=== PATIENT | male | born 2000 | race Caucasian/White ===

== ENCOUNTER 2020-05-28 09:22 | Outpatient (REF) | payer MEDICAID, SELFPAY | END 2020-05-28 09:23 | disposition home or self-care (01) | LOC: HO.LAB 09:22 | PROVIDERS: Visit Provider Internal Medicine | DX: Z20.822 Contact with and (suspected) exposure to COVID-19 (principal) | CPT/HCPCS: 36415; C9803; U0003; U0005 ==

== ENCOUNTER 2020-07-10 15:00 | Outpatient (REF) | payer MEDICAID, SELFPAY | END 2020-07-10 15:01 | disposition home or self-care (01) | LOC: HO.LAB 15:00 | PROVIDERS: Visit Provider Internal Medicine | DX: Z20.822 Contact with and (suspected) exposure to COVID-19 (principal) | CPT/HCPCS: 36415; C9803; U0003; U0005 ==

== ENCOUNTER 2021-04-17 10:30 | Emergency (ER) | payer OTHER, SELFPAY ==
[2021-04-17 13:55] VITALS: BP 159/81; PULSE 84; RESP 18; TEMP 37; O2SAT 98; BMI 36.5
--- NOTE | 2021-04-17 14:30 | ED_ITS ---
HPI - Back Pain/Injury General Chief Complaint: Back Pain/Injury Stated Complaint: lower back spasms Time Seen by Provider: 04/17/21 14:29 History of Present Illness HPI Narrative: Patient complains of back pain and spasm which started at work when he went to lunch break, not aware of an injury at work No radiation of pain no numbness weakness or tingling no changes to bowel or bladder Related Data Previous Rx's Medication Instructions Recorded acetaminophen 500 mg tablet 1,000 mg PO QID PRN #30 tab 04/17/21 cyclobenzaprine 5 mg tablet 5 mg PO TID PRN #10 tab 04/17/21 ibuprofen 600 mg tablet 600 mg PO Q6H PRN #20 tab 04/17/21 Allergies Allergy/AdvReac Type Severity Reaction Status Date / Time No Known Allergies Allergy Unverified 01/05/20 16:46 Review of Systems Review of Systems: Positive for back pain and spasm Negatives are no fevers no chills no dizziness no weakness no headache no neck pain no chest pain no dysuria no incontinence no changes to bowel or bladder no loss of strength or sensation no numbness weakness or tingling no radiation of pain Yes all other systems are reviewed and are negative [facility] Past Medical History Source: nursing notes reviewed Medical History (Updated 04/18/21 @ 00:00 by Background Daemon) No known health problems Social History Social History Advance Directives: No Advance Directives Information Provided: No Physical Exam Vital Signs: Vital Signs: Last Vital Signs Temp 98.6 F 04/17/21 13:55 Pulse 84 04/17/21 13:55 Resp 18 04/17/21 13:55 BP 159/81 H 04/17/21 13:55 Pulse Ox 98 04/17/21 13:55 BMI result Body Mass Index 36.5 General appearance is no acute distress The head is normocephalic atraumatic Neck is supple nontender Chest is clear to auscultation bilateral Respiratory no distress The abdomen soft nontender The back had lower lumbar paraspinal soft tissue tenderness no focal bony tenderness, pain is easily reproduced with movement, skin was normal, no CVA tenderness Extremities full range of motion x4 Neuro no focal motor sensory deficits Course Course Course Narrative: Patient with musculoskeletal back pain, no neurologic deficit no changes to bowel or bladder is discharged Discharge Plan Discharge Clinical Impression: Strain of lumbar region Patient Disposition: Home, Self-Care Additional Instructions: You can use Tylenol Motrin for pain Flexeril as a muscle relaxer that may cause drowsiness and may be helpful Massage and chiropractor often helpful Follow with your doctor if needed Return any time if worse Prescriptions: New cyclobenzaprine 5 mg tablet 5 mg PO TID PRN (Reason: muscle spasm) Qty: 10 RF: 0 ibuprofen 600 mg tablet 600 mg PO Q6H PRN (Reason: pain) Qty: 20 RF: 0 acetaminophen 500 mg tablet 1,000 mg PO QID PRN (Reason: pain) Qty: 30 RF: 0 Stand Alone Forms: Work/School Release Interventions: ED Discharge Assessment Last Done: 04/17/21 14:50 Discharge Date/Time: 04/17/21 14:51
[2021-04-17] MEDS: Ibuprofen 600 MG TABLET PO (14:49)
== END 2021-04-17 14:51 | disposition home or self-care (01) ==
PROVIDERS: Emergency Provider Emergency Medicine
DX: S39.012A Strain of muscle, fascia and tendon of lower back, initial encounter (principal); X58.XXXA Exposure to other specified factors, initial encounter; Y93.9 Activity, unspecified; Y92.9 Unspecified place or not applicable; Y99.9 Unspecified external cause status
CPT/HCPCS: 99283; 99284

== ENCOUNTER 2021-05-01 12:46 | Outpatient (REF) | payer OTHER, SELFPAY ==
[2021-05-01 13:50] LABS: Binax Internal Control QC Valid; Binax Now Covid-19 Ag Negative (Negative)
== END 2021-05-01 12:47 | disposition home or self-care (01) ==
LOC: HO.LAB 12:46
PROVIDERS: Visit Provider Internal Medicine
DX: Z20.822 Contact with and (suspected) exposure to COVID-19 (principal)
CPT/HCPCS: C9803

== ENCOUNTER 2021-05-08 12:09 | Outpatient (REF) | payer OTHER, SELFPAY ==
[2021-05-08 13:06] LABS: COVID-19 Test Negative (Negative); IDNOW Serial# 16C4AD1C
== END 2021-05-08 12:10 | disposition home or self-care (01) ==
LOC: HO.LAB 12:09
PROVIDERS: Visit Provider Internal Medicine
DX: Z20.822 Contact with and (suspected) exposure to COVID-19 (principal)
CPT/HCPCS: 87635; C9803

== ENCOUNTER 2021-05-28 13:21 | Outpatient (REF) | payer OTHER, SELFPAY ==
[2021-05-28 14:03] LABS: COVID-19 Test Negative (Negative)
== END 2021-05-28 13:22 | disposition home or self-care (01) ==
LOC: HO.LAB 13:21
PROVIDERS: Visit Provider Internal Medicine
DX: Z20.822 Contact with and (suspected) exposure to COVID-19 (principal)
CPT/HCPCS: 87635; C9803

== ENCOUNTER 2021-06-05 13:09 | Outpatient (REF) | payer MEDICAID, SELFPAY ==
[2021-06-05 13:32] LABS: COVID-19 Test Negative (Negative)
== END 2021-06-05 13:10 | disposition home or self-care (01) ==
LOC: HO.LAB 13:09
PROVIDERS: Visit Provider Internal Medicine
DX: Z20.822 Contact with and (suspected) exposure to COVID-19 (principal)
CPT/HCPCS: 87635; C9803

== ENCOUNTER 2022-01-29 11:31 | Emergency (ER) | payer OTHER, SELFPAY ==
--- NOTE | ~2022-01-29 | CT_ITS ---
EXAMINATION: CT ABDOMEN AND PELVIS WITHOUT CONTRAST CLINICAL INFORMATION: Right upper quadrant and right lower quadrant pain COMPARISON: None TECHNIQUE: Multidetector volumetric imaging was performed from the superior aspect of the liver through the pubic symphysis. Sagittal and coronal reformatted images were obtained on the technologist's workstation. This CT examination was performed using dose optimization techniques as appropriate, variously including the following: *Automated exposure control *Adjustment of mA and/or kV according to patient size (this includes techniques or standardized protocols for targeted exams where dose is matched to indication/reason for exam; i.e. extremities or head) *Use of iterative reconstruction technique DLP: 1011 mGy-cm FINDINGS: LUNG BASES: The visualized lung bases are unremarkable. No pleural or pericardial effusion. LIVER, GALLBLADDER, AND BILIARY TREE: The liver is normal in size, shape, and attenuation. No focal hepatic lesion or biliary ductal dilatation is present. The gallbladder is unremarkable with no evidence of radiopaque gallstones, gallbladder wall thickening, or obvious pericholecystic inflammatory changes. PANCREAS: Unremarkable. SPLEEN: Unremarkable. ADRENAL GLANDS: Unremarkable. KIDNEYS AND URETERS: The kidneys are normal in size, shape, and attenuation. No hydronephrosis, hydroureter, or calculi seen. No perinephric stranding. BLADDER: Unremarkable. GASTROINTESTINAL TRACT: No dilated loops of large or small bowel are evident. No free air or free fluid is seen. No pericolonic inflammatory changes seen. The appendix is visualized and appears unremarkable. ABDOMINAL WALL: No significant hernia is appreciated. LYMPH NODES: No lymphadenopathy appreciated. VASCULAR: Unremarkable. PELVIC VISCERA: Unremarkable. OSSEOUS STRUCTURES: Unremarkable. CT/CT abdomen pelvis wo IV con IMPRESSION: No evidence of ileus or obstruction. No evidence of acute appendicitis. No evidence of obstructive uropathy. No evidence of acute cholecystitis. Fleischner guidelines were followed.
--- NOTE | ~2022-01-29 | XR_ITS ---
EXAMINATION: XR CHEST CLINICAL INFORMATION: Pain with inspiration COMPARISON: May 22, 2009 TECHNIQUE: 2 views of the chest were obtained. FINDINGS: No significant abnormality is noted involving the heart, lungs, mediastinum, bony thorax or soft tissues. XR/XR chest 2V IMPRESSION: No acute disease.
[2022-01-29 11:40] VITALS: BP 135/62; PULSE 74; RESP 16; TEMP 36; O2SAT 97; BMI 38.0
[2022-01-29 11:51] LABS: MANUAL DIFF FLAG NO
[2022-01-29 11:53] LABS: Basophils Absolute Auto 0.1 X10*3/uL (0.0-0.2); Basophils Percent Auto 0.6 % (0-2); Eosinophils Absolute Auto 0.2 X10*3/uL (0.0-0.4); Eosinophils Percent Auto 1.6 % (0-4); Hematocrit 44.5 % (42.0-52.0); Hemoglobin 15.5 g/dl (14.0-18.0); Imm Gran Abs Auto 0.04 X10*3/uL (0.00-0.03); Imm Gran Pct Auto 0.4 % (0.0-0.4); Lymphocytes Absolute Auto 2.4 X10*3/uL (1.2-4.9); Lymphocytes Percent Auto 23.9 % (20-40); Mean Corpuscular HGB Conc 34.8 g/dl (31.0-36.0); Mean Corpuscular Hemoglobin 30.9 pg (27.0-33.0); Mean Corpuscular Volume 88.8 fL (80.0-98.0); Mean Platelet Volume 10.5 fL (9.4-12.4); Monocytes Absolute Auto 0.6 X10*3/uL (0.1-1.2); Monocytes Percent Auto 5.5 % (2-11); Neutrophils Absolute Auto 6.8 x10*3/uL (2.0-8.3); Platelet Count 274 X10*3/uL (160-400); Red Blood Count 5.01 X10*6/uL (4.60-5.80); Red Cell Distribution Width 12.3 % (11.0-16.0); White Blood Count 10.1 X10*3/uL (4.8-10.8)
[2022-01-29 12:08] LABS: Anion Gap 14 (12-20); Blood Urea Nitrogen 17 mg/dL (9-16); Calcium 9.8 mg/dL (8.4-10.2); Carbon Dioxide 25 mmol/L (22-29); Chloride 107 mmol/L (96-108); Creatinine Clr Calc Pharmacy 179.2; Estimated Glomerular Filt Rate > 60; Glucose Random 96 mg/dL (60-115); Potassium 4.6 mmol/L (3.3-5.1); Sodium 141 mmol/L (135-145)
--- NOTE | 2022-01-29 15:27 | ED_ITS ---
HPI - Abdominal Pain General Chief Complaint: Abdominal Pain Stated Complaint: pain in lower stomach and back when breathing Time Seen by Provider: 01/29/22 15:11 Source: patient Mode of arrival: ambulatory Limitations: no limitations History of Present Illness HPI narrative: 21-year-old male who presents emergency department for evaluation of lower abdominal pain radiating to his back. The patient states the pain started yesterday mid afternoon while he was resting. He states that the pain came on suddenly and got gradually worse. He states the pain is been constant since onset. He describes the pain is a sharp pain which is 8/10 at its worst. He points to his lower abdomen when asked to localize the pain. Pain is worse with movement and with breathing. This is 1st episode of this type of pain. He did not take any pain medications at home. He denied fever, chills, rhinorrhea, sore throat, cough, chest pain. States he does feel slightly short of breath but denied dyspnea on exertion. Denied nausea or vomiting. He states that over the past 3-4 days he has had diarrhea he describes the diarrhea as watery stool up to 10 episodes per day. MD elicited complaint: abdominal pain Pertinent past history: none Onset (ago): day(s) (1) Pain Consistency: constant Location: RUQ, RLQ and LLQ Severity: severe Pain scale (0-10): 8 Quality: sharp Radiation: none Migration to: no migration Exacerbating factors: movement and other (Breathing) Relieving factors: nothing Associated symptoms: diarrhea Related Data Previous Rx's Medication Instructions Recorded acetaminophen 500 mg tablet 1,000 mg PO QID PRN pain #30 tabs 04/17/21 cyclobenzaprine 5 mg tablet 5 mg PO TID PRN muscle spasm #10 04/17/21 tabs ibuprofen 600 mg tablet 600 mg PO Q6H PRN pain #20 tabs 04/17/21 Allergies Allergy/AdvReac Type Severity Reaction Status Date / Time No Known Allergies Allergy Verified 01/29/22 12:01 Review of Systems Review of Systems Yes all other systems are reviewed and are negative [facility] Past Medical History [facility] Narrative: Past medical history: None. Past surgical history: None. Social history: Patient works for [employer]. He denies tobacco and alcohol use. He smokes marijuana daily, 4 times a day. Medical History No known health problems Social History Social History Advance Directives: No Advance Directives Information Provided: Yes Physical Exam ED Vital Signs: Vital Signs - 24 hr 01/29/22 11:40 Temperature 96.8 F Pulse Rate 74 Respiratory Rate 16 Blood Pressure 135/62 Pulse Oximetry 97 Oxygen Delivery Method Room Air BMI result Body Mass Index 38.0 Const General: cooperative and no acute distress Orientation/consciousness: oriented to person and oriented to place Limitations: no limitations HENMT Head: Yes normal to inspection, Yes normocephalic and Yes atraumatic Ears: external ears normal General nose exam: Normal external nose present Face and sinus: Yes normal facial exam Mouth: Normal oral and palatal mucosa present Throat: Yes posterior oropharynx normal Eyes General: appearance normal, both eyes and all related structures Pupils: Equal, round and reactive pupils present Neck Neck: Yes normal visual inspection, Yes no lymphadenopathy, Yes trachea midline and Yes supple Chest Chest palpation & inspection: normal inspection of the chest and normal palpation of entire chest wall Resp Effort & Inspection: normal respiratory effort and able to speak in complete sentences Auscultation: clear to auscultation bilaterally Cardio Rate: regular rate Rhythm: regular rhythm Heart sounds: S1 normal heart sound present, S2 normal heart sound present and no murmurs GI Inspection: Yes normal to inspection Palpation (GI): Soft to palpation, Tenderness to palpation present (GI) in the LLQ (Mild), in the RLQ (Moderate) and in the RUQ ([id number]) and no guarding Auscultation: normal bowel sounds General: Yes no CVA tenderness Back/Spine/Pelvis Back: no CVA tenderness Skin General skin exam: no rashes or lesions noted Neuro General: oriented to person and oriented to place Cranial nerves: Yes CN's II-XII intact bilaterally and Yes Equal, round and reactive pupils present Cognition (Neuro): normal cognition Motor exam (neuro): 5/5 motor strength present throughout Extrem General: Yes normal to inspection Psych Appearance: grossly normal Speech and movement: Normal speech and movement present Affect: normal affect Attitude: cooperative Thought process: Normal thought process present Thought content: Normal thought content present Course Course Course Narrative: 21-year-old male who presents emergency department for evaluation of lower abdominal pain which came on at rest yesterday mid afternoon, the pain is sharp, constant and 8/10. Patient has also had diarrhea for 3-4 days, up to 10 stools per day. Vital signs were normal. Physical examination did reveal mild left lower quadrant tenderness, moderate to severe right lower quadrant tenderness and mild to moderate right upper quadrant tenderness. Laboratory evaluation was ordered at triage glued CBC, CMP and chest x-ray. These tests were unremarkable. I did add liver panel and lipase. I also ordered a urinalysis, COVID-19/influenza and CT scan of the abdomen pelvis without IV contrast. Patient was ordered to get normal saline IV x1 L, Toradol 30 mg IV and Zofran 4 mg IV. 1536: Liver panel and lipase were normal. Patient got very minimal improvement of his pain with the above treatment. Re-examination of the patient's abdomen revealed no RUQ tenderness, moderate RLQ tenderness. Patient was ordered to get Zofran 4 mg IV. I did discuss the patient's presentation with our covering surgeon, Dr. Rico. Given his diarrhea it is possible the patient may have some type of viral infection causing his pain however appendicitis stones to be considered. The plan will be to treat his pain in the emergency department and sent him home with surgical follow-up within the next 1-2 days . Patient was advised to return to the emergency department however his pain was not completely resolve in 24 hours or if it was worse in any way. 1916: Patient's pain is 3/10. He does not want any further pain medications. The patient was discharged home. MDM - Abdominal Pain Lab Data Result diagrams: 01/29/22 11:46 01/29/22 11:46 Labs: Lab Results 01/29/22 01/29/22 01/29/22 Range/Units 11:46 11:46 16:15 WBC 10.1 (4.8-10.8) X10*3/uL RBC 5.01 (4.60-5.80) X10*6/uL Hgb 15.5 (14.0-18.0) g/dl Hct 44.5 (42.0-52.0) % MCV 88.8 (80.0-98.0) fL MCH 30.9 (27.0-33.0) pg MCHC 34.8 (31.0-36.0) g/dl RDW 12.3 (11.0-16.0) % Plt Count 274 (160-400) X10*3/uL MPV 10.5 (9.4-12.4) fL Immature Gran % (Auto) 0.4 (0.0-0.4) % Neut % (Auto) 68.0 (45-73) % Lymph % (Auto) 23.9 (20-40) % [place] % (Auto) 5.5 (2-11) % Eos % (Auto) 1.6 (0-4) % Baso % (Auto) 0.6 (0-2) % Lymph # (Auto) 2.4 (1.2-4.9) X10*3/uL [place] # (Auto) 0.6 (0.1-1.2) X10*3/uL Eos # (Auto) 0.2 (0.0-0.4) X10*3/uL Baso # (Auto) 0.1 (0.0-0.2) X10*3/uL Abs Immat Gran (auto) 0.04 H (0.00-0.03) X10*3/uL Absolute Neuts (auto) 6.8 (2.0-8.3) x10*3/uL Absolute Nucleated RBC 0.000 (0.0-0.012) X10*3/uL Nucleated RBC % (auto) 0.0 (0.0-0.2) /100WBC Sodium 141 (135-145) mmol/L Potassium 4.6 (3.3-5.1) mmol/L Chloride 107 (96-108) mmol/L Carbon Dioxide 25 (22-29) mmol/L Anion Gap 14 (12-20) BUN 17 H (9-16) mg/dL Creatinine 0.79 (0.5-1.4) mg/dL Estim Creat Clear Calc 179.2 Estimated GFR > 60 Random Glucose 96 (60-115) mg/dL Calcium 9.8 (8.4-10.2) mg/dL Total Bilirubin 0.3 (0.0-1.0) mg/dL Direct Bilirubin < 0.2 (0.0-0.5) mg/dL AST 47 H (5-37) U/L ALT 88 H (0-40) U/L Alkaline Phosphatase 78 (39-117) U/L Total Protein 7.4 (6.5-8.0) g/dL Albumin 4.5 (3.5-5.0) g/dL Lipase 16 (8-78) U/L COVID-19 (CHANDRA) (Negative) COVID-19 Clin Com Influenza Type A (BERNICE) Negative (Negative) Influenza Type B (BERNICE) Negative (Negative) Influenza A & B Note See Note 01/29/22 Range/Units 16:15 WBC (4.8-10.8) X10*3/uL RBC (4.60-5.80) X10*6/uL Hgb (14.0-18.0) g/dl Hct (42.0-52.0) % MCV (80.0-98.0) fL MCH (27.0-33.0) pg MCHC (31.0-36.0) g/dl RDW (11.0-16.0) % Plt Count (160-400) X10*3/uL MPV (9.4-12.4) fL Immature Gran % (Auto) (0.0-0.4) % Neut % (Auto) (45-73) % Lymph % (Auto) (20-40) % [place] % (Auto) (2-11) % Eos % (Auto) (0-4) % Baso % (Auto) (0-2) % Lymph # (Auto) (1.2-4.9) X10*3/uL [place] # (Auto) (0.1-1.2) X10*3/uL Eos # (Auto) (0.0-0.4) X10*3/uL Baso # (Auto) (0.0-0.2) X10*3/uL Abs Immat Gran (auto) (0.00-0.03) X10*3/uL Absolute Neuts (auto) (2.0-8.3) x10*3/uL Absolute Nucleated RBC (0.0-0.012) X10*3/uL Nucleated RBC % (auto) (0.0-0.2) /100WBC Sodium (135-145) mmol/L Potassium (3.3-5.1) mmol/L Chloride (96-108) mmol/L Carbon Dioxide (22-29) mmol/L Anion Gap (12-20) BUN (9-16) mg/dL Creatinine (0.5-1.4) mg/dL Estim Creat Clear Calc Estimated GFR Random Glucose (60-115) mg/dL Calcium (8.4-10.2) mg/dL Total Bilirubin (0.0-1.0) mg/dL Direct Bilirubin (0.0-0.5) mg/dL AST (5-37) U/L ALT (0-40) U/L Alkaline Phosphatase (39-117) U/L Total Protein (6.5-8.0) g/dL Albumin (3.5-5.0) g/dL Lipase (8-78) U/L COVID-19 (CHANDRA) Negative (Negative) COVID-19 Clin Com See Note Influenza Type A (BERNICE) (Negative) Influenza Type B (BERNICE) (Negative) Influenza A & B Note Discharge Plan Discharge Clinical Impression: Abdominal pain Qualifiers: Abdominal location: right lower quadrant Qualified Code(s): R10.31 - Right lower quadrant pain Diarrhea Qualifiers: Diarrhea type: unspecified type Qualified Code(s): R19.7 - Diarrhea, unspecified Patient Disposition: Home, Self-Care Instructions: Abdominal Pain (ED) Additional Instructions: Your laboratory evaluation was normal. Your chest x-ray was unremarkable. Your CT scan of the abdomen pelvis was unremarkable. At this time, your appendix appears normal however you can still have appendicitis with a normal appearing appendix on a CT scan I did talk to our surgeon on-call, Dr. Rico. She wants you to call the surgical office tomorrow morning and make a follow-up within 1-2 days with a provider in the office. Take ibuprofen 200 mg pills, 3 pills every 6 hours as needed for pain. Take Tylenol (acetaminophen) 500 mg pills, 2 pills every 4 to 6 hours as needed for pain. If your pain gets worse over the next 24 hours or does not resolve completely and the surgeon cannot see you , you should return to the emergency department so that we can re-evaluate you for possible appendicitis. Please return to the emergency department if your symptoms get worse or if you develop any symptoms that are concerning to you. Prescriptions: No Action cyclobenzaprine 5 mg tablet 5 mg PO TID PRN (Reason: muscle spasm) Qty: 10 0RF ibuprofen 600 mg tablet 600 mg PO Q6H PRN (Reason: pain) Qty: 20 0RF acetaminophen 500 mg tablet 1,000 mg PO QID PRN (Reason: pain) Qty: 30 0RF
[2022-01-29 15:29] LABS: Alanine Aminotransferase 88 U/L (0-40); Albumin Level 4.5 g/dL (3.5-5.0); Alkaline Phosphatase 78 U/L (39-117); Aspartate Amino Transferase 47 U/L (5-37); Bilirubin Direct < 0.2 mg/dL (0.0-0.5); Bilirubin Total 0.3 mg/dL (0.0-1.0); Lipase 16 U/L (8-78); Total Protein 7.4 g/dL (6.5-8.0)
[2022-01-29] MEDS: ondansetron HCL 4 MG/2 ML VIAL IVPUSH (15:49)
[2022-01-29] MEDS: Ketorolac Tromethamine 15 MG/ML VIAL 30 MG IVPUSH (15:49)
[2022-01-29] MEDS: 0.9 % Sodium Chloride 1,000 ML 999 ML IV (15:58)
[2022-01-29 16:41] LABS: COVID-19 Test Negative (Negative); IDNOW Serial# 16C4AD1C; Influenza A Negative (Negative); Influenza B2 Negative (Negative)
[2022-01-29] MEDS: Morphine Sulfate 4 MG/ML CARTRIDGE IVPUSH (17:33)
== END 2022-01-29 19:33 | disposition home or self-care (01) ==
PROVIDERS: Emergency Provider Emergency Medicine Emergency Medical Services
DX: R07.89 Other chest pain (principal); R06.02 Shortness of breath; R10.9 Unspecified abdominal pain; R10.32 Left lower quadrant pain; Z20.822 Contact with and (suspected) exposure to COVID-19; Z79.899 Other long term (current) drug therapy
CPT/HCPCS: 36415; 71046; 74176; 80048; 80076; 83690; 85025; 87502; 87635; 96361; 96374; 96375; 99283; 99284; J1885; J2270; J2405

== ENCOUNTER 2022-01-30 11:09 | Emergency (ER) | payer OTHER, SELFPAY ==
--- NOTE | ~2022-01-30 | US_ITS ---
EXAMINATION: US ABDOMEN LIMITED CLINICAL INFORMATION: Upper abdominal pain. COMPARISON: None TECHNIQUE: Real-time imaging of the right upper quadrant abdominal viscera. The control clerk repairs reports that the study is quite limited due to patient body cyst. FINDINGS: PANCREAS: Obscured by bowel gas and patient body habitus. LIVER: Portions of the liver are not seen. The portions of the liver that are identified by the control clerk repairs near the gallbladder fossa do appear grossly normal. There is no evidence of intrahepatic biliary dilatation. GALLBLADDER: Normal. The gallbladder is physiologically distended without evidence of stones, sludge, polyps, wall thickening or pericholecystic fluid. COMMON BILE DUCT: Normal in caliber measuring 0.5 cm in diameter. RIGHT KIDNEY: Right kidney is not evaluated by the control clerk repairs due to patient body habitus. US/US abdomen limited IMPRESSION: Very limited study. No gallstones. CT would be advised for more complete evaluation of this particular case.
--- NOTE | ~2022-01-30 | CT_ITS ---
EXAMINATION: CT ABDOMEN AND PELVIS WITH CONTRAST CLINICAL INFORMATION: Right lower quadrant tenderness, worsening pain. COMPARISON: Ultrasound abdomen 01/30/2022 TECHNIQUE: Multidetector volumetric images were obtained from the superior aspect of the liver through the pubic symphysis following administration 85 mL of Omnipaque 350 intravenous contrast. Sagittal and coronal reformatted images were obtained on the technologist's workstation. Oral contrast: No This CT examination was performed using dose optimization techniques as appropriate, variously including the following: *Automated exposure control *Adjustment of mA and/or kV according to patient size (this includes techniques or standardized protocols for targeted exams where dose is matched to indication/reason for exam; i.e. extremities or head) *Use of iterative reconstruction technique DLP: 1060 mGy-cm FINDINGS: LUNG BASES: The visualized lung bases are unremarkable. LIVER, GALLBLADDER, AND BILIARY TREE: The liver is normal in size, shape, and attenuation. No focal hepatic lesion or biliary ductal dilatation is present. The gallbladder is unremarkable with no evidence of radiopaque gallstones, gallbladder wall thickening, or obvious pericholecystic inflammatory changes. PANCREAS: Unremarkable. SPLEEN: Unremarkable. ADRENAL GLANDS: Unremarkable. KIDNEYS AND URETERS: The kidneys are normal in size, shape, and attenuation. No hydronephrosis, hydroureter, or calculi seen. No perinephric stranding. BLADDER: Unremarkable. GASTROINTESTINAL TRACT: There is scattered stool seen throughout the colon without distention. The small bowel loops are normal caliber. The appendix is normal caliber. No inflammatory process seen in the abdomen. ABDOMINAL WALL: No significant hernia is appreciated. LYMPH NODES: Normal. VASCULAR: Unremarkable. PELVIC VISCERA: The prostate gland is normal size. Periprosthetic fat planes are preserved. OSSEOUS STRUCTURES: No aggressive lytic or sclerotic process seen. CT/CT abdomen pelvis w IV con IMPRESSION: No acute intra-abdominal process seen. Normal appendix. Fleischner guidelines were followed.
[2022-01-30 11:15] VITALS: BP 116/95; PULSE 67; RESP 18; TEMP 37.2; O2SAT 98; BMI 38.0
--- NOTE | 2022-01-30 12:27 | ED.ABDPAIN ---
HPI - Abdominal Pain General Chief Complaint: Abdominal Pain Stated Complaint: abd pain Time Seen by Provider: 01/30/22 12:25 Source: patient Mode of arrival: ambulatory Limitations: no limitations History of Present Illness HPI narrative: 21-year-old male presents to the ER for re-evaluation of lower abdominal pain. He was seen here in the emergency department yesterday, had unremarkable lab workup and a CT scan of his abdomen and pelvis that was normal. He had right lower quadrant tenderness on examination with concern for possible appendicitis. This surgeon was contacted by the ER provider and outpatient follow up was recommended. He called the Surgeon Office this morning and made an appointment for tomorrow at 3pm. Patient states this morning of his right lower quadrant pain. He states the pain is worse in his right lower quadrant when he stands up, walks or takes deep breaths. He had 1 episode of diarrhea today, this is overall improved from the last 1 week where he was having up to 10 episodes of nonbloody diarrhea per day. He denies any nausea, vomiting, fever, chills. He states he is back for re-evaluation because he was told to come back if his abdominal pain worsened at all. MD elicited complaint: abdominal pain Pertinent past history: none Onset (ago): day(s) Pain Consistency: constant Location: RLQ and LLQ Severity: moderate Pain scale (0-10): 7 Quality: aching and fullness Radiation: LLQ Exacerbating factors: other (Deep breaths, walking, standing) Relieving factors: other (Lying supine) Context: history of similar episodes Associated symptoms: diarrhea Related Data Previous Rx's Medication Instructions Recorded acetaminophen 500 mg tablet 1,000 mg PO QID PRN pain #30 tabs 04/17/21 cyclobenzaprine 5 mg tablet 5 mg PO TID PRN muscle spasm #10 04/17/21 tabs ibuprofen 600 mg tablet 600 mg PO Q6H PRN pain #20 tabs 04/17/21 amoxicillin 875 mg-potassium 1 tab PO BID #20 tabs 01/30/22 clavulanate 125 mg tablet oxycodone 5 mg tablet 5 mg PO Q8H PRN severe pain (scale 01/30/22 score 7-10) #5 tabs Allergies Allergy/AdvReac Type Severity Reaction Status Date / Time No Known Allergies Allergy Verified 01/29/22 12:01 Review of Systems Review of Systems Constitutional: No Fever, No Chills ENT/Mouth: No sore throat, No Rhinorrhea, No Swallowing Difficulty Cardiovascular: No Chest Pain, No SOB, No Orthopnea, No Edema Respiratory: No Cough, No Sputum, No Wheezing, No dyspnea Gastrointestinal: No Nausea, No Vomiting, + Diarrhea, + abdominal Pain, No Hematochezia, No Melena Genitourinary: No Dysuria, No Urinary Frequency, No Hematuria Musculoskeletal: No joint pain, No Myalgias Skin: No Skin Lesions, No rash Neuro: No Weakness, No Numbness, No Dizziness, No Headache Psych: No Anxiety/Panic, No Depression Heme/Lymph: No Bruising, No Lymphadenopathy Endocrine: No Polyuria, No Polydipsia PMFSH Past Medical History Medical History No known health problems Social History Social History Advance Directives: No Advance Directives Information Provided: Yes Physical Exam ED Vital Signs: Vital Signs - 24 hr 01/30/22 11:15 Temperature 98.9 F Pulse Rate 67 Respiratory Rate 18 Blood Pressure 116/95 H Pulse Oximetry 98 Oxygen Delivery Method Room Air BMI result Body Mass Index 38.0 Appearance: Alert. Oriented X3. No acute distress. Eyes: Pupils equal, round and reactive to light. ENT: Pharynx normal. Neck: Normal inspection. Neck supple. CVS: Normal heart rate and rhythm. Pulses normal. Respiratory: No respiratory distress. Breath sounds normal. Abdomen: Soft with RLQ tenderness to deep palpation, no guarding or rebound +BS x4 Skin: Skin warm and dry. Normal skin color. Normal skin turgor. No rashes. Extremities: No lower extremity edema. Neuro: Oriented X 3. No motor deficit. No sensory deficit. Course Course Course Narrative: 21-year-old male presenting to the ER for worsening right lower quadrant pain. He was seen here in the emergency department last night, no evidence of appendicitis on his CT scan. He is here with worsening pain. He does have pain to deep palpation of the right lower quadrant. Case was discussed with Dr. Osei. He is recommending repeat CT scan will, use of IV contrast this time. Patient agreeable with plan. Will also get ultrasound of his gallbladder, given increase in pain with inspiration and this could be referred pain from the gallbladder. Reevaluation(s) Reevaluation #1: Labs are unremarkable. No leukocytosis. Ultrasound is not showing any evidence of gallstones or cholecystitis. His abdominal CT scan was reviewed by Dr. Osei. At this time we are recommending patient go home with empiric oral antibiotics, pain control and plan to follow-up with surgery office tomorrow. 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 Return precautions were discussed and he agrees to follow-up with the surgeon tomorrow 15:00 as previously scheduled. Stable for DC. MDM - Abdominal Pain Lab Data Result diagrams: 01/30/22 12:50 01/30/22 12:50 Labs: Lab Results 01/30/22 01/30/22 01/30/22 Range/Units 12:50 12:50 13:31 WBC 8.2 (4.8-10.8) X10*3/uL RBC 4.96 (4.60-5.80) X10*6/uL Hgb 15.3 (14.0-18.0) g/dl Hct 43.9 (42.0-52.0) % MCV 88.5 (80.0-98.0) fL MCH 30.8 (27.0-33.0) pg MCHC 34.9 (31.0-36.0) g/dl RDW 12.4 (11.0-16.0) % Plt Count 251 (160-400) X10*3/uL MPV 10.8 (9.4-12.4) fL Immature Gran % (Auto) 0.5 H (0.0-0.4) % Neut % (Auto) 65.9 (45-73) % Lymph % (Auto) 25.5 (20-40) % Holmes % (Auto) 5.9 (2-11) % Eos % (Auto) 1.6 (0-4) % Baso % (Auto) 0.6 (0-2) % Lymph # (Auto) 2.1 (1.2-4.9) X10*3/uL [place] # (Auto) 0.5 (0.1-1.2) X10*3/uL Eos # (Auto) 0.1 (0.0-0.4) X10*3/uL Baso # (Auto) 0.1 (0.0-0.2) X10*3/uL Abs Immat Gran (auto) 0.04 H (0.00-0.03) X10*3/uL Absolute Neuts (auto) 5.4 (2.0-8.3) x10*3/uL Absolute Nucleated RBC 0.000 (0.0-0.012) X10*3/uL Nucleated RBC % (auto) 0.0 (0.0-0.2) /100WBC Sodium 139 (135-145) mmol/L Potassium 4.6 (3.3-5.1) mmol/L Chloride 106 (96-108) mmol/L Carbon Dioxide 24 (22-29) mmol/L Anion Gap 14 (12-20) BUN 11 (9-16) mg/dL Creatinine 0.77 (0.5-1.4) mg/dL Estim Creat Clear Calc 183.8 Estimated GFR > 60 Random Glucose 92 (60-115) mg/dL Calcium 9.1 D (8.4-10.2) mg/dL Magnesium 1.7 (1.6-2.6) mg/dL Total Bilirubin 0.4 (0.0-1.0) mg/dL Direct Bilirubin 0.2 (0.0-0.5) mg/dL AST 40 H (5-37) U/L ALT 76 H (0-40) U/L Alkaline Phosphatase 71 (39-117) U/L Total Protein 6.9 (6.5-8.0) g/dL Albumin 4.1 (3.5-5.0) g/dL Urine Color Yellow Urine Appearance Clear Urine pH 5.5 (5.0-9.0) Ur Specific [place] 1.020 (1.005-1.025) Urine Protein Negative (Neg-Trace) mg/dL Urine Glucose (UA) Negative (Negative) mg/dL Urine Ketones Negative (Negative) mg/dL Urine Blood Negative (Negative) Urine Nitrite Negative (Negative) Ur Leukocyte Esterase Trace H (Negative) Urine RBC 0-2 (0-2) /HPF Urine WBC 0-5 (0-5) /HPF Ur Squamous Epith Cells 0-2 (0-2) /HPF Urine Bacteria None Seen (None Seen) Hyaline Casts 0-2 (0-2) /LPF Discharge Plan Discharge Clinical Impression: Abdominal pain Patient Disposition: Home, Self-Care Instructions: Acute Abdominal Pain (ED) Additional Instructions: Your lab workup today was unremarkable. Your ultrasound did not show any evidence of gallstones. Your CT scan did not show any evidence of acute appendicitis or any acute cause of your pain. The surgeon is recommending that you start oral antibiotics, oral pain medication and follow-up with them in the office at tomorrow at 03:00 o'clock as scheduled. Stick to a bland diet where not feeling well. Recommend [id number] Pepto-Bismol or Imodium as needed for upset stomach and diarrhea. If you develop new or worsening symptoms call 911 or come back to the ER for further evaluation. Prescriptions: New amoxicillin-pot clavulanate 875-125 mg tablet 1 tab PO BID Qty: 20 0RF oxycodone 5 mg tablet 5 mg PO Q8H PRN (Reason: severe pain (scale score 7-10)) Qty: 5 0RF Rx Instructions: Partial Fill upon patient request. No Action cyclobenzaprine 5 mg tablet 5 mg PO TID PRN (Reason: muscle spasm) Qty: 10 0RF ibuprofen 600 mg tablet 600 mg PO Q6H PRN (Reason: pain) Qty: 20 0RF acetaminophen 500 mg tablet 1,000 mg PO QID PRN (Reason: pain) Qty: 30 0RF Referrals: Jonas Osei MD [Physician] - (RLQ pain)
[2022-01-30 12:56] LABS: MANUAL DIFF FLAG NO
[2022-01-30 13:04] LABS: Basophils Absolute Auto 0.1 X10*3/uL (0.0-0.2); Basophils Percent Auto 0.6 % (0-2); Eosinophils Absolute Auto 0.1 X10*3/uL (0.0-0.4); Eosinophils Percent Auto 1.6 % (0-4); Hematocrit 43.9 % (42.0-52.0); Hemoglobin 15.3 g/dl (14.0-18.0); Imm Gran Abs Auto 0.04 X10*3/uL (0.00-0.03); Imm Gran Pct Auto 0.5 % (0.0-0.4); Lymphocytes Absolute Auto 2.1 X10*3/uL (1.2-4.9); Lymphocytes Percent Auto 25.5 % (20-40); Mean Corpuscular HGB Conc 34.9 g/dl (31.0-36.0); Mean Corpuscular Hemoglobin 30.8 pg (27.0-33.0); Mean Corpuscular Volume 88.5 fL (80.0-98.0); Mean Platelet Volume 10.8 fL (9.4-12.4); Monocytes Absolute Auto 0.5 X10*3/uL (0.1-1.2); Monocytes Percent Auto 5.9 % (2-11); Neutrophils Absolute Auto 5.4 x10*3/uL (2.0-8.3); Neutrophils Percent Auto 65.9 % (45-73); Platelet Count 251 X10*3/uL (160-400); Red Blood Count 4.96 X10*6/uL (4.60-5.80); Red Cell Distribution Width 12.4 % (11.0-16.0); White Blood Count 8.2 X10*3/uL (4.8-10.8)
[2022-01-30 13:19] LABS: Alanine Aminotransferase 76 U/L (0-40); Albumin Level 4.1 g/dL (3.5-5.0); Alkaline Phosphatase 71 U/L (39-117); Anion Gap 14 (12-20); Aspartate Amino Transferase 40 U/L (5-37); Bilirubin Direct 0.2 mg/dL (0.0-0.5); Bilirubin Total 0.4 mg/dL (0.0-1.0); Blood Urea Nitrogen 11 mg/dL (9-16); Calcium 9.1 mg/dL (8.4-10.2); Carbon Dioxide 24 mmol/L (22-29); Chloride 106 mmol/L (96-108); Creatinine Clr Calc Pharmacy 183.8; Estimated Glomerular Filt Rate > 60; Glucose Random 92 mg/dL (60-115); Magnesium 1.7 mg/dL (1.6-2.6); Potassium 4.6 mmol/L (3.3-5.1); Sodium 139 mmol/L (135-145); Total Protein 6.9 g/dL (6.5-8.0)
[2022-01-30 13:41] LABS: Appearance Urine Clear; Color Urine Yellow; Glucose Urine UA Negative (Negative); Leukocyte Esterase Urine Trace (Negative); Nitrite Urine Negative (Negative); PH 5.5 (5.0-9.0); UMIC TRIGGER UACC YES; Urine Blood Negative (Negative); Urine Ketones Negative (Negative); Urine Protein Negative (Neg-Trace)
[2022-01-30 13:44] LABS: Bacteria Urine None Seen (None Seen); Hyaline Casts Urine 0-2 /LPF (0-2); RBC Urine 0-2 /HPF (0-2); Squamous Epithelial Cell Urine 0-2 /HPF (0-2); WBC Urine 0-5 /HPF (0-5)
[2022-01-30] MEDS: iohexoL 350 MG/ML 100 ML INFUS..BTL IV (16:13)
[2022-01-30 17:59] LABS: COVID-19 Test Negative (Negative)
--- NOTE | 2022-01-30 18:00 | HE.PHANOTE ---
[discharge] went to do med rec was told that admission was decided against
== END 2022-01-30 18:17 | disposition home or self-care (01) ==
PROVIDERS: Physician Assistant; Emergency Provider Student in an Organized Health Care Education/Training Program
DX: R10.30 Lower abdominal pain, unspecified (principal); Z20.822 Contact with and (suspected) exposure to COVID-19
CPT/HCPCS: 36415; 74177; 76705; 80048; 80076; 81001; 83735; 85025; 87635; 99284; Q9967

== ENCOUNTER → 2022-01-31 14:50 | Outpatient (BNVA) | payer OTHER, SELFPAY | PROVIDERS: Visit Provider Internal Medicine | DX: R74.8 Abnormal levels of other serum enzymes (principal); K52.9 Noninfective gastroenteritis and colitis, unspecified | CPT/HCPCS: 99202 ==

== ENCOUNTER 2023-02-10 15:50 | Outpatient (AMB) | payer OTHER, SELFPAY ==
[2023-02-10 16:06] VITALS: BP 122/68; PULSE 85; TEMP 36.6; O2SAT 98; BMI 38.0
--- NOTE | 2023-02-10 16:06 | MHC.OFFWIV ---
Intake Vital Signs 02/10/23 16:06 Height 5 ft 8 in Weight 250 lb BMI 38.0 BP 122/68 Blood Pressure Location Rt brachial Position Sitting Pulse 85 Pulse Source Pulse Oximeter Temp 97.8 F Temp Source Temporal Artery Scan Pulse Oximetry (%) 98 Intake Visit Reasons: EP, UTI? Intake Note: pt is here for c/o possible uti Patient Tobacco Use Status: Never used Tobacco Allergies No Known Allergies Allergy (Verified 02/11/23 06:36) Medication List - Last Reconciled 02/11/23 by Jose Mejia MD sulfamethoxazole-trimethoprim 800-160 mg (Bactrim DS) 1 tab PO BID 5 days Do you need a note to return to daycare/school/sports/work: Yes HPI EP, UTI? 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 She has been seeing independently for painful symptoms during intercourse. Patient would like to have his urine checked. He has reported 1 or 2 episodes of urinary incontinence. [facility] Medical History No known health problems Social History Household Members: Family Alcohol intake: never Patient Tobacco Use Status: Never used Tobacco Tobacco use type: Cigarette Substance Use Type: Marijuana Physical Exam Vital Signs: Last Vital Signs Temp 97.8 F 02/10/23 16:06 Pulse 85 02/10/23 16:06 BP 122/68 02/10/23 16:06 Pulse Ox 98 02/10/23 16:06 BMI result Body Mass Index 38.0 Const General: cooperative, healthy appearing, alert and awake Results AMB Urinalysis, Automated UA Leukoctes 0 Eren/uL Last Edit by Lion Corbett CMA on 02/10/23 16:23 UA Nitrite Negative Last Edit by Lion Corbett CMA on 02/10/23 16:23 UA Urobilinogen 0.2 mg/dL Last Edit by Lion Corbett CMA on 02/10/23 16:23 UA Protein 0 mg/dL Last Edit by Lion Corbett CMA on 02/10/23 16:23 UA pH 6.0 Last Edit by Lion Corbett CMA on 02/10/23 16:23 UA Blood 0 Spike/uL Last Edit by Lion Corbett CMA on 02/10/23 16:23 UA Specific [place] 1.025 Last Edit by Lion Corbett CMA on 02/10/23 16:23 UA Ketone Negative Last Edit by Lion Corbett CMA on 02/10/23 16:23 UA Bilirubin 0 mg/dL Last Edit by Lion Corbett CMA on 02/10/23 16:23 UA Glucose 0 mg/dL Last Edit by Lion Corbett CMA on 02/10/23 16:23 Results Reviewed Results Reviewed: Laboratory Last Values Urine pH (Auto) 6.0 02/10/23 16:19 Specific [place] (Auto) 1.025 02/10/23 16:19 Urine Protein (Auto) 0 mg/dL 02/10/23 16:19 Glucose (UA)(Auto) 0 mg/dL 02/10/23 16:19 Urine Ketones (Auto) Negative 02/10/23 16:19 Urine Blood (Auto) 0 Spike/uL 02/10/23 16:19 Urine Nitrite (Auto) Negative 02/10/23 16:19 Urine Bilirubin (Auto) 0 mg/dL 02/10/23 16:19 Urine Urobilinogen (Auto) 0.2 mg/dL 02/10/23 16:19 Leukocyte Esterase (Auto) 0 Eren/uL 02/10/23 16:19 Assessment & Plan Assessment & Plan (1) Urinary incontinence: Code(s): R32 - Unspecified urinary incontinence Plan: Prophylactic antibiotics called in. Urinalysis was reviewed. If symptoms not improved to follow-up here. Orders: Orders AMB Urinalysis Automated 02/10/23 Z13.9 - Encounter for screening, unspecified Medications: New sulfamethoxazole-trimethoprim 800-160 mg (Bactrim DS) 1 tab PO BID 5 days 10 tabs 0RF Coding Level of Care Code Est Pt Level 3 (79517) Diagnoses Urinary incontinence R32
== END 2023-02-10 16:42 | disposition home or self-care (01) ==
PROVIDERS: Visit Provider Internal Medicine
DX: R32 Unspecified urinary incontinence (principal)
CPT/HCPCS: 81003; 99213

== ENCOUNTER 2023-02-28 10:34 | Emergency (ER) | payer OTHER, SELFPAY ==
[2023-02-28 10:40] VITALS: BP 135/84; PULSE 67; RESP 16; TEMP 36; O2SAT 97; BMI 35.0
--- NOTE | 2023-02-28 10:41 | ED.URI ---
HPI - URI/Sore Throat General Chief Complaint: Upper Respiratory Symptoms Stated Complaint: sore throat Time Seen by Provider: 02/28/23 10:40 Source: patient Mode of arrival: ambulatory Limitations: no limitations History of Present Illness HPI Narrative: patient is 23 year old male who presents emergency department for evaluation of sore throat x4 days, painful swallowing. Awoke this morning with redness to the left eye and eyes crusted shut with small amount of drainage. Denies fevers, chills, your pain, neck pain, neck stiffness, headache, shortness of breath, difficulty breathing. Denies known sick contacts. Related Data Previous Rx's Medication Instructions Recorded sulfamethoxazole 800 1 tab PO BID 5 days #10 tabs 02/10/23 mg-trimethoprim 160 mg tablet (Bactrim DS) penicillin V potassium 500 mg 500 mg PO BID #19 tabs 02/28/23 tablet polymyxin B sulfate 10,000 1 drp ophthalmic (eye) Q3H 7 days 02/28/23 unit-trimethoprim 1 mg/mL eye #10 mL drops (Polytrim) Allergies Allergy/AdvReac Type Severity Reaction Status Date / Time No Known Allergies Allergy Verified 02/11/23 06:36 Review of Systems Review of Systems: Yes all other systems are reviewed and are negative PMFSH Past Medical History Attestation statement: The following information was validated with the patient. Source: old records reviewed Medical History No known health problems Social History Social History Household Members: Family Alcohol intake: never Patient Tobacco Use Status: Never used Tobacco Tobacco use type: Cigarette Substance Use Type: Marijuana Advance Directives: No Advance Directives Information Provided: No Physical Exam Vital Signs: Vital Signs: Last Vital Signs Temp 96.8 F 02/28/23 10:40 Pulse 67 02/28/23 10:40 Resp 16 02/28/23 10:40 BP 135/84 02/28/23 10:40 Pulse Ox 97 02/28/23 10:40 O2 Del Method Room Air 02/28/23 10:40 BMI result Body Mass Index 35.0 Appearance: Alert.?Oriented to person, place and time. No acute distress.?Normal affect. Eyes: Pupils equal, round and reactive to light.? left sclera injected, conjunctiva erythematous. ENT: TM normal bilaterally. Pharynx Erythematous with tonsillar hypertrophy 2+ bilaterally, with white exudates, uvula midline, no trismus, no drooling Neck: Normal inspection.? Neck supple.??No cervical adenopathy CVS: Heart sounds normal. Normal heart rate and rhythm.? Pulses normal.?? Respiratory: No respiratory distress.? Lung sounds clear to auscultation bilaterally?? Abdomen: Soft and non-tender. Normoactive bowel sounds. Skin: Skin warm and dry.? Normal skin color.? ? Extremities: No lower extremity edema.? Neuro: Moves all extremities spontaneously. Sensation intact bilaterally. No motor deficits. Ambulates with normal steady gait. Medical Decision Making Medical Decision Making [facility] Narrative: Patient is a 23 old male presents emergency department for evaluation of sore throat left eye redness, noted to have streptococcal pharyngitis without evidence of peritonsillar or retropharyngeal abscess, managing secretions, swallowing normally, not consistent with Helio's angina. Most likely bacterial conjunctivitis of the left eye, versus viral conjunctivitis. Sent prescription for antibiotic to pharmacy, discussed conservative treatment, reviewed worrisome signs and symptoms that would warrant re-evaluation in the emergency department, all questions answered. Stable for discharge. Differential Diagnosis Differential Diagnoses: The differential diagnosis associated with the presentation includes ( As noted above) Lab Data [facility] Lab Attestation statement: I reviewed the patient's lab results. ( noted above) Labs: Lab Results 02/28/23 Range/Units 10:46 S. pyogenes GrpA BERNICE Positive A (Negative) Independent Historian Clinical information obtained from an independent historian. History obtained from or confirmed by: Parent ( present who confirms history) Prescription Management I considered prescription management with: Antibiotic Discharge Plan Discharge Clinical Impression: Acute streptococcal pharyngitis Acute bacterial conjunctivitis Qualifiers: Laterality: left Qualified Code(s): H10.32 - Unspecified acute conjunctivitis, left eye Patient Disposition: Home, Self-Care Instructions: Strep Throat (ED), How to Use Eye Drops (ED), Conjunctivitis (ED) Prescriptions: New penicillin V potassium 500 mg tablet 500 mg PO BID Qty: 19 0RF polymyxin B sulf-trimethoprim [Polytrim] 10,000 unit- 1 mg/mL drops 1 drp ophthalmic (eye) Q3H 7 Days Qty: 10 0RF Rx Instructions: while awake; do not exceed 6 doses in 24 hours No Action sulfamethoxazole-trimethoprim [Bactrim DS] 800-160 mg tablet 1 tab PO BID 5 Days Qty: 10 0RF Referrals: Physician,None [Primary Care Provider] - Discharge Date/Time: 02/28/23 11:15
[2023-02-28 10:57] LABS: IDNOW Serial# 08D9AD1C; Strep A Nucleic Acid Positive (Negative)
[2023-02-28] MEDS: Penicillin V Potassium 250 MG TABLET 500 MG PO (11:09)
== END 2023-02-28 11:15 | disposition home or self-care (01) ==
PROVIDERS: Nurse Practitioner Family; Emergency Provider Emergency Medicine Emergency Medical Services
DX: J02.0 Streptococcal pharyngitis (principal)
CPT/HCPCS: 87651; 99283

== ENCOUNTER 2023-03-04 20:54 | Emergency (ER) | payer OTHER, SELFPAY ==
[2023-03-04 20:57] VITALS: BP 141/93; PULSE 83; RESP 16; TEMP 36.4; O2SAT 96; BMI 37.7
[2023-03-04 21:09] VITALS: TEMP 37.1
--- NOTE | 2023-03-04 21:10 | PC.NURSE ---
airway patent pt speaking full clear sentences; approx day 4 with abx pt states he feels some improvement however pain persist. pt tolerating po intake. afebrile. awaiting primary eval by ed provider.
--- NOTE | 2023-03-04 21:52 | ED.GENADULT ---
HPI - General Adult General Chief complaint: General Medical Stated complaint: sore throat, strep throat not better Time Seen by Provider: 03/04/23 21:23 Source: patient Mode of arrival: ambulatory History of Present Illness HPI narrative: 23-year-old male with persistent sore throat despite being on antibiotics since 02/28. Related Data Previous Rx's Medication Instructions Recorded sulfamethoxazole 800 1 tab PO BID 5 days #10 tabs 02/10/23 mg-trimethoprim 160 mg tablet (Bactrim DS) polymyxin B sulfate 10,000 1 drp ophthalmic (eye) Q3H 7 days 02/28/23 unit-trimethoprim 1 mg/mL eye #10 mL drops (Polytrim) amoxicillin 875 mg-potassium 1 tab PO BID 10 days #20 tabs 03/04/23 clavulanate 125 mg tablet Allergies Allergy/AdvReac Type Severity Reaction Status Date / Time No Known Allergies Allergy Verified 03/04/23 20:57 Review of Systems Review of Systems: pertinent positives and negatives as stated in [facility] Past Medical History Source: nursing notes reviewed Medical History No known health problems Social History Social History Household Members: Family Alcohol intake: never Patient Tobacco Use Status: Never used Tobacco Tobacco use type: Cigarette Substance Use Type: Marijuana Advance Directives: No Physical Exam ED Vital Signs: Vital Signs - 24 hr 03/04/23 20:57 03/04/23 21:09 Temperature 97.5 F 98.8 F Pulse Rate 83 Respiratory Rate 16 Blood Pressure 141/93 H Pulse Oximetry 96 Oxygen Delivery Method Room Air BMI result Body Mass Index 37.7 VITAL SIGNS: Reviewed. GENERAL: Well developed, well nourished, in no acute distress. HEAD: Normocephalic/atraumatic EYES: PERRLA, EOMI EARS: Ext canals without abnormality, TMs non-bulging and non-erythematous NOSE: Nares patent bilateral OROPHARYNX: no oral lesions noted, posterior pharynx clear and erythematous with noted tonsillar enlargement/erythema/exudates, no trismus, no unilateral elevation of tonsillar pillars or uvular deviation NECK: Supple, no adenopathy LUNGS: Normal breath sounds. No adventitious sounds or accessory muscle use. SpO2<96> CARDIOVASCULAR: Regular rate and rhythm without noted murmurs ABDOMEN: Soft, non-tender, non-distended with bowel sounds. MUSCULOSKELETAL: No tenderness, deformities, or effusions noted on gross inspection. EXTREMITIES: No cyanosis, clubbing or edema. SKIN: Inspection of the skin reveals no rashes NEUROLOGIC: Alert and oriented x 4. Strength and sensation to light touch were grossly intact x 4. Medical Decision Making Medical Decision Making MDM Narrative: 23-year-old male with history and clinical presentation consistent with persistent strep pharyngitis, will switch antibiotics from penicillin V over to Augmentin there is no evidence of trismus or peritonsillar abscess at this time. Patient was also provided with the 1st dose of Augmentin as well as Cepacol and then discharged home. Differential Diagnosis Differential Diagnoses: The differential diagnosis associated with the presentation includes Please see the discussion above Admission/Observation Consideration of admission/observation: Escalation of care including admission/observation considered please see the discussion above External Record Review External record reviewed: Outpatient record, Prior outpatient labs and Prior outpatient radiology Discharge Plan Discharge Clinical Impression: Strep throat Patient Disposition: Home, Self-Care Instructions: Strep Throat (ED) Additional Instructions: 1. Continue to use Tylenol/ ibuprofen as needed for pain control or temperatures greater than 100.4. In addition, I recommend using [id number] Cepacol for additional throat pain relief. 2. Your antibiotic is being changed, you should stop taking penicillin V and start the new medication in the morning. You received the 1st dose this evening. Return to the ER for any worsening symptoms. Prescriptions: New amoxicillin-pot clavulanate 875-125 mg tablet 1 tab PO BID 10 Days Qty: 20 0RF Discontinued penicillin V potassium 500 mg tablet 500 mg PO BID Qty: 19 0RF No Action polymyxin B sulf-trimethoprim [Polytrim] 10,000 unit- 1 mg/mL drops 1 drp ophthalmic (eye) Q3H 7 Days Qty: 10 0RF Rx Instructions: while awake; do not exceed 6 doses in 24 hours sulfamethoxazole-trimethoprim [Bactrim DS] 800-160 mg tablet 1 tab PO BID 5 Days Qty: 10 0RF
[2023-03-04] MEDS: Throat Lozenge, Medicated LOZENGE 1 LOZENGE MUCOUS MEM (21:58)
[2023-03-04] MEDS: Amoxicillin/Potassium Clav 875 MG TABLET PO (21:58)
== END 2023-03-04 22:03 | disposition home or self-care (01) ==
PROVIDERS: Emergency Provider Student in an Organized Health Care Education/Training Program
DX: J02.0 Streptococcal pharyngitis (principal)
CPT/HCPCS: 99282; 99283

== ENCOUNTER 2023-06-20 11:52 | Emergency (ER) | payer OTHER, SELFPAY ==
--- NOTE | ~2023-06-20 | CT_ITS ---
EXAMINATION: CT FACIAL BONES WITHOUT CONTRAST CLINICAL INFORMATION: Maxillary sinus pressure. COMPARISON: None available. TECHNIQUE: Multidetector CT. Examination of the paranasal sinuses and maxillofacial region. No IV contrast reformatting in the coronal and parasagittal planes. This CT examination was performed using dose optimization techniques as appropriate, variously including the following: *Automated exposure control *Adjustment of mA and/or kV according to patient size (this includes techniques or standardized protocols for targeted exams where dose is matched to indication/reason for exam; i.e. extremities or head) *Use of iterative reconstruction technique DLP: 992 mGy-cm FINDINGS: There is no extra-axial collection demonstrated. The midline structures are not displaced. The piriform sinuses, epiglottis, hypopharynx, are patent. The adenoids are prominent which causes some narrowing of the nasopharyngeal airway. The oropharyngeal airway is slightly narrowed and there is prominence of the lymphoid ring. This is slightly greater on the right than the left. The parapharyngeal tissue planes are maintained. No suspicious abnormality in either orbit. No suspicious abnormality in the parotids or submandibular glands. The frontal sinuses are well pneumatized and aerated. Minor mucoperiosteal thickening of some of the ethmoid air cells. Moderate thickening in the right side of the sphenoid sinus. There are rounded convex inward densities within the maxillary sinuses consistent with retention cysts or polyps. The mastoid air cells appear well pneumatized and aerated. There is pneumatization in the skull base with some opacities bilaterally. Whether this is developmental or could be related to inflammatory thickening is uncertain. No disruption of the temporomandibular joint on either side. No large periapical abscess demonstrated in the mandible. No suspicious focal bony lesion. CT/CT facial bones wo IV con IMPRESSION: There are nasal sinus disease with small retention cysts or polyps in each maxillary sinus. Moderate thickening in the right sphenoid sinus. No fluid level demonstrated Thickening of the lymphoid ring in the oropharynx and including the adenoids.
--- NOTE | ~2023-06-20 | CT_ITS ---
EXAMINATION: CT HEAD WITHOUT CONTRAST CLINICAL INFORMATION: Frontal head pressure COMPARISON: None available. TECHNIQUE: Contiguous axial imaging was performed from the skull base to vertex without intravenous administration of contrast. This CT examination was performed using dose optimization techniques as appropriate, variously including the following: *Automated exposure control *Adjustment of mA and/or kV according to patient size (this includes techniques or standardized protocols for targeted exams where dose is matched to indication/reason for exam; i.e. extremities or head) *Use of iterative reconstruction technique DLP: 688.16 mGy-cm FINDINGS: The ventricles and sulci are normal in size and configuration. No acute hemorrhage, mass effect or shift is evident. Soto-white differentiation is maintained. In the posterior fossa, the brainstem, cerebellum and fourth ventricle image normally. The orbits and calvarium are intact. Mucosal thickening is evident within the right sphenoid sinus. Polypoid mucosal thickening is present in both maxillary sinuses. Adenoidal tissues are mildly prominent. CT/CT head/brain wo IV con IMPRESSION: 1. Unremarkable noncontrast brain CT. No acute hemorrhage, mass effect or shift. 2. Bilateral maxillary polypoid mucosal thickening or polyp formation, and right sphenoid mucoperiosteal thickening. 3. Prominent adenoidal tissues.
[2023-06-20 12:06] VITALS: BP 122/69; PULSE 99; RESP 16; TEMP 36.7; O2SAT 97; BMI 40.4
--- NOTE | 2023-06-20 12:06 | ED.GENADULT ---
HPI - General Adult General Chief complaint: Headache Stated complaint: head pressure Time Seen by Provider: 06/20/23 14:34 Source: patient Mode of arrival: ambulatory Limitations: no limitations History of Present Illness HPI narrative: 23 year old male with no significant pmhx presents to the ED today for evaluation of head pressure x3 days. Endorses pressure that began around his forehead, now moving into his sinuses. Admits at times there are shooting sensations within his nose/ sinuses. Pain is worse with leaning his head forward. Admits to recent nasal congestion. Denies ever having these symptoms before. He has not been taking any OTC medications for this at home. Denies known sick contacts. Denies fever, chills, dizziness, vision changes, scalp tenderness, jaw claudication, sore throat, cough. Related Data Previous Rx's Medication Instructions Recorded sulfamethoxazole 800 1 tab PO BID 5 days #10 tabs 02/10/23 mg-trimethoprim 160 mg tablet (Bactrim DS) polymyxin B sulfate 10,000 1 drp ophthalmic (eye) Q3H 7 days 02/28/23 unit-trimethoprim 1 mg/mL eye #10 mL drops (Polytrim) amoxicillin 875 mg-potassium 1 tab PO BID 10 days #20 tabs 03/04/23 clavulanate 125 mg tablet amoxicillin 875 mg-potassium 1 tab PO BID 7 days #14 tabs 06/20/23 clavulanate 125 mg tablet Allergies Allergy/AdvReac Type Severity Reaction Status Date / Time No Known Allergies Allergy Verified 06/20/23 12:09 Review of Systems Review of Systems: Constitutional: No fever, chills, fatigue, night sweats, weight changes ENT/Mouth: No ear pain, hearing loss, +nasal congestion, +sinus pain, no rhinorrhea, sore throat Eyes: No eye pain, swelling, redness, vision changes, discharge Cardio: No chest pain, palpitations, SHAH, orthopnea, peripheral edema Pulm: No SOB, cough, sputum, wheezing, dyspnea, hemoptysis GI: No nausea, vomiting, hematemesis, abdominal pain, diarrhea, constipation, hematochezia, melena : No irregular bleeding, dysuria, frequency, urgency, hesitancy, hematuria, flank pain, urinary flow changes, urinary incontinence or retention MSK: No back pain, neck pain, joint pain, myalgias Skin: No lesions, rashes Neuro: No weakness, numbness, paresthesias, LOC, dizziness, headache, +head pressure Psych: No anxiety/panic, depression, SI/HI, AH/VH All other systems reviewed and are negative. [facility] Past Medical History Attestation statement: The following information was validated with the patient. Source: old records reviewed and nursing notes reviewed Medical History No known health problems Social History Social History Household Members: Family Alcohol intake: never Patient Tobacco Use Status: Never used Tobacco Tobacco use type: Cigarette Substance Use Type: Marijuana Advance Directives: No Advance Directives Information Provided: No Physical Exam ED Vital Signs: Vital Signs - 24 hr 06/20/23 12:06 06/20/23 16:39 Temperature 98.1 F 98 F Pulse Rate 99 88 Respiratory Rate 16 18 Blood Pressure 122/69 124/66 Pulse Oximetry 97 97 Oxygen Delivery Method Room Air Room Air BMI result Body Mass Index 40.4 Vital signs stable, afebrile. Const General: cooperative, healthy appearing, comfortable and no acute distress Orientation/consciousness: patient oriented x3 Limitations: no limitations HENMT Other: + pain/tenderness with percussion over frontal and maxillary sinuses. no crepitus or palpable deformity + no scalp tenderness of palpable temporal aa + no trismus Head: Yes normal to inspection, Yes No palpable skull fracture present, Yes normocephalic and Yes atraumatic Ears: hearing grossly normal bilaterally, external ears normal, TM's normal bilaterally, TM normal on the right, mastoids normal and no periauricular adenopathy General nose exam: Normal external nose present, Normal nares present, Normal nasal mucous membranes and turbinates present and Normal septum present Mouth: Normal oral and palatal mucosa present Throat: Yes posterior oropharynx normal Eyes General: appearance normal, both eyes and all related structures Pupils: Equal, round and reactive pupils present EOM: EOMs intact bilaterally Neck Neck: Yes normal visual inspection, Yes full ROM and Yes no lymphadenopathy Resp Effort & Inspection: normal respiratory effort Auscultation: clear to auscultation bilaterally Cardio Rate: regular rate Rhythm: regular rhythm Skin General skin exam: no rashes or lesions noted Neuro General: patient oriented x3 and gait normal Cranial nerves: Yes Equal, round and reactive pupils present and Yes Bilaterally intact EOM present Pupils: Normal pupillary reactivity/response: bilateral Course Course Course Narrative: RME- 23 year old male presents for evaluation of a headache for the last 3 days. Plan for viral swabs Reevaluation(s) Reevaluation #1: 3673-- patient has tested negative for covid, flu and rsv. given new onset head pressure and facial pain, CT head/brain/facial bones obtained which shows findings of sinusitis. i discussed work up results with patient. given he does not have proper PCP follow up, will treat for ABS with augmentin. Patient has remained stable throughout ED visit today. Discussed worrisome signs and symptoms and when to return to the ED. All questions answered at this time. Patient is agreeable with disposition and stable for discharge. Medications Administered Discontinued Medications Generic Name Dose Route Start Last Admin Trade Name Freq PRN Reason Stop Dose Admin Ketorolac Tromethamine 30 mg 06/20/23 16:26 06/20/23 16:44 Ketorolac Tromethamine 30 Mg/Ml Vial IM 06/20/23 16:27 30 mg ONCE ONE Administration Medical Decision Making Medical Decision Making [facility] Narrative: 23 year old male with no significant pmhx presents to the ED today for evaluation of head pressure x3 days. Vital signs stable, afebrile. He is nontoxic appearing and in NAD. perrla. pain/tenderness with percussion over frontal and maxillary sinuses. no crepitus or palpable deformity. exam nonfocal. Differential diagnosis includes viral syndrome, sinusitis, tension headache, migraine. Unlikely intracranial mass, pseudotumor cerebri, CVA/TIA, GCA, trigeminal neuralgia. Serology ordered in triage. Plan for CT head/brain/facial bones, pain control, and re-evaluation. Differential Diagnosis Differential Diagnoses: The differential diagnosis associated with the presentation includes as above. Admission/Observation Not indicated. Lab Data [facility] Lab Attestation statement: I reviewed the patient's lab results. as above. Labs: Lab Results 06/20/23 Range/Units 12:46 Influenza Type A (PCR) NEGATIVE (Negative) Influenza Type B (PCR) NEGATIVE (Negative) RSV RNA Qual (PCR) NEGATIVE (Negative) SARS-CoV-2 RNA (RT-PCR) NEGATIVE (Negative) Independent Interpretation I performed an independent interpretation of an: CT Scan Interpretation: I have personally reviewed ct head/brain and ct facial bones and agree with radiologist's interpretation. Radiology Impression Discussion of test interpretation with radiology: I have reviewed the radiologist's reading. Radiologist Impression: CT facial bones wo IV con IMPRESSION: There are nasal sinus disease with small retention cysts or polyps in each maxillary sinus. Moderate thickening in the right sphenoid sinus. No fluid level demonstrated Thickening of the lymphoid ring in the oropharynx and including the adenoids. CT head/brain wo IV con IMPRESSION: 1. Unremarkable noncontrast brain CT. No acute hemorrhage, mass effect or shift. 2. Bilateral maxillary polypoid mucosal thickening or polyp formation, and right sphenoid mucoperiosteal thickening. 3. Prominent adenoidal tissues. Prescription Management I considered prescription management with: Antibiotic (augmentin) Social Determinants Patient?s care significantly limited by Social Determinants of Health including: Other Social Determinant of Health Discharge Plan Discharge Clinical Impression: Sinusitis with nasal polyps Patient Disposition: Home, Self-Care Instructions: Sinusitis (ED), Nasal Polyps (ED) Additional Instructions: You have tested negative for influenza, RSV, COVID. The CT scan of your head/brain is normal. The CT scan of your facial bones demonstrates findings consistent with sinus infection within your sphenoid and maxillary sinuses. This requires treatment with antibiotics. Amoxicillin is an antibiotic that has been sent to your pharmacy. Take this two times daily for next 7 days to treat sinus infection. Do not stop taking this early or skip any doses of this may cause infection to return or worsen. On amoxicillin-clavulanate, softer bowel movements are to be expected. Call your provider if you move your bowels more than 4 times a day, your bowel movements are almost all liquid, or you get a rash.? You may take Tylenol and ibuprofen as needed for pain/discomfort. Please follow-up with your primary care provider as needed. You have also been provided with a referral to an ear nose and throat (ENT) doctor. For new or worsening symptoms, please return to the ED. In the case of an emergency call 911. Prescriptions: New amoxicillin-pot clavulanate 875-125 mg tablet 1 tab PO BID 7 Days Qty: 14 0RF No Action polymyxin B sulf-trimethoprim [Polytrim] 10,000 unit- 1 mg/mL drops 1 drp ophthalmic (eye) Q3H 7 Days Qty: 10 0RF Rx Instructions: while awake; do not exceed 6 doses in 24 hours amoxicillin-pot clavulanate 875-125 mg tablet 1 tab PO BID 10 Days Qty: 20 0RF sulfamethoxazole-trimethoprim [Bactrim DS] 800-160 mg tablet 1 tab PO BID 5 Days Qty: 10 0RF Referrals: Bao Ocampo [Physician] - Interventions: ED Discharge Assessment Last Done: 06/20/23 16:44 Discharge Date/Time: 06/20/23 16:46
[2023-06-20 14:01] LABS: Influenza A PCR NEGATIVE (Negative); Influenza B PCR NEGATIVE (Negative); Resp Syncy Virus RNA Qual PCR NEGATIVE (Negative); SARS COV2 PCR INHOUSE NEGATIVE (Negative)
[2023-06-20 16:39] VITALS: BP 124/66; PULSE 88; RESP 18; TEMP 36.6; O2SAT 97
[2023-06-20] MEDS: Ketorolac Tromethamine 30 MG/ML VIAL IM (16:44)
== END 2023-06-20 16:46 | disposition home or self-care (01) ==
PROVIDERS: Physician Assistant; Emergency Provider Emergency Medicine Emergency Medical Services
DX: J32.9 Chronic sinusitis, unspecified (principal); J33.8 Other polyp of sinus; R51.9 Headache, unspecified; Z11.52 Encounter for screening for COVID-19; Z20.828 Contact with and (suspected) exposure to other viral communicable diseases
CPT/HCPCS: 0241U; 70450; 70486; 96372; 99283; 99284; J1885

== ENCOUNTER 2023-08-28 12:28 | Emergency (ER) | payer OTHER, SELFPAY ==
--- NOTE | 2023-08-28 12:34 | ECG_ITS ---
Test Reason : chest pain Blood Pressure : / mmHG Vent. Rate : 091 BPM Atrial Rate : 091 BPM P-R Int : 156 ms QRS Dur : 084 ms QT Int : 340 ms P-R-T Axes : 050 065 039 degrees QTc Int : 418 ms Normal sinus rhythm Normal ECG No previous ECGs available Referred By: Bessy Thronton Electronically Signed By:Anthony Akers
[2023-08-28 12:39] VITALS: BP 121/68; PULSE 87; RESP 18; TEMP 37.2; O2SAT 99; BMI 38.5
--- NOTE | 2023-08-28 12:39 | ED.GENADULT ---
HPI - General Adult General Chief complaint: Upper Respiratory Symptoms Stated complaint: Chest tightness, headache Time Seen by Provider: 08/28/23 12:55 Source: patient Mode of arrival: ambulatory Limitations: no limitations History of Present Illness HPI narrative: patient is a 23-year-old male Who presents emergency department for evaluation of subjective fever, chills, intermittent headache, tightness in the anterior chest and nonproductive cough, nausea without vomiting diarrhea abdominal pain or symptoms. Symptom onset x2 days. Reports his daughters have been ill recently with similar symptoms. He had to leave work early today due to his symptoms. He has requesting a work note and plans to return to work tomorrow. Related Data Previous Rx's ?Medication ?Instructions ?Recorded sulfamethoxazole 800 1 tab PO BID 5 days #10 tabs 02/10/23 mg-trimethoprim 160 mg tablet (Bactrim DS) polymyxin B sulfate 10,000 1 drp ophthalmic (eye) Q3H 7 days 02/28/23 unit-trimethoprim 1 mg/mL eye #10 mL drops (Polytrim) amoxicillin 875 mg-potassium 1 tab PO BID 10 days #20 tabs 03/04/23 clavulanate 125 mg tablet amoxicillin 875 mg-potassium 1 tab PO BID 7 days #14 tabs 06/20/23 clavulanate 125 mg tablet guaifenesin 1,200 mg tablet, 1,200 mg PO BID #14 tabs 08/28/23 extended release 12 hr Allergies Allergy/AdvReac Type Severity Reaction Status Date / Time No Known Allergies Allergy Verified 08/28/23 12:40 Review of Systems Review of Systems: Yes all other systems are reviewed and are negative [facility] Past Medical History Attestation statement: The following information was validated with the patient. Source: old records reviewed Medical History No known health problems Social History Social History Household Members: Family Alcohol intake: never Patient Tobacco Use Status: Never used Tobacco Tobacco use type: Cigarette Substance Use Type: Marijuana Advance Directives: No Advance Directives Information Provided: Yes Physical Exam ED Vital Signs: Vital Signs - 24 hr 08/28/23 12:39 Temperature 98.9 F Pulse Rate 87 Respiratory Rate 18 Blood Pressure 121/68 Pulse Oximetry 99 Oxygen Delivery Method Room Air BMI result Body Mass Index 38.5 Appearance: Alert.?Oriented to person, place and time. No acute distress.?Normal affect. Eyes: Pupils equal, round and reactive to light.? EOMI. No nystagmus. ENT: Pharynx normal.? Uvula midline. No trismus. No drooling. TM normal bilaterally.? Neck: Normal inspection.? Neck supple.?? full range of motion. No cervical adenopathy. No nuchal rigidity CVS: Heart sounds normal. Normal heart rate and rhythm.? Pulses normal.?? Respiratory: No respiratory distress.? Lung sounds clear to auscultation bilaterally?? Abdomen: Soft and non-tender. Normoactive bowel sounds. Skin: Skin warm and dry.? Normal skin color.? Extremities: No lower extremity edema.? Neuro: Moves all extremities spontaneously. Sensation intact bilaterally. Ambulates with normal steady gait. Course Course Course Narrative: This is a rapid medical exam performed by Pierce Thornton NP: Additional HPI, ROS, PE not included below will be deferred to primary provider. Patient is a 23-year-old male presenting to the ED with complaint of fever, chills yesterday, headache and chest tightness. Mild nausea without vomiting or diarrhea. Plan: viral and strep swabs Medical Decision Making Medical Decision Making [facility] Narrative: Patient is a 23-year-old male, presenting for evaluation of upper respiratory symptoms. COVID-19 /influenza/RSV testing negative. Strep a testing negative. At this time history and physical exam not consistent with ACS/PE/pneumonia. Well-appearing, nontoxic, afebrile, no tachycardia or tachypnea/hypoxia. Speaking clear full sentences, ambulatory with steady gait. Suspect viral upper respiratory infection is likely etiology for symptoms. Discussed conservative treatment including rest, hydration, Tylenol/ibuprofen as needed for fever and body aches, saline nasal spray, humidifier, [id number] cold medication. Advised to follow-up with primary care provider as needed, discussed reasons to return back to the emergency department. All questions were answered. Patient discharged home in stable condition. Provided with a return to work/school note. Differential Diagnosis Differential Diagnoses: The differential diagnosis associated with the presentation includes ( See narrative above) Admission/Observation Consideration of admission/observation: Escalation of care including admission/observation considered ( see narrative above) Lab Data MDM Lab Attestation statement: I reviewed the patient's lab results. ( see narrative above) Labs: Lab Results 08/28/23 Range/Units 13:00 Influenza Type A (PCR) NEGATIVE (Negative) Influenza Type B (PCR) NEGATIVE (Negative) RSV RNA Qual (PCR) NEGATIVE (Negative) SARS-CoV-2 RNA (RT-PCR) NEGATIVE (Negative) S. pyogenes GrpA BERNICE Negative (Negative) Independent Interpretation I performed an independent interpretation of an: EKG Interpretation: Rate: Ninety-one Rhythm:? normal sinus rhythm [place]:? normal Normal P waves.? Normal MARYBEL.?? Normal QRS complex.?? ST T wave :?? no ST elevation, no ST depression, no T-wave inversion qTC: 418 prior studies:? no prior available for review The study has been interpreted contemporaneously by me. Tests considered The following testing was considered but not selected: CXR deferred, LS CTA, no hypoxia or tachypnea. Prescription Management I considered prescription management with: Pain Medication ( acetaminophen/ibuprofen) and Antibiotic ( Suspect viral etiology) Discharge Plan Discharge Clinical Impression: Upper respiratory infection Patient Disposition: Home, Self-Care Instructions: Upper Respiratory Infection (ED) Additional Instructions: Be sure to rest, stay well hydrated drinking plenty of fluids, eat small frequent meals. Tylenol/ibuprofen can be used as needed for fever/pain. Qsro-aqm-ipoxmke cold medications may be helpful as well for symptoms. Saline nasal spray, humidifier may be helpful for nasal congestion. You may return to the emergency department with any new or worsening symptoms or concerns. Follow-up with your primary care provider as needed. Should remain out of school/ work until symptoms have resolved and have been without a fever for 24 hours without the use of Tylenol or ibuprofen. Prescriptions: New guaifenesin 1,200 mg tablet extended release 12hr 1,200 mg PO BID Qty: 14 0RF No Action polymyxin B sulf-trimethoprim [Polytrim] 10,000 unit- 1 mg/mL drops 1 drp ophthalmic (eye) Q3H 7 Days Qty: 10 0RF Rx Instructions: while awake; do not exceed 6 doses in 24 hours amoxicillin-pot clavulanate 875-125 mg tablet 1 tab PO BID 10 Days Qty: 20 0RF amoxicillin-pot clavulanate 875-125 mg tablet 1 tab PO BID 7 Days Qty: 14 0RF sulfamethoxazole-trimethoprim [Bactrim DS] 800-160 mg tablet 1 tab PO BID 5 Days Qty: 10 0RF Referrals: Physician,Unknown J [Primary Care Provider] - Print Language: Uzbek
[2023-08-28 13:21] LABS: IDNOW Serial# 08D9AD1C; Strep A Nucleic Acid Negative (Negative)
[2023-08-28 13:45] LABS: Influenza A PCR NEGATIVE (Negative); Influenza B PCR NEGATIVE (Negative); Resp Syncy Virus RNA Qual PCR NEGATIVE (Negative); SARS COV2 PCR INHOUSE NEGATIVE (Negative)
--- NOTE | 2023-08-28 14:25 | PC.NURSE ---
Evaluated by PA, cleared for ma home.
[2023-08-28 14:29] VITALS: BP 121/68; PULSE 87; RESP 18; TEMP 37.2; O2SAT 99
== END 2023-08-28 14:30 | disposition home or self-care (01) ==
PROVIDERS: Registered Nurse Emergency; Emergency Provider Student in an Organized Health Care Education/Training Program
DX: J06.9 Acute upper respiratory infection, unspecified (principal); R07.89 Other chest pain; R51.9 Headache, unspecified; Z11.52 Encounter for screening for COVID-19; Z20.822 Contact with and (suspected) exposure to COVID-19
CPT/HCPCS: 0241U; 87651; 93005; 99283

== ENCOUNTER → 2023-08-28 12:34 | Outpatient (BNV) | payer OTHER, SELFPAY | PROVIDERS: Emergency Provider Student in an Organized Health Care Education/Training Program; Visit Provider Internal Medicine Cardiovascular Disease | DX: R07.9 Chest pain, unspecified (principal) | CPT/HCPCS: 93010 ==

== ENCOUNTER 2023-10-10 12:04 | Emergency (ER) | payer OTHER, SELFPAY ==
--- NOTE | ~2023-10-10 | XR_ITS ---
EXAMINATION: XR ANKLE, RIGHT CLINICAL INFORMATION: Pain COMPARISON: None available. TECHNIQUE: AP, lateral, and mortise views of the right ankle. FINDINGS: No fracture. Alignment is anatomic. No erosions. Joint spaces are maintained. Soft tissues are normal. XR/XR ankle RT 2V IMPRESSION: Normal right ankle.
[2023-10-10 12:08] VITALS: BP 122/74; PULSE 81; RESP 19; TEMP 36.6; O2SAT 99; BMI 33.5
--- NOTE | 2023-10-10 12:08 | ED.LOWEXIN ---
HPI - Extremity Injury (Lower) General Chief Complaint: Extremity Injury, Lower Stated Complaint: Pain R ankle no injury Time Seen by Provider: 10/10/23 12:10 Source: patient Mode of arrival: ambulatory Limitations: no limitations History of Present Illness ED Provider: Kathy Lopez APRN HPI Narrative: 23-year-old male who has no known medical history presents to the ER with complaints of atraumatic right ankle pain for 2 days. Patient reports he noticed some slight aching and discomfort yesterday but throughout the night his pain became much more severe. It is worsened with movement of the extremity and weight-bearing. Denies any injury or trauma. No associated redness, swelling, fevers, chills, numbness or tingling. Patient reports that was told previously that he was borderline diabetic but this was years ago and he does not currently have a primary care doctor and has not followed up for several years. Related Data Previous Rx's ?Medication ?Instructions ?Recorded sulfamethoxazole 800 1 tab PO BID 5 days #10 tabs 02/10/23 mg-trimethoprim 160 mg tablet (Bactrim DS) polymyxin B sulfate 10,000 1 drp ophthalmic (eye) Q3H 7 days 02/28/23 unit-trimethoprim 1 mg/mL eye #10 mL drops (Polytrim) amoxicillin 875 mg-potassium 1 tab PO BID 10 days #20 tabs 03/04/23 clavulanate 125 mg tablet amoxicillin 875 mg-potassium 1 tab PO BID 7 days #14 tabs 06/20/23 clavulanate 125 mg tablet guaifenesin 1,200 mg tablet, 1,200 mg PO BID #14 tabs 08/28/23 extended release 12 hr ibuprofen 600 mg tablet 600 mg PO Q6H PRN pain #30 tabs 10/10/23 prednisone 20 mg tablet 40 mg (2 x 20 mg) PO DAILY #10 tabs 10/10/23 Allergies Allergy/AdvReac Type Severity Reaction Status Date / Time No Known Allergies Allergy Verified 10/10/23 12:09 Review of Systems Review of Systems: Yes all other systems are reviewed and are negative Constitutional: Constitutional: Reports no additional constitutional complaints, Denies body ache(s), Denies chills, Denies fever(s), Denies headache(s) and Denies weakness Eyes: Eyes: Reports no additional eye complaints and Denies change in vision ENT: Reports system reviewed and no additional complaints, except as documented, Denies dizziness, Denies headache(s), Denies nasal congestion, Denies nasal discharge and Denies neck pain Cardiovascular: Cardiovascular: Reports no additional cardiovascular complaints, Denies chest pain, Denies leg edema and Denies dyspnea Respiratory: Respiratory: Reports no additional respiratory complaints, Denies cough and Denies dyspnea Gastrointestinal: Gastrointestinal: Reports no additional gastrointestinal complaints, Denies abdominal pain, Denies diarrhea, Denies nausea and Denies vomiting Genitourinary: Genitourinary: Denies urinary incontinence Musculoskeletal: Musculoskeletal: Reports no additional musculoskeletal complaints, Denies back pain, Reports arthralgias, Denies joint swelling, Denies limited range of motion, Denies neck pain, Denies numbness and Denies tingling Integumentary/Breasts: Skin/Breast: Reports system reviewed and no additional complaints, except as docu and Denies rash Neurologic: Reports system reviewed and no additional complaints, except as documented, Denies Abnormal speech present, Denies dizziness, Denies headache(s), Denies numbness, Denies tingling and Denies weakness [facility] Past Medical History Attestation statement: The following information was validated with the patient. Source: old records reviewed and nursing notes reviewed Medical History No known health problems Social History Social History Household Members: Family Alcohol intake: never Patient Tobacco Use Status: Never used Tobacco Tobacco use type: Cigarette Substance Use Type: Marijuana Advance Directives: No Advance Directives Information Provided: No Physical Exam Vital Signs: Vital Signs: Last Vital Signs Temp 98 F 10/10/23 12:08 Pulse 81 10/10/23 12:08 Resp 19 10/10/23 12:08 BP 122/74 10/10/23 12:08 Pulse Ox 99 10/10/23 12:08 O2 Del Method Room Air 10/10/23 12:08 BMI result Body Mass Index 33.5 Const: General: cooperative, healthy appearing, comfortable and no acute distress Orientation/consciousness: patient oriented x3 Limitations: no limitations HEENT: Head: Yes normal to inspection Ears: hearing grossly normal bilaterally General nose exam: Normal external nose present Face and sinus: Yes normal facial exam Mouth: Normal oral and palatal mucosa present Throat: Yes posterior oropharynx normal Eyes: General: appearance normal, both eyes and all related structures Pupils: Equal, round and reactive pupils present Neck: Neck: Yes normal visual inspection Chest: Chest palpation & inspection: normal inspection of the chest Resp: Effort & Inspection: normal respiratory effort Auscultation: clear to auscultation bilaterally Cardio: Rate: regular rate Rhythm: regular rhythm Peripheral pulses: Peripheral pulses 2+ throughout GI: Inspection: Yes normal to inspection Palpation (GI): Soft to palpation and nontender Auscultation: normal bowel sounds Back/Spine/Pelvis: Thoracic/Lumbar Spine: thoracic and lumbar spine normal to inspection Skin: General skin exam: no rashes or lesions noted Neuro: General: patient oriented x3, no focal motor deficits and normal sensation to monofilament Cranial nerves: Yes Equal, round and reactive pupils present Cognition (Neuro): normal cognition Speech: No Abnormal speech present Gait exam (Neuro): Normal gait present Motor exam (neuro): 5/5 motor strength present throughout Extrem: Other: 2+ DP and PT pulses normal sensation no redness, warmth or swelling noted pain on palpation over the medial ankle and medial foot with no crepitus or deformity. No ligamental laxity. No pain noted proximally. There is pain with flexion and extension of the ankle. General: Yes normal to inspection Course Course Course Narrative: This is a rapid medical exam performed by Pierce Thornton NP: Additional HPI, ROS, PE not included below will be deferred to primary provider. Patient is a 23-year-old male presenting to the ED with complaint of atraumatic right ankle pain which woke him in the middle of the night. Plan: x-ray, uric acid Reevaluation(s) Reevaluation #1: x-ray shows no abnormality. Uric acid is mildly elevated. History of present illness seems more like a gout. Therefore the patient will be treated with NSAIDs, prednisone course with recommendations to follow up outpatient with a primary care doctor. We did discuss triggers of gout. Did review worrisome signs and symptoms of when to return to the emergency room. Comfortable plan for discharge home. Medications Administered Discontinued Medications Generic Name Dose Route Start Last Admin Trade Name Freq PRN Reason Stop Dose Admin Ibuprofen 600 mg 10/10/23 12:15 10/10/23 12:21 Ibuprofen 600 Mg Tablet PO 10/10/23 12:16 600 mg ONCE ONE Administration Medical Decision Making Medical Decision Making [facility] Narrative: 23-year-old male who has no known medical history presents to the ER with complaints of atraumatic right ankle pain for 2 days. Patient reports he noticed some slight aching and discomfort yesterday but throughout the night his pain became much more severe. It is worsened with movement of the extremity and weight-bearing. Denies any injury or trauma. No associated redness, swelling, fevers, chills, numbness or tingling. Patient reports that was told previously that he was borderline diabetic but this was years ago and he does not currently have a primary care doctor and has not followed up for several years. PE- 2+ DP and PT pulses normal sensation no redness, warmth or swelling noted pain on palpation over the medial ankle and medial foot with no crepitus or deformity. No ligamental laxity. No pain noted proximally. There is pain with flexion and extension of the ankle. Will obtain labs, x-ray Differential Diagnosis Differential Diagnoses: The differential diagnosis associated with the presentation includes strain, sprain, tendinitis, arthritis, gout low suspicion for fracture, dislocation, septic arthritis, osteomyelitis, cellulitis, DVT Admission/Observation Consideration of admission/observation: Escalation of care including admission/observation considered low suspicion for complex fracture, dislocation or vascular injury requiring advanced imaging, urgent orthopedic consultation and or admission or hospitalization Lab Data [facility] Lab Attestation statement: I reviewed the patient's lab results. 10/10/23 12:33 10/10/23 12:33 Labs: Lab Results 10/10/23 Range/Units 12:33 WBC 11.3 H (4.8-10.8) X10*3/uL RBC 5.14 (4.60-5.80) X10*6/uL Hgb 15.8 (14.0-18.0) g/dl Hct 44.8 (42.0-52.0) % MCV 87.2 (80.0-98.0) fL MCH 30.7 (27.0-33.0) pg MCHC 35.3 (31.0-36.0) g/dl RDW 12.2 (11.0-16.0) % Plt Count 270 (160-400) X10*3/uL MPV 10.9 (9.4-12.4) fL Immature Gran % (Auto) 0.4 (0.0-0.4) % Neut % (Auto) 66.0 (45-73) % Lymph % (Auto) 25.1 (20-40) % Yell % (Auto) 5.3 (2-11) % Eos % (Auto) 2.8 (0-4) % Baso % (Auto) 0.4 (0-2) % Lymph # (Auto) 2.8 (1.2-4.9) X10*3/uL Yell # (Auto) 0.6 (0.1-1.2) X10*3/uL Eos # (Auto) 0.3 (0.0-0.4) X10*3/uL Baso # (Auto) 0.1 (0.0-0.2) X10*3/uL Abs Immat Gran (auto) 0.04 H (0.00-0.03) X10*3/uL Absolute Neuts (auto) 7.5 (2.0-8.3) x10*3/uL Absolute Nucleated RBC 0.000 (0.0-0.012) X10*3/uL Nucleated RBC % (auto) 0.0 (0.0-0.2) /100WBC Sodium 139 (135-145) mmol/L Potassium 4.4 (3.3-5.1) mmol/L Chloride 106 (96-108) mmol/L Carbon Dioxide 25 (22-29) mmol/L Anion Gap 12 (12-20) BUN 15 (9-16) mg/dL Creatinine 0.81 (0.5-1.4) mg/dL Estim Creat Clear Calc 161.1 Estimated GFR > 60 Random Glucose 97 (60-115) mg/dL Uric Acid 8.1 H (3.4-7.0) mg/dL Calcium 10.0 D (8.4-10.2) mg/dL C-Reactive Protein 0.27 (< or = 0.50) mg/dL Independent Interpretation I performed an independent interpretation of an: Plain X-Ray Interpretation: I independently viewed the x-ray and agree with the radiology report Radiology Impression Discussion of test interpretation with radiology: I have reviewed the radiologist's reading. Radiologist Impression: [address] [address] XRay Report Signed Patient: Jimmy Durán MR#: [id number] : 2000 Acct:[id number] Age/Sex: 23 / M ADM Date: 10/10/23 Loc: HO.ED Attending Dr: Ordering Physician: Bessy Thornton NP Date of Service: 10/10/23 Procedure(s): XR ankle RT 2V Accession Number(s): [id number] cc: Physician,None ; Bessy Thornton HIRE CAR DRIVER~ EXAMINATION: XR ANKLE, RIGHT CLINICAL INFORMATION: Pain COMPARISON: None available. TECHNIQUE: AP, lateral, and mortise views of the right ankle. FINDINGS: No fracture. Alignment is anatomic. No erosions. Joint spaces are maintained. Soft tissues are normal. XR/XR ankle RT 2V IMPRESSION: Normal right ankle. Tests considered The following testing was considered but not selected: low suspicion for complex fracture, dislocation or vascular injury requiring advanced imaging Prescription Management I considered prescription management with: Pain Medication and Antibiotic Procedures Orthopedic Splinting/Casting Injury #1: Side: right Lower Extremity Injury Location: ankle Lower Extremity Immobilizer: Sumanth wrap Other Orthopedic Equipment: crutches Discharge Plan Discharge Clinical Impression: Gout Patient Disposition: Home, Self-Care Instructions: Low Purine Diet (ED), Gout (ED) Additional Instructions: These establish a primary care doctor Apply ice, elevation, rest the ankle and foot. Your x-ray show no bony abnormality Your labs show a mildly elevated uric acid which can be seen in gout. Otherwise your labs are normal. See the instructions on dietary modifications Use the sumanth wrap and crutches as needed for pain Prescriptions: New prednisone 20 mg tablet 40 mg PO DAILY Qty: 10 0RF ibuprofen 600 mg tablet 600 mg PO Q6H PRN (Reason: pain) Qty: 30 0RF No Action guaifenesin 1,200 mg tablet extended release 12hr 1,200 mg PO BID Qty: 14 0RF polymyxin B sulf-trimethoprim [Polytrim] 10,000 unit- 1 mg/mL drops 1 drp ophthalmic (eye) Q3H 7 Days Qty: 10 0RF Rx Instructions: while awake; do not exceed 6 doses in 24 hours amoxicillin-pot clavulanate 875-125 mg tablet 1 tab PO BID 10 Days Qty: 20 0RF amoxicillin-pot clavulanate 875-125 mg tablet 1 tab PO BID 7 Days Qty: 14 0RF sulfamethoxazole-trimethoprim [Bactrim DS] 800-160 mg tablet 1 tab PO BID 5 Days Qty: 10 0RF Referrals: Physician,None [Primary Care Provider] - 10 days Stand Alone Forms: Work/School Release Print Language: Micronesian
[2023-10-10] MEDS: Ibuprofen 600 MG TABLET PO (12:21)
[2023-10-10 12:36] LABS: MANUAL DIFF FLAG NO
[2023-10-10 12:39] LABS: Basophils Absolute Auto 0.1 X10*3/uL (0.0-0.2); Basophils Percent Auto 0.4 % (0-2); Eosinophils Absolute Auto 0.3 X10*3/uL (0.0-0.4); Eosinophils Percent Auto 2.8 % (0-4); Hematocrit 44.8 % (42.0-52.0); Hemoglobin 15.8 g/dl (14.0-18.0); Imm Gran Abs Auto 0.04 X10*3/uL (0.00-0.03); Imm Gran Pct Auto 0.4 % (0.0-0.4); Lymphocytes Absolute Auto 2.8 X10*3/uL (1.2-4.9); Lymphocytes Percent Auto 25.1 % (20-40); Mean Corpuscular HGB Conc 35.3 g/dl (31.0-36.0); Mean Corpuscular Hemoglobin 30.7 pg (27.0-33.0); Mean Corpuscular Volume 87.2 fL (80.0-98.0); Mean Platelet Volume 10.9 fL (9.4-12.4); Monocytes Absolute Auto 0.6 X10*3/uL (0.1-1.2); Monocytes Percent Auto 5.3 % (2-11); Neutrophils Absolute Auto 7.5 x10*3/uL (2.0-8.3); Platelet Count 270 X10*3/uL (160-400); Red Blood Count 5.14 X10*6/uL (4.60-5.80); Red Cell Distribution Width 12.2 % (11.0-16.0); White Blood Count 11.3 X10*3/uL (4.8-10.8)
[2023-10-10 12:56] LABS: Anion Gap 12 (12-20); Blood Urea Nitrogen 15 mg/dL (9-16); C Reactive Protein 0.27 mg/dL (< or = 0.50); Carbon Dioxide 25 mmol/L (22-29); Chloride 106 mmol/L (96-108); Creatinine Clr Calc Pharmacy 161.1; Estimated Glomerular Filt Rate > 60; Glucose Random 97 mg/dL (60-115); Potassium 4.4 mmol/L (3.3-5.1); Sodium 139 mmol/L (135-145); Uric Acid 8.1 mg/dL (3.4-7.0)
[2023-10-10 14:49] VITALS: BP 122/74; PULSE 81; RESP 19; TEMP 36.6; O2SAT 99
== END 2023-10-10 14:49 | disposition home or self-care (01) ==
PROVIDERS: Nurse Practitioner Family; Registered Nurse Emergency; Emergency Provider Emergency Medicine
DX: M10.9 Gout, unspecified (principal); M25.571 Pain in right ankle and joints of right foot
CPT/HCPCS: 36415; 73600; 80048; 84550; 85025; 86140; 99283

== ENCOUNTER 2023-10-24 11:05 | Emergency (ER) | payer OTHER, SELFPAY ==
[2023-10-24 11:29] VITALS: BP 127/73; PULSE 74; RESP 16; TEMP 36.8; O2SAT 95; BMI 35.0
--- NOTE | 2023-10-24 11:31 | ED.GENADULT ---
HPI - General Adult General Chief complaint: Upper Respiratory Symptoms Stated complaint: headache stuffy nose eye pain weak Time Seen by Provider: 10/24/23 11:44 Source: patient and RN notes reviewed Mode of arrival: ambulatory Limitations: no limitations History of Present Illness ED Provider: Delicia Mcdonald PA-C [facility] narrative: This is a 23-year-old male, with no known medical problems, who presents emergency department with complaints of congestion, subjective fevers, body aches, headache, slight cough times 2 days. Patient states that his daughters have been sick over the last several days. He denies taking any medications at home to treat his current symptoms. He states he has had decreased appetite due to his symptoms. Denies any chest pain, shortness breath, severe abdominal pain, nausea, vomiting or diarrhea. No other complaints or concerns at this time. MD complaint: Congestion Onset (ago): day(s) Relieving factors: none Exacerbating factors: none Associated symptoms: denies other symptoms Treatments prior to arrival: none Related Data Previous Rx's ?Medication ?Instructions ?Recorded sulfamethoxazole 800 1 tab PO BID 5 days #10 tabs 02/10/23 mg-trimethoprim 160 mg tablet (Bactrim DS) polymyxin B sulfate 10,000 1 drp ophthalmic (eye) Q3H 7 days 02/28/23 unit-trimethoprim 1 mg/mL eye #10 mL drops (Polytrim) amoxicillin 875 mg-potassium 1 tab PO BID 10 days #20 tabs 03/04/23 clavulanate 125 mg tablet amoxicillin 875 mg-potassium 1 tab PO BID 7 days #14 tabs 06/20/23 clavulanate 125 mg tablet guaifenesin 1,200 mg tablet, 1,200 mg PO BID #14 tabs 08/28/23 extended release 12 hr ibuprofen 600 mg tablet 600 mg PO Q6H PRN pain #30 tabs 10/10/23 prednisone 20 mg tablet 40 mg (2 x 20 mg) PO DAILY #10 tabs 10/10/23 Allergies Allergy/AdvReac Type Severity Reaction Status Date / Time No Known Allergies Allergy Verified 10/24/23 11:31 Review of Systems Review of Systems: Yes all other systems are reviewed and are negative Constitutional: Constitutional: Reports as per [facility] Past Medical History Medical History No known health problems Social History Social History Household Members: Family Alcohol intake: never Patient Tobacco Use Status: Never used Tobacco Tobacco use type: Cigarette Substance Use Type: Marijuana Advance Directives: No Advance Directives Information Provided: No Do you have a plan to hurt others: No Plan Physical Exam ED Vital Signs: Vital Signs - 24 hr 10/24/23 11:29 10/24/23 12:04 Temperature 98.2 F 97.7 F Pulse Rate 74 69 Respiratory Rate 16 14 Blood Pressure 127/73 113/76 Pulse Oximetry 95 98 Oxygen Delivery Method Room Air Room Air BMI result Body Mass Index 35.0 Const General: cooperative, comfortable and no acute distress Orientation/consciousness: patient oriented x3 Limitations: no limitations HENMT Head: Yes normal to inspection, Yes normocephalic and Yes atraumatic Ears: hearing grossly normal bilaterally and TM's normal bilaterally General nose exam: Normal external nose present Face and sinus: Yes normal facial exam Mouth: Normal oral and palatal mucosa present, oropharynx normal and moist mucous membranes Throat: Yes posterior oropharynx normal Eyes General: appearance normal, both eyes and all related structures Eyelids: Yes eyelids normal Conjunctivae: conjunctivae normal Sclerae: sclerae normal Pupils: Equal, round and reactive pupils present EOM: EOMs intact bilaterally Neck Neck: Yes normal visual inspection, Yes full ROM and Yes no lymphadenopathy Lymphatic: no lymphadenopathy noted Chest Chest palpation & inspection: normal inspection of the chest Resp Effort & Inspection: normal respiratory effort and able to speak in complete sentences Auscultation: clear to auscultation bilaterally, no crackles, no rales, no rhonchi and no wheezes Cardio Rate: regular rate Rhythm: regular rhythm Heart sounds: S1 normal heart sound present and S2 normal heart sound present GI Other: Abdomen is soft, nontender, nondistended Inspection: Yes normal to inspection Skin General skin exam: no rashes or lesions noted Trauma: no lacerations or abrasions Wounds: no wounds Neuro General: patient oriented x3 and moves all extremities Cranial nerves: Yes Equal, round and reactive pupils present Extrem General: Yes normal to inspection Right upper extremity: normal to inspection Left upper extremity: normal to inspection Right lower extremity: normal to inspection Left lower extremity: normal to inspection Course Course Course Narrative: This is a Rapid Medical Examination (RME) performed by Liliana Mora PA-C in triage. Full HPI, ROS, assessment and treatment plan per primary provider in the Main ED. 23 yo male here for eval of headache, nasal congestion, and subjective fevers x24 hours. daughters were recently ill with bronchitis. lungs are cta b/l. afebrile. Plan: viral and strep swabs ordered Reevaluation(s) Reevaluation #1: Swabs negative, likely viral in nature. Patient feeling better after receiving Tylenol, discussed workup with patient and return precautions. He understands and agrees with plan. Patient stable for discharge. Time: 13:11 Medications Administered Discontinued Medications Generic Name Dose Route Start Last Admin Trade Name Freq PRN Reason Stop Dose Admin Acetaminophen 975 mg 10/24/23 12:26 10/24/23 12:30 Acetaminophen 325 Mg Tablet PO 10/24/23 12:27 975 mg ONCE ONE Administration Medical Decision Making Medical Decision Making MDM Narrative: This is a 23-year-old male, with no known medical problems, who presents to the emergency department with complaints of congestion, subjective fevers, and body aches x3 days. On arrival, vital signs within normal limits. Lungs are clear to auscultation bilaterally. Physical examination normal, differential diagnoses include viral URI, flu, RSV, COVID. Less likely pneumonia. Plan: Viral swabs, Tylenol Differential Diagnosis Differential Diagnoses: The differential diagnosis associated with the presentation includes See above Admission/Observation Consideration of admission/observation: Escalation of care including admission/observation considered Lab Data MDM Lab Attestation statement: I reviewed the patient's lab results. Negative viral swabs Labs: Lab Results 10/24/23 Range/Units 11:38 Influenza Type A (PCR) NEGATIVE (Negative) Influenza Type B (PCR) NEGATIVE (Negative) RSV RNA Qual (PCR) NEGATIVE (Negative) SARS-CoV-2 RNA (RT-PCR) NEGATIVE (Negative) S. pyogenes GrpA BERNICE Negative (Negative) Discharge Plan Discharge Clinical Impression: Upper respiratory infection, viral Patient Disposition: Home, Self-Care Instructions: Upper Respiratory Infection (ED), Viral Syndrome (ED) Additional Instructions: You were seen in the emergency department today. You tested negative for flu, RSV, COVID and strep. You likely have a virus which is causing you to have the symptoms. It is very important for you to drink plenty of fluids get plenty of rest. Alternate between ibuprofen and Tylenol as needed for your symptoms. If any new or worsening symptoms occur including but not limited to chest pain, shortness of breath, please return for re-evaluation. Prescriptions: No Action guaifenesin 1,200 mg tablet extended release 12hr 1,200 mg PO BID Qty: 14 0RF prednisone 20 mg tablet 40 mg PO DAILY Qty: 10 0RF ibuprofen 600 mg tablet 600 mg PO Q6H PRN (Reason: pain) Qty: 30 0RF polymyxin B sulf-trimethoprim [Polytrim] 10,000 unit- 1 mg/mL drops 1 drp ophthalmic (eye) Q3H 7 Days Qty: 10 0RF Rx Instructions: while awake; do not exceed 6 doses in 24 hours amoxicillin-pot clavulanate 875-125 mg tablet 1 tab PO BID 10 Days Qty: 20 0RF amoxicillin-pot clavulanate 875-125 mg tablet 1 tab PO BID 7 Days Qty: 14 0RF sulfamethoxazole-trimethoprim [Bactrim DS] 800-160 mg tablet 1 tab PO BID 5 Days Qty: 10 0RF Stand Alone Forms: Work/School Release Print Language: Georgian
[2023-10-24 11:50] LABS: IDNOW Serial# 08D9AD1C; Strep A Nucleic Acid Negative (Negative)
[2023-10-24 12:04] VITALS: BP 113/76; PULSE 69; RESP 14; TEMP 36.5; O2SAT 98
[2023-10-24 12:22] LABS: Influenza A PCR NEGATIVE (Negative); Influenza B PCR NEGATIVE (Negative); Resp Syncy Virus RNA Qual PCR NEGATIVE (Negative); SARS COV2 PCR INHOUSE NEGATIVE (Negative)
[2023-10-24] MEDS: Acetaminophen 325 MG TABLET 975 MG PO (12:30)
[2023-10-24 13:15] VITALS: BP 113/76; PULSE 69; RESP 14; TEMP 36.5; O2SAT 98
== END 2023-10-24 13:16 | disposition home or self-care (01) ==
PROVIDERS: Physician Assistant Medical; Emergency Provider Emergency Medicine
DX: J06.9 Acute upper respiratory infection, unspecified (principal); B34.9 Viral infection, unspecified; R50.9 Fever, unspecified; Z03.818 Encounter for observation for suspected exposure to other biological agents ruled out; R05.9 Cough, unspecified
CPT/HCPCS: 0241U; 87651; 99283; 99284

== ENCOUNTER 2024-04-17 09:24 | Emergency (ER) | payer OTHER, SELFPAY ==
--- NOTE | ~2024-04-17 | US_ITS ---
CLINICAL HISTORY: RUQ pain US abdomen limited with duplex and color Doppler Comparison: CT - CT ABDOMEN PELVIS W IV CON - 01/30/2022 04:23 PM EDT US/SR - US ABDOMEN LIMITED - 01/30/2022 03:23 PM EDT Findings: Midline structures obscured by bowel gas Liver is normal in size and mildly echogenic. Right lobe measures 14.6 cm. No focal hepatic lesions. Common duct 3.0 mm diameter. Gallbladder is physiologically distended. No gallstones, sludge or wall abnormalities. No gallbladder wall thickening. No pericholecystic fluid. No sonographic Schultz sign. Main portal vein antegrade. Right kidney measures, 11.4 cm in length. Normal cortical width and echotexture. No hydronephrosis calculus or mass. Impression: 1. Normal gallbladder. 2. Hepatic steatosis. 3. Bowel gas obscures midline structures. This document has been electronically signed by: Peña Shaw MD on 04/17/2024 11:05:46
[2024-04-17 09:31] VITALS: BP 143/83; PULSE 98; RESP 18; TEMP 36.8; O2SAT 97; BMI 41.3
--- NOTE | 2024-04-17 09:46 | ED.GENADULT ---
HPI - General Adult General Chief complaint: General Medical Stated complaint: Flu symptoms Time Seen by Provider: 04/17/24 09:45 Source: patient and RN notes reviewed Mode of arrival: ambulatory Limitations: no limitations History of Present Illness ED Provider: Delicia Mcdonald PA-C HPI narrative: This is a 24-year-old male, with no known medical problems, who presents emergency department with complaints of body aches, sore throat, cough, nausea since last night. Patient reports that he was recently exposed to someone with influenza A. Patient also reports that he has had some abdominal pain, worsening over the last day. Also endorsing some nausea. He denies any chest pain, shortness of breath, vomiting or diarrhea. No constipation. No urinary symptoms. MD complaint: Body aches, sore throat, cough Onset (ago): day(s) Radiation: non-radiation Quality: aching Pain Consistency: constant Relieving factors: none Exacerbating factors: none Associated symptoms: cough and nausea/vomiting Treatments prior to arrival: none Related Data Previous Rx's ?Medication ?Instructions ?Recorded sulfamethoxazole 800 1 tab PO BID 5 days #10 tabs 02/10/23 mg-trimethoprim 160 mg tablet (Bactrim DS) polymyxin B sulfate 10,000 1 drp ophthalmic (eye) Q3H 7 days 02/28/23 unit-trimethoprim 1 mg/mL eye #10 mL drops (Polytrim) amoxicillin 875 mg-potassium 1 tab PO BID 10 days #20 tabs 03/04/23 clavulanate 125 mg tablet amoxicillin 875 mg-potassium 1 tab PO BID 7 days #14 tabs 06/20/23 clavulanate 125 mg tablet guaifenesin 1,200 mg tablet, 1,200 mg PO BID #14 tabs 08/28/23 extended release 12 hr ibuprofen 600 mg tablet 600 mg PO Q6H PRN pain #30 tabs 10/10/23 prednisone 20 mg tablet 40 mg (2 x 20 mg) PO DAILY #10 tabs 10/10/23 acetaminophen 500 mg tablet 500 mg PO Q6H PRN pain #30 tabs 04/17/24 (Tylenol Extra Strength) ibuprofen 600 mg tablet 600 mg PO Q6H PRN pain #30 tabs 04/17/24 ondansetron 4 mg disintegrating 4 mg PO Q6H PRN nausea and 04/17/24 tablet vomiting #10 tabs oseltamivir 75 mg capsule (Tamiflu) 75 mg PO BID 5 days #10 caps 04/17/24 Allergies Allergy/AdvReac Type Severity Reaction Status Date / Time No Known Allergies Allergy Verified 04/17/24 09:32 Review of Systems Review of Systems: Yes all other systems are reviewed and are negative Constitutional: Constitutional: Reports as per [facility] Past Medical History Medical History No known health problems Social History Social History Household Members: Family Alcohol intake: never Patient Tobacco Use Status: Never used Tobacco Tobacco use type: Cigarette Substance Use Type: Marijuana Physical Exam ED Vital Signs: Vital Signs - 24 hr 04/17/24 12:00 04/17/24 13:10 Temperature 98.2 F Pulse Rate 92 92 Respiratory Rate 18 18 Blood Pressure 109/67 109/67 Pulse Oximetry 96 98 Oxygen Delivery Method Room Air Room Air BMI result Body Mass Index 41.3 Const General: cooperative, comfortable and no acute distress Orientation/consciousness: patient oriented x3 Limitations: no limitations HENMT Other: Posterior oropharynx is mildly erythematous, no tonsillar hypertrophy or exudates noted. Uvula is midline. No trismus, drooling, or dysphonia. Head: Yes normal to inspection, Yes normocephalic and Yes atraumatic Ears: hearing grossly normal bilaterally and TM normal on the right General nose exam: Normal external nose present Face and sinus: Yes normal facial exam Mouth: Normal oral and palatal mucosa present Throat: Yes posterior oropharynx normal Eyes General: appearance normal, both eyes and all related structures Eyelids: Yes eyelids normal Conjunctivae: conjunctivae normal Sclerae: sclerae normal Pupils: Equal, round and reactive pupils present EOM: EOMs intact bilaterally Neck Neck: Yes normal visual inspection, Yes full ROM and Yes no lymphadenopathy Lymphatic: no lymphadenopathy noted Chest Chest palpation & inspection: normal inspection of the chest Resp Effort & Inspection: normal respiratory effort and able to speak in complete sentences Auscultation: clear to auscultation bilaterally, no crackles, no rales, no rhonchi and no wheezes Cardio Rate: regular rate Rhythm: regular rhythm Heart sounds: S1 normal heart sound present and S2 normal heart sound present GI Other: Abdomen is soft, with tenderness palpation in the right upper quadrant, positive Schultz's sign. No rebound or guarding. Inspection: Yes normal to inspection Skin General skin exam: no rashes or lesions noted Trauma: no lacerations or abrasions Wounds: no wounds Neuro General: patient oriented x3 and moves all extremities Cranial nerves: Yes Equal, round and reactive pupils present Extrem General: Yes normal to inspection Right upper extremity: normal to inspection Left upper extremity: normal to inspection Right lower extremity: normal to inspection Left lower extremity: normal to inspection Course Reevaluation(s) Reevaluation #1: Ultrasound revealing normal gallbladder, fatty liver, negative Schultz's sign. Labs with no leukocytosis, stable H&H, AST and ALT slightly elevated, he has a history of this. This may be attributed to virus. He did test positive for influenza A. Discussed findings with patient. Patient reporting abdominal pain, will administer GI cocktail and IV Zofran. Will continue to monitor. Time: 11:47 Reevaluation #2: Pt feeling better after GI cocktail. Discussed workup with patient. Given strict return precautions. Pt understands and agrees with plan. Stable for d/c Medications Administered Discontinued Medications Generic Name Dose Route Start Last Admin Trade Name Freq PRN Reason Stop Dose Admin Acetaminophen 975 mg 04/17/24 09:53 04/17/24 10:09 Acetaminophen 325 Mg Tablet PO 04/17/24 09:54 975 mg ONCE ONE Administration Al Hydroxide/Mg Hydroxide 15 ml 04/17/24 11:52 04/17/24 12:01 Magnesium Hydrox/Alum Hydrox 30 Ml Oral.Susp PO 04/17/24 11:53 15 ml ONCE ONE Administration Belladonna Alkaloids/Phenobarbital 10 ml 04/17/24 11:52 04/17/24 12:01 Phenobarb/Hyoscy/Atropine/Scop 10 Ml Elixir PO 04/17/24 11:53 10 ml ONCE ONE Administration Lidocaine HCl 15 ml 04/17/24 11:52 04/17/24 12:01 Lidocaine Hcl Viscous 2 % 15 Ml Solution MUCOUS MEM 04/17/24 11:53 15 ml ONCE ONE Administration Ondansetron HCl 4 mg 04/17/24 11:52 04/17/24 12:01 Ondansetron Hcl 4 Mg/2 Ml Vial IVPUSH 04/17/24 11:53 4 mg ONCE ONE Administration Medical Decision Making Medical Decision Making [facility] Narrative: This is a 24-year-old male who presents emergency department with complaints of body aches, headache, sore throat and cough. On arrival, patient mildly hypertensive at 143/83, all other vital signs within normal limits. He is speaking full sentences under no acute distress. Abdomen is soft with tenderness palpation in the right upper quadrant. No rebound or guarding. Oropharynx is mildly erythematous, no tonsillar hypertrophy or exudates. Recent exposure to flu, symptoms likely attributed to flu however given right upper quadrant pain, will pain labs, viral swabs, ultrasound. Differential diagnoses include cholelithiasis, gastritis, viral URI, covid, flu. Differential Diagnosis Differential Diagnoses: The differential diagnosis associated with the presentation includes See above Admission/Observation Consideration of admission/observation: Escalation of care including admission/observation considered Lab Data [facility] Lab Attestation statement: I reviewed the patient's lab results. see course 04/17/24 10:02 04/17/24 10:02 Labs: Lab Results 04/17/24 04/17/24 04/17/24 Range/Units 09:38 10:00 10:02 WBC 9.0 (4.8-10.8) X10*3/uL RBC 4.97 (4.60-5.80) X10*6/uL Hgb 15.4 (14.0-18.0) g/dl Hct 43.7 (42.0-52.0) % MCV 87.9 (80.0-98.0) fL MCH 31.0 (27.0-33.0) pg MCHC 35.2 (31.0-36.0) g/dl RDW 12.3 (11.0-16.0) % Plt Count 220 (160-400) X10*3/uL MPV 10.9 (9.4-12.4) fL Immature Gran % (Auto) 0.7 H (0.0-0.4) % Neut % (Auto) 74.7 H (45-73) % Lymph % (Auto) 10.3 L (20-40) % Dupage % (Auto) 10.2 (2-11) % Eos % (Auto) 3.2 (0-4) % Baso % (Auto) 0.9 (0-2) % Lymph # (Auto) 0.9 L (1.2-4.9) X10*3/uL Dupage # (Auto) 0.9 (0.1-1.2) X10*3/uL Eos # (Auto) 0.3 (0.0-0.4) X10*3/uL Baso # (Auto) 0.1 (0.0-0.2) X10*3/uL Abs Immat Gran (auto) 0.06 H (0.00-0.03) X10*3/uL Absolute Neuts (auto) 6.7 (2.0-8.3) x10*3/uL Absolute Nucleated RBC 0.000 (0.0-0.012) X10*3/uL Nucleated RBC % (auto) 0.0 (0.0-0.2) /100WBC Sodium 141 (135-145) mmol/L Potassium 4.3 (3.3-5.1) mmol/L Chloride 109 H (96-108) mmol/L Carbon Dioxide 24 (22-29) mmol/L Anion Gap 12 (12-20) BUN 10 (9-16) mg/dL Creatinine 0.76 (0.5-1.4) mg/dL Estim Creat Clear Calc 189.8 Estimated GFR > 60 Random Glucose 97 (60-115) mg/dL Calcium 9.3 D (8.4-10.2) mg/dL Magnesium 1.6 (1.6-2.6) mg/dL Total Bilirubin 0.4 (0.0-1.0) mg/dL Direct Bilirubin 0.1 (0.0-0.5) mg/dL AST 54 H (5-37) U/L ALT 86 H (0-40) U/L Alkaline Phosphatase 77 (39-117) U/L Total Protein 7.5 (6.5-8.0) g/dL Albumin 4.3 (3.5-5.0) g/dL Lipase 14 (8-78) U/L Influenza Type A (PCR) POSITIVE A (Negative) Influenza Type B (PCR) NEGATIVE (Negative) RSV RNA Qual (PCR) NEGATIVE (Negative) SARS-CoV-2 RNA (RT-PCR) NEGATIVE (Negative) S. pyogenes GrpA BERNICE Negative (Negative) Radiology Impression Discussion of test interpretation with radiology: I have reviewed the radiologist's reading. Radiologist Impression: CLINICAL HISTORY: RUQ pain US abdomen limited with duplex and color Doppler Comparison: CT - CT ABDOMEN PELVIS W IV CON - 01/30/2022 04:23 PM EDT US/SR - US ABDOMEN LIMITED - 01/30/2022 03:23 PM EDT Findings: Midline structures obscured by bowel gas Liver is normal in size and mildly echogenic. Right lobe measures 14.6 cm. No focal hepatic lesions. Common duct 3.0 mm diameter. Gallbladder is physiologically distended. No gallstones, sludge or wall abnormalities. No gallbladder wall thickening. No pericholecystic fluid. No sonographic Schultz sign. Main portal vein antegrade. Right kidney measures, 11.4 cm in length. Normal cortical width and echotexture. No hydronephrosis calculus or mass. Impression: 1. Normal gallbladder. 2. Hepatic steatosis. 3. Bowel gas obscures midline structures. This document has been electronically signed by: Peña Shaw MD on 04/17/2024 11:05:46 Dictated By: Peña Shaw MD Signed By: <Electronically sign Discharge Plan Discharge Clinical Impression: Influenza A Patient Disposition: Home, Self-Care Instructions: Influenza (ED) Additional Instructions: You were seen in the emergency department and tested positive for influenza A. This is a virus. Please drink plenty of fluids get plenty of rest. Please be advised that this is contagious, please limit exposures to other people. Tamiflu is a antiviral medication that can help shorten the length of your infection. Take as prescribed. Alternate between ibuprofen and Tylenol as needed for pain and symptoms. Zofran is a medication that can help with nausea. If any new or worsening symptoms occur including but not limited to severe chest pain or shortness for breath, please seek emergent care. Prescriptions: New oseltamivir [Tamiflu] 75 mg capsule 75 mg PO BID 5 Days Qty: 10 0RF ibuprofen 600 mg tablet 600 mg PO Q6H PRN (Reason: pain) Qty: 30 0RF ondansetron 4 mg tablet,disintegrating 4 mg PO Q6H PRN (Reason: nausea and vomiting) Qty: 10 0RF acetaminophen [Tylenol Extra Strength] 500 mg tablet 500 mg PO Q6H PRN (Reason: pain) Qty: 30 0RF No Action guaifenesin 1,200 mg tablet extended release 12hr 1,200 mg PO BID Qty: 14 0RF prednisone 20 mg tablet 40 mg PO DAILY Qty: 10 0RF ibuprofen 600 mg tablet 600 mg PO Q6H PRN (Reason: pain) Qty: 30 0RF polymyxin B sulf-trimethoprim [Polytrim] 10,000 unit- 1 mg/mL drops 1 drp ophthalmic (eye) Q3H 7 Days Qty: 10 0RF Rx Instructions: while awake; do not exceed 6 doses in 24 hours amoxicillin-pot clavulanate 875-125 mg tablet 1 tab PO BID 10 Days Qty: 20 0RF amoxicillin-pot clavulanate 875-125 mg tablet 1 tab PO BID 7 Days Qty: 14 0RF sulfamethoxazole-trimethoprim [Bactrim DS] 800-160 mg tablet 1 tab PO BID 5 Days Qty: 10 0RF Interventions: ED Discharge Assessment Last Done: 04/17/24 13:10 Discharge Date/Time: 04/17/24 13:10 Print Language: Turkmen
[2024-04-17 09:53] VITALS: BP 129/75; PULSE 88; RESP 18; TEMP 36.9; O2SAT 98
[2024-04-17 10:08] LABS: MANUAL DIFF FLAG NO
[2024-04-17 10:09] LABS: Basophils Absolute Auto 0.1 X10*3/uL (0.0-0.2); Basophils Percent Auto 0.9 % (0-2); Eosinophils Absolute Auto 0.3 X10*3/uL (0.0-0.4); Eosinophils Percent Auto 3.2 % (0-4); Hematocrit 43.7 % (42.0-52.0); Hemoglobin 15.4 g/dl (14.0-18.0); Imm Gran Abs Auto 0.06 X10*3/uL (0.00-0.03); Imm Gran Pct Auto 0.7 % (0.0-0.4); Lymphocytes Absolute Auto 0.9 X10*3/uL (1.2-4.9); Lymphocytes Percent Auto 10.3 % (20-40); Mean Corpuscular HGB Conc 35.2 g/dl (31.0-36.0); Mean Corpuscular Volume 87.9 fL (80.0-98.0); Mean Platelet Volume 10.9 fL (9.4-12.4); Monocytes Absolute Auto 0.9 X10*3/uL (0.1-1.2); Monocytes Percent Auto 10.2 % (2-11); Neutrophils Absolute Auto 6.7 x10*3/uL (2.0-8.3); Neutrophils Percent Auto 74.7 % (45-73); Platelet Count 220 X10*3/uL (160-400); Red Blood Count 4.97 X10*6/uL (4.60-5.80); Red Cell Distribution Width 12.3 % (11.0-16.0)
[2024-04-17] MEDS: Acetaminophen 325 MG TABLET 975 MG PO (10:09)
[2024-04-17 10:18] LABS: IDNOW Serial# 6674DD1D; Strep A Nucleic Acid Negative (Negative)
--- NOTE | 2024-04-17 10:18 | PC.NURSE ---
Patient admitted from home via triage for flu like symptoms that started last night. Alert and oriented. Patient reports 6/10 pain to right upper quadrant, Acetaminophen given as ordered. Labs obtained, results pending.
[2024-04-17 10:26] LABS: Influenza A PCR POSITIVE (Negative); Influenza B PCR NEGATIVE (Negative); Resp Syncy Virus RNA Qual PCR NEGATIVE (Negative); SARS COV2 PCR INHOUSE NEGATIVE (Negative)
[2024-04-17 10:30] LABS: Alanine Aminotransferase 86 U/L (0-40); Albumin Level 4.3 g/dL (3.5-5.0); Alkaline Phosphatase 77 U/L (39-117); Anion Gap 12 (12-20); Aspartate Amino Transferase 54 U/L (5-37); Bilirubin Direct 0.1 mg/dL (0.0-0.5); Bilirubin Total 0.4 mg/dL (0.0-1.0); Blood Urea Nitrogen 10 mg/dL (9-16); Calcium 9.3 mg/dL (8.4-10.2); Carbon Dioxide 24 mmol/L (22-29); Chloride 109 mmol/L (96-108); Creatinine Clr Calc Pharmacy 189.8; Estimated Glomerular Filt Rate > 60; Glucose Random 97 mg/dL (60-115); Lipase 14 U/L (8-78); Magnesium 1.6 mg/dL (1.6-2.6); Potassium 4.3 mmol/L (3.3-5.1); Sodium 141 mmol/L (135-145); Total Protein 7.5 g/dL (6.5-8.0)
[2024-04-17 12:00] VITALS: BP 109/67; PULSE 92; RESP 18; O2SAT 96
[2024-04-17] MEDS: Magnesium Hydrox/Alum Hydrox 30 ML ORAL.SUSP 15 ML PO (12:01)
[2024-04-17] MEDS: PHENobarb/Hyoscy/Atropine/Scop 10 ML ELIXIR PO (12:01)
[2024-04-17] MEDS: ondansetron HCL 4 MG/2 ML VIAL IVPUSH (12:01)
[2024-04-17] MEDS: Lidocaine HCl Viscous 2 % 15 ML SOLUTION MUCOUS MEM (12:01)
[2024-04-17 13:10] VITALS: BP 109/67; PULSE 92; RESP 18; TEMP 36.8; O2SAT 98
== END 2024-04-17 13:10 | disposition home or self-care (01) ==
PROVIDERS: Physician Assistant Medical; Emergency Provider Emergency Medicine
DX: J10.1 Influenza due to other identified influenza virus with other respiratory manifestations (principal); M79.10 Myalgia, unspecified site; R05.9 Cough, unspecified; R11.0 Nausea; R10.2 Pelvic and perineal pain; Z03.818 Encounter for observation for suspected exposure to other biological agents ruled out; Z79.899 Other long term (current) drug therapy
CPT/HCPCS: 0241U; 36415; 76705; 80048; 80076; 83690; 83735; 85025; 87651; 96374; 99284; J2405

== ENCOUNTER → 2024-04-17 09:52 | Outpatient (BNV) | payer OTHER, SELFPAY | PROVIDERS: Emergency Provider Emergency Medicine; Visit Provider Radiology Diagnostic Radiology | DX: R10.11 Right upper quadrant pain (principal) | CPT/HCPCS: 93975 ==

== ENCOUNTER 2024-05-03 17:53 | Emergency (ER) | payer OTHER, SELFPAY ==
--- NOTE | ~2024-05-03 | CT_ITS ---
CLINICAL HISTORY: N V D ABD pain, elevated LFT CT abdomen and pelvis with contrast Comparison: US - US ABDOMEN LIMITED - 04/17/24 10:[address] - CT ABDOMEN PELVIS W IV CON - 01/30/22 16:23 EDT Findings: No consolidation or effusion. The gallbladder and solid organs are within normal limits. No hydronephrosis or hydroureter. No bowel obstruction, pneumoperitoneum, or pneumatosis. Multiple fluid-filled loops of nondilated small bowel with mild mucosal hyperemia identified throughout the abdomen. Pelvic contents unremarkable. No bladder wall thickening. Normal appendix. No acute fracture visualized. IMPRESSION: 1. Multiple fluid-filled loops of nondilated small bowel with mild mucosal hyperemia identified throughout the abdomen, which may be seen in the setting of a mild enteritis. No other CT evidence for an acute inflammatory process identified within the abdomen or pelvis. No bowel obstruction. This document has been electronically signed by: David Wright MD on 05/04/2024 00:37:49
[2024-05-03 17:59] VITALS: BP 150/73; PULSE 94; RESP 20; TEMP 36.5; O2SAT 98; BMI 33.4
--- NOTE | 2024-05-03 18:24 | ED.GENADULT ---
HPI - General Adult General Chief complaint: Nausea/Vomiting/Diarrhea Stated complaint: Vomiting Time Seen by Provider: 05/03/24 22:57 Source: patient Limitations: no limitations History of Present Illness ED Provider: Mariela Gaines NP HPI narrative: Patient is a 24-year-old male who presents emergency department for evaluation of upper abdominal pain with nausea vomiting and diarrhea. Onset earlier today. He tested positive for influenza A 04/17/2024, this was however just over 2 weeks ago. Symptoms had resolved entirely and he was just feeling ?unwell?. Reports his daughters were sick last week, with an ear infection and respiratory symptoms. Denies fevers, chills, chest pain, hematemesis, diarrhea, hematochezia, melena, dysuria, urinary frequency, urinary urgency, urinary hesitancy, hematuria. denies testicular pain/urethral discharge or scrotal swelling. Denies concern for sexually transmitted infection. Related Data Previous Rx's ?Medication ?Instructions ?Recorded sulfamethoxazole 800 1 tab PO BID 5 days #10 tabs 02/10/23 mg-trimethoprim 160 mg tablet (Bactrim DS) polymyxin B sulfate 10,000 1 drp ophthalmic (eye) Q3H 7 days 02/28/23 unit-trimethoprim 1 mg/mL eye #10 mL drops (Polytrim) amoxicillin 875 mg-potassium 1 tab PO BID 10 days #20 tabs 03/04/23 clavulanate 125 mg tablet amoxicillin 875 mg-potassium 1 tab PO BID 7 days #14 tabs 06/20/23 clavulanate 125 mg tablet guaifenesin 1,200 mg tablet, 1,200 mg PO BID #14 tabs 08/28/23 extended release 12 hr ibuprofen 600 mg tablet 600 mg PO Q6H PRN pain #30 tabs 10/10/23 prednisone 20 mg tablet 40 mg (2 x 20 mg) PO DAILY #10 tabs 10/10/23 acetaminophen 500 mg tablet 500 mg PO Q6H PRN pain #30 tabs 04/17/24 (Tylenol Extra Strength) ibuprofen 600 mg tablet 600 mg PO Q6H PRN pain #30 tabs 04/17/24 ondansetron 4 mg disintegrating 4 mg PO Q6H PRN nausea and 04/17/24 tablet vomiting #10 tabs oseltamivir 75 mg capsule (Tamiflu) 75 mg PO BID 5 days #10 caps 04/17/24 ondansetron 4 mg disintegrating 4 mg PO Q8H PRN nausea and 05/04/24 tablet vomiting #10 tabs Allergies Allergy/AdvReac Type Severity Reaction Status Date / Time No Known Allergies Allergy Verified 05/03/24 18:00 Review of Systems Review of Systems: Yes all other systems are reviewed and are negative PMFSH Past Medical History Attestation statement: The following information was validated with the patient. Source: old records reviewed Medical History No known health problems Social History Social History Household Members: Family Alcohol intake: never Patient Tobacco Use Status: Never used Tobacco Tobacco use type: Cigarette Substance Use Type: Marijuana Advance Directives: No Advance Directives Information Provided: No Physical Exam ED Vital Signs: Vital Signs - 24 hr 05/03/24 21:44 05/04/24 00:46 Temperature 98.5 F 98.2 F Pulse Rate 85 72 Respiratory Rate 14 18 Blood Pressure 122/65 107/51 L Pulse Oximetry 98 100 Oxygen Delivery Method Room Air Room Air BMI result Body Mass Index 33.4 Appearance: Alert.?Oriented to person, place and time. No acute distress.?Normal affect.?? Neck: Normal inspection.? Neck supple.?? CVS: Heart sounds normal. Normal heart rate and rhythm.? Pulses normal.?? Respiratory: No respiratory distress.? Lung sounds clear to auscultation bilaterally?? Abdomen: Soft with diffuse upper abdominal tenderness upon palpation right and epigastric worse than the left. Positive Schultz sign. No rebound tenderness at McBurney's point. Negative psoas sign. Negative Rovsing sign. No CVAT. Normoactive bowel sounds. No pulsatile mass.?? Skin: Skin warm and dry.? Normal skin color.? Extremities: No lower extremity edema.? Neuro: Moves all extremities spontaneously. Sensation intact bilaterally. Ambulates with normal steady gait. Course Course Course Narrative: RME: 24 year old male presents to ED for nausea vomiting diarrhea and abdominal pain. Patient states daughter is also having similar symptoms. Labs odor Medications Administered Discontinued Medications Generic Name Dose Route Start Last Admin Trade Name Freq PRN Reason Stop Dose Admin Sodium Chloride 1,000 mls @ 999 mls/hr 05/03/24 23:15 05/04/24 00:41 Ns IV 05/04/24 00:15 Infused .Q1H1M ANTELMO Infusion Iohexol 100 ml 05/03/24 23:42 05/03/24 23:42 Iohexol 350 Mg/Ml 100 Ml Infus..Btl IV 05/03/24 23:43 100 ml ONCE ONE Administration Ketorolac Tromethamine 15 mg 05/03/24 23:03 05/03/24 23:21 Ketorolac Tromethamine 15 Mg/Ml Vial IVPUSH 05/03/24 23:04 15 mg ONCE ONE Administration Ondansetron HCl 4 mg 05/03/24 23:03 05/03/24 23:20 Ondansetron Hcl 4 Mg/2 Ml Vial IVPUSH 05/03/24 23:04 4 mg ONCE ONE Administration Medical Decision Making Medical Decision Making [facility] Narrative: Patient is a 24-year-old male with no reported past medical history presenting to emergency department for evaluation of upper abdominal pain with nausea vomiting and diarrhea onset today. He has notable tenderness diffusely throughout the upper abdomen but worse in the right upper quadrant and epigastric region. On review of serum labs obtained prior to my assumption of care he has a notable leukocytosis of 9400 with left shift no anemia or thrombocytopenia. No electrolyte derangement. No WILLEM. LFTs revealing T bili 1.5 AST 52 and ALT of 83 with a normal lipase, pending direct bilirubin at this time. Given his exam findings and presenting symptoms, discussed plan of care for 1 L normal saline IV fluid, Zofran 4 mg IV, CT abdomen pelvis to evaluate further, concern for acute cholecystitis, choledocholithiasis, no fever jaundice however to suggest acute cholangitis possibly biliary colic secondary to cholelithiasis. Denies associated acid reflux, however given tenderness may possibly be gastritis, no recent hematemesis to suggest PUD. Denies excessive alcohol consumption or history of diabetes to suggest acute pancreatitis. No lower abdominal pain or tenderness upon palpation lower suspicion for appendicitis, and given age lower suspicion for diverticulitis. No acute genitourinary symptoms. Possibly viral gastroenteritis and leukocytosis is reactive in the setting of vomiting. No rigidity of the abdomen to suggest acute perforation no hypotension. Differential Diagnosis Differential Diagnoses: The differential diagnosis associated with the presentation includes (See narrative above) Admission/Observation Consideration of admission/observation: Escalation of care including admission/observation considered (See narrative above ) Lab Data MDM Lab Attestation statement: I reviewed the patient's lab results. (See narrative above) 05/03/24 18:35 05/03/24 18:35 Labs: Lab Results 05/03/24 05/03/24 Range/Units 18:35 21:50 WBC 19.4 H (4.8-10.8) X10*3/uL RBC 5.52 (4.60-5.80) X10*6/uL Hgb 16.9 (14.0-18.0) g/dl Hct 48.4 (42.0-52.0) % MCV 87.7 (80.0-98.0) fL MCH 30.6 (27.0-33.0) pg MCHC 34.9 (31.0-36.0) g/dl RDW 12.2 (11.0-16.0) % Plt Count 293 D (160-400) X10*3/uL MPV 10.4 (9.4-12.4) fL Immature Gran % (Auto) 0.5 H (0.0-0.4) % Neut % (Auto) 84.0 H (45-73) % Lymph % (Auto) 7.7 L (20-40) % [place] % (Auto) 5.1 (2-11) % Eos % (Auto) 2.2 (0-4) % Baso % (Auto) 0.5 (0-2) % Lymph # (Auto) 1.5 (1.2-4.9) X10*3/uL [place] # (Auto) 1.0 (0.1-1.2) X10*3/uL Eos # (Auto) 0.4 (0.0-0.4) X10*3/uL Baso # (Auto) 0.1 (0.0-0.2) X10*3/uL Abs Immat Gran (auto) 0.09 H (0.00-0.03) X10*3/uL Absolute Neuts (auto) 16.3 H (2.0-8.3) x10*3/uL Absolute Nucleated RBC 0.000 (0.0-0.012) X10*3/uL Nucleated RBC % (auto) 0.0 (0.0-0.2) /100WBC Sodium 142 (135-145) mmol/L Potassium 3.7 (3.3-5.1) mmol/L Chloride 103 (96-108) mmol/L Carbon Dioxide 31 H (22-29) mmol/L Anion Gap 12 (12-20) BUN 14 (9-16) mg/dL Creatinine 0.84 (0.5-1.4) mg/dL Estim Creat Clear Calc 153.9 Estimated GFR > 60 Random Glucose 100 (60-115) mg/dL Calcium 9.3 (8.4-10.2) mg/dL Total Bilirubin 1.5 H (0.0-1.0) mg/dL Direct Bilirubin 0.3 (0.0-0.5) mg/dL AST 52 H (5-37) U/L ALT 83 H (0-40) U/L Alkaline Phosphatase 84 (39-117) U/L Total Protein 8.5 H (6.5-8.0) g/dL Albumin 4.8 (3.5-5.0) g/dL Lipase 15 (8-78) U/L Urine Color Dark Yellow Urine Appearance Clear Urine pH >= 9.0 (5.0-9.0) Ur Specific [place] >= 1.030 H (1.005-1.025) Urine Protein 30 (1+) H (Neg-Trace) mg/dL Urine Glucose (UA) Negative (Negative) mg/dL Urine Ketones Trace (Negative) mg/dL Urine Blood Negative (Negative) Urine Nitrite Negative (Negative) Ur Leukocyte Esterase Trace H (Negative) Urine RBC 3-5 H (0-2) /HPF Urine WBC 0-5 (0-5) /HPF Ur Squamous Epith Cells 0-2 (0-2) /HPF Urine Bacteria None Seen (None Seen) Hyaline Casts 0-2 (0-2) /LPF Influenza Type A (PCR) NEGATIVE (Negative) Influenza Type B (PCR) NEGATIVE (Negative) RSV RNA Qual (PCR) NEGATIVE (Negative) SARS-CoV-2 RNA (RT-PCR) NEGATIVE (Negative) S. pyogenes GrpA BERNICE Negative (Negative) Independent Interpretation I performed an independent interpretation of an: CT Scan Radiology Impression Discussion of test interpretation with radiology: I have reviewed the radiologist's reading. Radiologist Impression: IMPRESSION: 1. Multiple fluid-filled loops of nondilated small bowel with mild mucosal hyperemia identified throughout the abdomen, which may be seen in the setting of a mild enteritis. No other CT evidence for an acute inflammatory process identified within the abdomen or pelvis. No bowel obstruction. External Record Review External record reviewed: Outpatient record Discharge Plan Discharge Clinical Impression: Acute gastroenteritis Patient Disposition: Home, Self-Care Instructions: Gastroenteritis (ED) Additional Instructions: Be sure that you are staying well hydrated. Drinking plenty of clear liquids over the next 24 hours. You may then slowly advance to a bland diet. Introduce a bland diet including crackers, bananas, rice, soup, toast, and boiled vegetables. This may progress to plain baked or boiled chicken or turkey. Avoid dairy products or foods high in fat or grease. Prescription for Zofran has been sent to your pharmacy to use as needed for nausea/vomiting. CT imaging shows findings consistent with gastroenteritis, this is likely viral in nature. Follow-up with your primary care doctor. Return with any new or worsening symptoms or concerns Prescriptions: New ondansetron 4 mg tablet,disintegrating 4 mg PO Q8H PRN (Reason: nausea and vomiting) Qty: 10 0RF No Action guaifenesin 1,200 mg tablet extended release 12hr 1,200 mg PO BID Qty: 14 0RF prednisone 20 mg tablet 40 mg PO DAILY Qty: 10 0RF ibuprofen 600 mg tablet 600 mg PO Q6H PRN (Reason: pain) Qty: 30 0RF polymyxin B sulf-trimethoprim [Polytrim] 10,000 unit- 1 mg/mL drops 1 drp ophthalmic (eye) Q3H 7 Days Qty: 10 0RF Rx Instructions: while awake; do not exceed 6 doses in 24 hours amoxicillin-pot clavulanate 875-125 mg tablet 1 tab PO BID 10 Days Qty: 20 0RF amoxicillin-pot clavulanate 875-125 mg tablet 1 tab PO BID 7 Days Qty: 14 0RF oseltamivir [Tamiflu] 75 mg capsule 75 mg PO BID 5 Days Qty: 10 0RF ibuprofen 600 mg tablet 600 mg PO Q6H PRN (Reason: pain) Qty: 30 0RF ondansetron 4 mg tablet,disintegrating 4 mg PO Q6H PRN (Reason: nausea and vomiting) Qty: 10 0RF acetaminophen [Tylenol Extra Strength] 500 mg tablet 500 mg PO Q6H PRN (Reason: pain) Qty: 30 0RF sulfamethoxazole-trimethoprim [Bactrim DS] 800-160 mg tablet 1 tab PO BID 5 Days Qty: 10 0RF Referrals: Physician,None [Primary Care Provider] - Discharge Date/Time: 05/04/24 00:59 Print Language: Kosovan
--- OUTSIDE RECORDS SUMMARY | 2024-05-03 18:33 | XMS_ITS | Data Portability ---
Author Organization [facility], [id number] [place] [address] Assessment No assessment recorded. Plan of Treatment Reminders Order Date Submit Date Provider Last Modified By Organization Details Last Modified Time Details Appointments None recorded. Lab urinalysis, dipstick 2022 [id number] [place] [address], [address] [place] [address], [place], [address], 12:09:30 culture, urine 2022 023 [place] [facility] ([facility], [address] [place] [address], [place], [address], 3 06:06:09 Referral gastroenter ologist referral - He has intermitten t / cycling lower abdominal pain for years without evaluation. He has no PCP currently. 2022 023 [email or web address] 1 [facility], [address] [place], [address], 3 13:55:15 Procedures None recorded. Surgeries None recorded. Imaging None recorded. Medication Orders Probiotic 10 billion cell capsule 2022 023 [email or web address] 247 [id number], [address] [facility], [place], [address], 3 12:20:52 Patient TargetsNo targets recorded. Patient Instructions Encounter Date Encounter Id Patient Instructions Last Modified By Organization Details Last Modified Time 09/27/2022 [id number] Increase your fluid intake to at least 1.5 liters per day and increase your fiber intake to about 10 grams per day. You may use an over the counter fiber (e.g. Metamucil/citruce l) as a supplement, using it according to the package directions. [email or web address] Not available 09/27/2022 12:11:07 I recommend you take a probiotic. These are good bacteria that may be missing in your stomach or help with GI symptoms you are having (diarrhea or stomach cramping). FLORASTOR is a common probiotic. You can find this at the pharmacy usually on the shelf. Yogurt also contains good bacteria that may help GI symptoms. 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 He has no PCP currently. Referring Physician: Twyla Sanders, Urgent Care, Encounter Date: 09/27/2022 Results Created Date Observation Date Name Description Value Unit Range Abnormal Flag Note LastModifiedBy Organization Detail LastModifiedTime 09/28/1909/29/2022 URINE CULTU RE, ROUTI NE urine culture, routine FINAL REPORT Not Available [facility] ([facility]) [address] [place], [address], 09/29/2022 06:06:09 09/28/19 23 09/29/2022 URINE CULTU RE, ROUTI NE result 1 NO GROWTH Not Available [facility] ([facility]) [address] [place], [address], 09/29/2022 06:06:09 09/28/19 23 09/27/2022 urina lysis , dipst ick Unknown Analyte Normal = light yellow Not Available sean espinoza [address], [address], 09/27/2022 11:08:46 09/28/19 23 09/27/2022 urina lysis , dipst ick Unknown Analyte Normal = clear Not Available sean espinoza [address] [place], [address], 09/27/2022 11:08:46 09/28/19 23 09/27/2022 urina lysis , dipst ick Unknown Analyte Normal = negati ve Not Available 2099sean espinoza [address], [place], [address], 09/27/2022 11:08:46 09/28/1909/27/2022 urina lysis , dipst ick Unknown Analyte Normal = Negati ve Not Available [facility] [address], [place], [address], 09/27/2022 11:08:46 09/28/19 23 09/27/2022 urina lysis , dipst ick Unknown Analyte Normal = Negati ve Not Available [facility] [address], [place], [address], 09/27/2022 11:08:46 09/28/19 23 09/27/2022 urina lysis , dipst ick Unknown Analyte Normal = 1.010, 1.015, 1.020 Not Available 2099sean espinoza [address], [place], [address], 09/27/2022 11:08:46 09/28/19 23 09/27/2022 urina lysis , dipst ick Unknown Analyte Normal = Negati ve Not Available sean espinoza [address], [place], [address], 09/27/2022 11:08:46 09/28/19 23 09/27/2022 urina lysis , dipst ick Unknown Analyte Normal = 6.5, 7.0, 7.5, 8.0 Not Available [facility] [address], [place], [address], 09/27/2022 11:08:46 09/28/19 23 09/27/2022 urina lysis , dipst ick Unknown Analyte Normal = Negati ve Not Available sean espinoza [address], [place], [address], 09/27/2022 11:08:46 09/28/19 23 09/27/2022 urina lysis , dipst ick Unknown Analyte Normal = 0.2, 1.0 Not Available 2099sean espinoza [address], [place], [address], 09/27/2022 11:08:46 09/28/19 23 09/27/2022 urina lysis , dipst ick Unknown Analyte Normal = Negati ve Not Available 2099sean espinoza [address], [place], [address], 09/27/2022 11:08:46 09/28/19 23 09/27/2022 urina lysis , dipst ick Unknown Analyte Normal = Negati ve Not Available sean [address], [place], [address], 09/27/2022 11:08:46 09/28/19 23 09/27/2022 urina lysis , dipst ick Unknown Analyte 1.030 Not Available [facility] [address], [place], [address], 09/27/2022 11:08:46 09/28/19 23 09/27/2022 urina lysis , dipst ick Unknown Analyte 6.5 Not Available [address], [place], [address], 09/27/2022 11:08:46 09/28/19 23 09/27/2022 urina lysis , dipst ick Unknown Analyte Light Yellow Not Available sean [address], [place], [address], 09/27/2022 11:08:46 09/28/19 23 09/27/2022 urina lysis , dipst ick Unknown Analyte Clear Not Available joanne [address], [place], [address], 09/27/2022 11:08:46 09/28/19 23 09/27/2022 urina lysis , dipst ick Unknown Analyte Negati ve Not Available sean espinoza [address], [place], [address], 09/27/2022 11:08:46 09/28/19 23 09/27/2022 urina lysis , dipst ick Unknown Analyte Negati ve Not Available sean espinoza [address], [place], [address], 09/27/2022 11:08:46 09/28/19 23 09/27/2022 urina lysis , dipst ick Unknown Analyte Negati ve Not Available sean espinoza [address], [place], [address], 09/27/2022 11:08:46 09/28/19 23 09/27/2022 urina lysis , dipst ick Unknown Analyte Negati ve Not Available sean espinoza [address], [place], [address], 09/27/2022 11:08:46 09/28/19 23 09/27/2022 urina lysis , dipst ick Unknown Analyte Negati ve Not Available sean espinoza [address], [place], [address], 09/27/2022 11:08:46 09/28/19 23 09/27/2022 urina lysis , dipst ick Unknown Analyte 0.2 E.U./d L Not Available sean espinoza [address], [place], [address], 09/27/2022 11:08:46 09/28/1909/27/2022 urina lysis , dipst ick Unknown Analyte Negati ve Not Available [address]_sean espinoza [address] [place], [address], 09/27/2022 11:08:46 09/28/1909/27/2022 urina lysis , dipst ick Unknown Analyte Negati ve Not Available [address]_se[address], [place], [address], 09/27/2022 11:08:46 Result Notes None recorded. Problems No Known Problems Procedures Surgical History Date Name Laterality Status Provider Name and Address Organization Details Recorded Time 3 OC-UDS Send Out Template NON DOT completed FAROOQ CONDON - [facility] 05/16/2022 13:21:38 Imaging Results None recorded. Procedure Notes None recorded. Medical Equipment None Reported. Allergies No known drug allergies Medications Name Sig Start Date Stop Date Status Note LastModified by Organization Details LastModified Time Probiotic 10 billion cell capsule Take 1 capsule every day by oral route at bedtime for 15 days. 023 active Not Available Not Available Not Avai lable Vitals Date Recorded Body height Body mass index (BMI) Body weight Body temperature Oxygen saturation Oxygen saturation in Arterial blood by Pulse oximetry Heart rate Respiratory rate Systolic blood pressure Diastolic blood pressure Provider Name and Address Organization Details Last Updated DateTime 3 172.72 cm 36.5 kg/m2 567431. 17 g 97.9 [degF] 98 % 98 % 98 /min 18 /min 116 mm[Hg] 77 mm[Hg] MADISON Concepcion [facility] 3 11:08:11 Social History Question Answer Notes LastModified by Organizat ion Details LastModified Time Tobacco Smoking Status Never Smoker [facility] Rodriguez [facility] 09/27/2022 11:06:43 What Is Your Level Of Alcohol Consumption? Occasional Information not available 09/27/2022 Which Illicit Or Recreational Drugs Have You Used? Marijuana Information not available 09/27/2022 Do You Use Any Illicit Or Recreational Drugs? Yes Information not available 09/27/2022 Sex: Unknown Functional Status None recorded. Mental Status None recorded. Family History Relationship Description Onset Age of this Age Resolved Age Notes LastModified by Organization Details LastModified Time Father No current problems or disability Not available 09/18 11:06:24 Mother No current problems or disability Not available 09/18 11:06:24 Medical History No medical history recorded. Immunizations Vaccine Type Date Status Note Provider Nam e and Address Organization Details Recorded Time Influenza, split virus, quadrivalent, preservative 5 completed MADISON BEST null, [place] - [facility] 09/27/2022 11:06:05 Influenza, split virus, quadrivalent, preservative 6 completed MADISON BEST null, [place] - [facility] 09/27/2022 11:06:05 HPV9 6 completed MADISON BEST null, [place] - [facility] 09/27/2022 11:06:05 HPV9 5 completed MADISON BEST null, [place] - [facility] 09/27/2022 11:06:05 COVID-19, mRNA, LNP-S, PF, 30 mcg/0.3 mL dose 1 completed MADISON BEST null, [place] - [facility] 09/27/2022 11:06:05 COVID-19, mRNA, LNP-S, PF, 30 mcg/0.3 mL dose 1 completed MADISON BEST null, [place] - [facility] 09/27/2022 11:06:05 Hep A, ped/adol, 2 dose 5 completed MADISON BEST null, [place] - [facility] 09/27/2022 11:06:05 meningococcal MCV4P 5 completed MADISON BEST null, [place] - [facility] 09/27/2022 11:06:05 Influenza, split virus, quadrivalent, PF 7 completed MADISON groves [place] - [facility] 09/27/2022 11:06:05 Influenza, split virus, quadrivalent, PF 1 completed MADISON groves, [place] - [facility] 09/27/2022 11:06:06 Past Encounters Encounter ID Performer Location Encounter Start Date Encounter Closed Date Diagnosis/Indication Diagnosis SNOMED-CT Code Diagnosis ICD10 Code Diagnosis Note [id number] Kyleigh_Kehinde [facility] [address] [facility] [place] [address] 01/23/2021 15:25:17 01/23/2021 16:43:40 [id number] Kimberly [facility]elton[facility]Dr [address] [facility] [place] [address] 12/08/2015 09:11:53 12/08/2015 09:52:56 [id number] Jeff5_Kehinde Gloriamo [facility] [address] [facility] [place] [address] 03/04/2019 16:23:53 03/04/2019 17:30:12 [id number] Jeff5_Kehinde Gloriamo [facility] [address] [facility] [place] [address] 11/23/2020 14:21:01 11/23/2020 18:45:45 [id number] Jeff5_Kehinde Blevins rialDr [address] [facility] [place] [address] 01/08/2017 09:58:58 01/08/2017 10:52:46 [id number] [place] [address]_Lak [address] d [address] [address] 05/16/2022 11:27:58 05/16/2022 13:47:59 History and physical examination, pre-employment [id number] Z02.1 [id number] [place] [address]_L[address] d [address] [address] 05/16/2022 12:50:40 05/16/2022 13:23:50 History and physical examination, pre-employment [id number] Z02.1 [id number] [place]LA SANDERS [place] [address] [place] [address] 09/27/2022 10:42:16 09/27/2022 12:21:09 Abdominal pain 60070625 R10.9 Intermitte nt cycling abdominal pain for years without evaluation . He has no PCP currently. Acute gastroenteritis 69 265704 K52.9 GI Clear LiquidsCle ar Liquids:Fr esh Marquis Root Tea-Cut up fresh marquis root and boil it till fragrant. drink the liquid as a tea. Can add Honey to taste.Sandi omille teaPepperm int tea (not with GERD-Reflu x)Clear broth soup: Vegetable, Chicken or Beef as tolerated. Start with drinking small amounts of clear liquids frequently . After you are able to tolerate clear liquids without vomiting for 6-12 hours, you may begin to eat small amounts of bland foods, such as bananas, rice, applesauce , toast. These foods make up the BRAT diet. You may also try crackers, dry toast, along with clear fluids. You may advance your diet to include other foods as tolerated. If you begin vomiting again, go back to clear liquids and start the process over again. If you are unable to tolerate clear liquids for more than 4 hours, you should return to [facility] or go to the nearest Emergency Department . Health Concerns Section Related Observation LastModified by Organization Detai ls LastModified Time None Recorded Concern Status LastModified by Organization Details LastModified Time None Recorded Advance Directives Directive None Recorded Payers Encounter Date Sequence Insurance Name Policy Number Policy Ruiz Covered Member ID Ruiz Member ID Guarantor Name 01/23/2021 1 [place]ICAID[place]: [facility] Jimmy Durán [id number] Jimmy Durán 05/16/2022 [employer] [place] Jimmy Durán 05/16/2022 [employer] [facility] Jimmy Durán 09/27/2022 1 [facility] - [facility] (MEDICAID REPLACEMENT - HMO) [facility] Jimmy Durán [id number] Jimmy Durán Notes Date Note Type Note Provider Name and Address Organization Details Recorded Time 09/27/2022 text/html Abdominal Pain UCReported bypatient.source of patient informationpatient Location:periumbilical; suprapubic Quality:cramping;aching ;sharp Severity:moderate; pain level 6/10 Duration:intermittent Onset/Timing:wax/wane Context:no travel Modifying Factors:nothing gives relief; nothing makes it worse; moving bowels; increased bowel frequency soft not watery. Associated Symptoms:no fever; no chills; no blood in the urine;change in bladder/bowel habits abd pain and vomiting x 2 -3 days, has had this pain for years TWYLA SANDERS MD [address] [place], [address], [place] - [facility] 09/27/2022 12:26:45
[2024-05-03 18:41] LABS: MANUAL DIFF FLAG NO
[2024-05-03 18:45] LABS: Basophils Absolute Auto 0.1 X10*3/uL (0.0-0.2); Basophils Percent Auto 0.5 % (0-2); Eosinophils Absolute Auto 0.4 X10*3/uL (0.0-0.4); Eosinophils Percent Auto 2.2 % (0-4); Hematocrit 48.4 % (42.0-52.0); Hemoglobin 16.9 g/dl (14.0-18.0); Imm Gran Abs Auto 0.09 X10*3/uL (0.00-0.03); Imm Gran Pct Auto 0.5 % (0.0-0.4); Lymphocytes Absolute Auto 1.5 X10*3/uL (1.2-4.9); Lymphocytes Percent Auto 7.7 % (20-40); Mean Corpuscular HGB Conc 34.9 g/dl (31.0-36.0); Mean Corpuscular Hemoglobin 30.6 pg (27.0-33.0); Mean Corpuscular Volume 87.7 fL (80.0-98.0); Mean Platelet Volume 10.4 fL (9.4-12.4); Monocytes Percent Auto 5.1 % (2-11); Neutrophils Absolute Auto 16.3 x10*3/uL (2.0-8.3); Platelet Count 293 X10*3/uL (160-400); Red Blood Count 5.52 X10*6/uL (4.60-5.80); Red Cell Distribution Width 12.2 % (11.0-16.0); White Blood Count 19.4 X10*3/uL (4.8-10.8)
[2024-05-03 18:49] LABS: IDNOW Serial# 08D9AD1C; Strep A Nucleic Acid Negative (Negative)
[2024-05-03 19:00] LABS: Alanine Aminotransferase 83 U/L (0-40); Albumin Level 4.8 g/dL (3.5-5.0); Alkaline Phosphatase 84 U/L (39-117); Anion Gap 12 (12-20); Aspartate Amino Transferase 52 U/L (5-37); Bilirubin Total 1.5 mg/dL (0.0-1.0); Blood Urea Nitrogen 14 mg/dL (9-16); Calcium 9.3 mg/dL (8.4-10.2); Carbon Dioxide 31 mmol/L (22-29); Chloride 103 mmol/L (96-108); Creatinine Clr Calc Pharmacy 153.9; Estimated Glomerular Filt Rate > 60; Glucose Random 100 mg/dL (60-115); Lipase 15 U/L (8-78); Potassium 3.7 mmol/L (3.3-5.1); Sodium 142 mmol/L (135-145); Total Protein 8.5 g/dL (6.5-8.0)
[2024-05-03 19:22] LABS: Influenza A PCR NEGATIVE (Negative); Influenza B PCR NEGATIVE (Negative); Resp Syncy Virus RNA Qual PCR NEGATIVE (Negative); SARS COV2 PCR INHOUSE NEGATIVE (Negative)
[2024-05-03 21:44] VITALS: BP 122/65; PULSE 85; RESP 14; TEMP 36.9; O2SAT 98
[2024-05-03 21:58] LABS: Appearance Urine Clear; Color Urine Dark Yellow; Glucose Urine UA Negative (Negative); Leukocyte Esterase Urine Trace (Negative); Nitrite Urine Negative (Negative); PH >= 9.0 (5.0-9.0); Specific Gravity - Urine >= 1.030 (1.005-1.025); UMIC TRIGGER UACC YES; Urine Blood Negative (Negative); Urine Ketones Trace mg/dL (Negative); Urine Protein 30 (1+) mg/dL (Neg-Trace)
[2024-05-03 22:16] LABS: Bacteria Urine None Seen (None Seen); Hyaline Casts Urine 0-2 /LPF (0-2); Squamous Epithelial Cell Urine 0-2 /HPF (0-2); WBC Urine 0-5 /HPF (0-5)
[2024-05-03] MEDS: ondansetron HCL 4 MG/2 ML VIAL IVPUSH (23:20)
[2024-05-03 23:21] LABS: Bilirubin Direct 0.3 mg/dL (0.0-0.5)
[2024-05-03] MEDS: Ketorolac Tromethamine 15 MG/ML VIAL IVPUSH (23:21)
[2024-05-03] MEDS: iohexoL 350 MG/ML 100 ML INFUS..BTL IV (23:42)
[2024-05-04] MEDS: 0.9 % Sodium Chloride 1,000 ML 999 ML IV (00:06)
[2024-05-04 00:46] VITALS: BP 107/51; PULSE 72; RESP 18; TEMP 36.8; O2SAT 100
== END 2024-05-04 00:59 | disposition home or self-care (01) ==
PROVIDERS: Nurse Practitioner Family; Physician Assistant; Emergency Provider Emergency Medicine Emergency Medical Services
DX: K52.9 Noninfective gastroenteritis and colitis, unspecified (principal); R10.10 Upper abdominal pain, unspecified; R11.2 Nausea with vomiting, unspecified; Z03.818 Encounter for observation for suspected exposure to other biological agents ruled out
CPT/HCPCS: 0241U; 74177; 80053; 81001; 81003; 82248; 83690; 85025; 87651; 96361; 96374; 96375; 99284; J1885; J2405; Q9967

== ENCOUNTER → 2024-05-03 23:03 | Outpatient (BNV) | payer OTHER, SELFPAY | PROVIDERS: Emergency Provider Emergency Medicine Emergency Medical Services; Visit Provider Radiology Diagnostic Radiology | DX: K56.609 Unspecified intestinal obstruction, unspecified as to partial versus complete obstruction (principal) | CPT/HCPCS: 74177 ==

== ENCOUNTER 2024-10-29 20:10 | Emergency (ER) | payer SELFPAY ==
--- NOTE | ~2024-10-29 | XR_ITS ---
CLINICAL HISTORY: pain 2 views left tibia-fibula Comparison: CR/NY - XR ANKLE LT MIN 3V - 10/29/24 21:33 EDT Findings: There is soft tissue swelling in the lateral ankle. There is no acute fracture. Joint alignment is normal. There is no radiopaque foreign body. Impression: No acute osseous abnormality. This document has been electronically signed by: Sav Fried MD on 10/29/2024 21:59:54
--- NOTE | ~2024-10-29 | XR_ITS ---
CLINICAL HISTORY: pain 3 views left ankle Comparison: None Findings: There is lateral soft tissue swelling. There are small rounded corticated ossific densities inferior to the lateral malleolus likely from remote trauma. There is no acute fracture. Joint spaces and joint alignment are normal. Impression: No acute osseous abnormality. This document has been electronically signed by: Sav Fried MD on 10/29/2024 21:59:12
--- NOTE | 2024-10-29 20:35 | ED_ITS ---
HPI - Extremity Injury (Lower) General Chief Complaint: Extremity Injury, Lower Stated Complaint: left ankle broken? Time Seen by Provider: 10/29/24 21:27 History of Present Illness ED Provider: Jackson RAMACHANDRAN Narrative: The patient is a 24-year-old male who was at a trampoline park. He was jumping on the trampoline. After 1 jump he came down and twisted his left ankle. He has developed swelling to the lateral aspect of the left ankle and he came to the emergency room for evaluation. No other injuries. He indicates that he has some pain on the lateral aspect of the left lower leg as well as the left ankle. Related Data Previous Rx's ?Medication ?Instructions ?Recorded sulfamethoxazole 800 1 tab PO BID 5 days #10 tabs 02/10/23 mg-trimethoprim 160 mg tablet (Bactrim DS) polymyxin B sulfate 10,000 1 drp ophthalmic (eye) Q3H 7 days 02/28/23 unit-trimethoprim 1 mg/mL eye #10 mL drops (Polytrim) amoxicillin 875 mg-potassium 1 tab PO BID 10 days #20 tabs 03/04/23 clavulanate 125 mg tablet amoxicillin 875 mg-potassium 1 tab PO BID 7 days #14 t abs 06/20/23 clavulanate 125 mg tablet guaifenesin 1,200 mg tablet, 1,200 mg PO BID #14 tabs 08/28/23 extended release 12 hr ibuprofen 600 mg tablet 600 mg PO Q6H PRN pain #30 t abs 10/10/23 prednisone 20 mg tablet 40 mg (2 x 20 mg) PO DAILY # 10 tabs 10/10/23 acetaminophen 500 mg tablet 500 mg PO Q6H PRN pain #30 tabs 04/17/24 (Tylenol Extra Strength) ibuprofen 600 mg tablet 600 mg PO Q6H PRN pain #30 t abs 04/17/24 ondansetron 4 mg disintegrating 4 mg PO Q6H PRN nausea and 04/17/24 tablet vomiting #10 tabs oseltamivir 75 mg capsule (Tamiflu) 75 mg PO BID 5 day s #10 caps 04/17/24 ondansetron 4 mg disintegrating 4 mg PO Q8H PRN nausea and 05/04/24 tablet vomiting #10 tabs acetaminophen 500 mg capsule 1,000 mg (2 x 500 mg) PO Q8H PRN 10/29/24 fever or pain #14 caps ibuprofen 400 mg tablet 400 mg PO Q6H PRN pain #14 t abs 10/29/24 Allergies Allergy/AdvReac Type Severity Reaction Status Date / Time No Known Allergies Allergy Verified 10/29/24 20:40 Review of Systems Review of Systems: Yes all other systems are reviewed and are negative [facility] Past Medical History Medical History No known health problems Social History Social History Household Members: Family Alcohol intake: never Patient Tobacco Use Status: Never used Tobacco Tobacco use type: Cigarette Substance Use Type: Marijuana Advance Directives: No Advance Directives Information Provided: No Physical Exam Vital Signs: Vital Signs: Last Vital Signs Temp 97.9 F 10/29/24 20:39 Pulse 72 10/29/24 20:39 Resp 18 10/29/24 20:39 BP 152/77 H 10/29/24 20:39 Pulse Ox 99 10/29/24 20:39 O2 Del Method Room Air 10/29/24 20:39 BMI result Body Mass Index 35.7 Const: General: cooperative, healthy appearing, no acute distress, well developed, alert and awake HEENT: Other: The face is symmetrical. ?Mucous membranes moist. Eyes: General: appearance normal, both eyes and all related structures Neck: Other: Moving his neck easily Resp: Effort & Inspection: normal respiratory effort Skin: Other: There is significant soft tissue swelling to the skin overlying the left lateral malleolus. The skin is intact. Neuro: Other: The patient is awake and alert with a normal mental status. He has intact sensation in the left foot. He is able to wiggle the toes. Extrem: Other: The patient has significant swelling to the left lateral malleolus. The medial malleolus is not swollen. He is quite tender on the lateral side. He also has some tenderness along the course of the left lower leg but there was no obvious deformity. Course Course Course Narrative: This is a RME preformed in triage by Christi Palm PA-C. Date: 10/29/2024, time 836 pm. Patient presents with left ankle trauma. [facility] [employer] in [place] jumping on a trampoline when he landed causing an inversion injury to his left ankle with instant pain. He has soft tissue swelling and tenderness to palpation over the left lateral malleolus and distal lateral lower extremity. Compartments are soft DTRs are intact sensation is intact cap refill less than 3 seconds limited range of motion of ankle no knee tenderness or toe tenderness. No obvious ecchymosis Patient has had several sprains to this ankle before in the past but no breaks this feels different to him. He has iced it for the last 20 minutes he has not taken anything for the pain came right here Work UP: X-rays of tib-fib and ankle left side, Tylenol given Will defer full ROS and PE to treating provider. Patient will continued to be monitored in the interim. Medications Administered Discontinued Medications Generic Name Dose Route Start Last Admin Trade Name Ron PRN Reason Stop Dose Admin Acetaminophen 975 mg 10/29/24 20:39 10/29/24 20:44 Acetaminophen 325 Mg Tablet PO 10/29/24 20:40 975 mg ONCE ONE Administration Ketorolac Tromethamine 30 mg 10/29/24 21:46 10/29/24 21:51 Ketorolac Tromethamine 30 Mg/Ml Vial IM 10/29/24 21:47 30 mg ONCE ONE Administration Medical Decision Making Medical Decision Making MDM Narrative: The patient is an ordinarily healthy 24-year-old who injured his left ankle while jumping on a trampoline. He had an inversion-type injury. He has swelling to the lateral malleolus. He has negative x-rays of the tibia and fibula and of the left ankle. He will be given a tall orthopedic boot and crutches. He is advised to stay off the foot, keep the foot elevated, ibuprofen and acetaminophen as needed for pain, follow up with Orthopedics. Discharge Plan Discharge Clinical Impression: Left ankle sprain Patient Disposition: Home, Self-Care Instructions: Ankle Sprain (ED) Additional Instructions: I do not see any sign of a fracture on your x-rays. I believe you have a significant sprain of your left ankle. Please do your best to keep weight off the left foot. Use the orthopedic boot provided and the crutches. Use the crutches to keep weight off the left foot as much as you are able to do so. After a few days you may put some weight on the foot as long as it is not very painful. This is called ?weight-bearing as tolerated. ? You may use ibuprofen and acetaminophen as needed for pain. Keep the foot elevated whenever you are resting. Please contact the orthopedic office for a follow up appointment. Return to the emergency room if significantly worse. Prescriptions: New ibuprofen 400 mg tablet 400 mg PO Q6H PRN (Reason: pain) Qty: 14 0RF acetaminophen 500 mg capsule 1,000 mg PO Q8H PRN (Reason: fever or pain) Qty: 14 0RF No Action guaifenesin 1,200 mg tablet extended release 12hr 1,200 mg PO BID Qty: 14 0RF prednisone 20 mg tablet 40 mg PO DAILY Qty: 10 0RF ibuprofen 600 mg tablet 600 mg PO Q6H PRN (Reason: pain) Qty: 30 0RF polymyxin B sulf-trimethoprim [Polytrim] 10,000 unit- 1 mg/mL drops 1 drp ophthalmic (eye) Q3H 7 Days Qty: 10 0RF Rx Instructions: while awake; do not exceed 6 doses in 24 hours amoxicillin-pot clavulanate 875-125 mg tablet 1 tab PO BID 10 Days Qty: 20 0RF amoxicillin-pot clavulanate 875-125 mg tablet 1 tab PO BID 7 Days Qty: 14 0RF oseltamivir [Tamiflu] 75 mg capsule 75 mg PO BID 5 Days Qty: 10 0RF ibuprofen 600 mg tablet 600 mg PO Q6H PRN (Reason: pain) Qty: 30 0RF ondansetron 4 mg tablet,disintegrating 4 mg PO Q6H PRN (Reason: nausea and vomiting) Qty: 10 0RF acetaminophen [Tylenol Extra Strength] 500 mg tablet 500 mg PO Q6H PRN (Reason: pain) Qty: 30 0RF ondansetron 4 mg tablet,disintegrating 4 mg PO Q8H PRN (Reason: nausea and vomiting) Qty: 10 0RF sulfamethoxazole-trimethoprim [Bactrim DS] 800-160 mg tablet 1 tab PO BID 5 Days Qty: 10 0RF Referrals: [facility] [Provider Group] Print Language: Turkmen
[2024-10-29 20:39] VITALS: BP 152/77; PULSE 72; RESP 18; TEMP 36.6; O2SAT 99; BMI 35.7
--- OUTSIDE RECORDS SUMMARY | 2024-10-29 21:12 | XMS_ITS | Encounter Summary ---
Author Organization [facility] Address [address] [place] [id number] Phone Care Team Providers Care Fine Arts Teacher Name Role Phone Jacob Grewal MD Primary Care Provider [phone] Encounter Details Date Type Department Care Team (Late st Contact Info) Description 05/20/2012 Documentation [facility] [place] Family Medicine [address] [place], [place] [id number] Family Medicine, Physician [address], [place] [phone] Social History Tobacco Use Types Packs/Day Years Used Date Smoking Tobacco: Never Assessed Sex and Gender Information Value Date Recorded Sex Assigned at Not on file Legal Sex Male 5:06 PM EDT Gender Identity Not on file Sexual Orientation Not on file documented as of this encounter Plan of Treatment Not on file documented as of this encounter Visit Diagnoses Not on filedocumented in this encounter Care Teams Fine Arts Teacher Relationship Specialty Start Date End Date Jacob Grewal MD [address] [place] [address] PCP - General 11/28/16 09/18/22 documented as of this encounter
[2024-10-29 22:24] VITALS: BP 152/77; PULSE 72; RESP 18; TEMP 36.6; O2SAT 99
== END 2024-10-29 22:25 | disposition home or self-care (01) ==
PROVIDERS: Emergency Provider Emergency Medicine
DX: S93.402A Sprain of unspecified ligament of left ankle, initial encounter (principal); Y93.44 Activity, trampolining; Y93.9 Activity, unspecified; Y92.9 Unspecified place or not applicable; Y99.9 Unspecified external cause status
CPT/HCPCS: 73590; 73610; 96372; 99283; 99284; J1885

== ENCOUNTER → 2024-10-29 20:39 | Outpatient (BNV) | payer MEDICAID, SELFPAY | PROVIDERS: Emergency Provider Emergency Medicine; Visit Provider Radiology Diagnostic Radiology | DX: M79.662 Pain in left lower leg (principal) | CPT/HCPCS: 73590; 73610 ==

== ENCOUNTER 2024-12-13 09:12 | Emergency (ER) | payer OTHER, SELFPAY ==
[2024-12-13 09:23] VITALS: BP 181/66; PULSE 77; RESP 18; TEMP 37; O2SAT 98; BMI 34.1
--- NOTE | 2024-12-13 10:09 | ED.GENADULT ---
HPI - General Adult General Chief complaint: Nausea/Vomiting/Diarrhea Stated complaint: Vomiting Time Seen by Provider: 12/13/24 09:44 Source: patient, RN notes reviewed and old records reviewed Mode of arrival: ambulatory Limitations: no limitations History of Present Illness ED Provider: Radha RAMACHANDRAN narrative: 24-year-old male presents for evaluation of vomiting. The patient denies any medical history. He reports that he woke up at 4:00 a.m. this morning with several episodes of vomiting. He states he vomited about 5 times and has not vomited since about 5:00 a.m.. He denies any abdominal pain whatsoever pain Denies any recent travel outside [facility] pain Denies any sick contacts. He is not on any medications He has no other complaints or concerns at this time He does report that he occasionally feels as if he has acid reflux but does not carry diagnosis of GERD Related Data Previous Rx's ?Medication ?Instructions ?Recorded sulfamethoxazole 800 1 tab PO BID 5 days #10 tabs 02/10/23 mg-trimethoprim 160 mg tablet (Bactrim DS) polymyxin B sulfate 10,000 1 drp ophthalmic (eye) Q3H 7 days 02/28/23 unit-trimethoprim 1 mg/mL eye #10 mL drops (Polytrim) amoxicillin 875 mg-potassium 1 tab PO BID 10 days #20 tabs 03/04/23 clavulanate 125 mg tablet amoxicillin 875 mg-potassium 1 tab PO BID 7 days #14 tabs 06/20/23 clavulanate 125 mg tablet guaifenesin 1,200 mg tablet, 1,200 mg PO BID #14 tabs 08/28/23 extended release 12 hr ibuprofen 600 mg tablet 600 mg PO Q6H PRN pain #30 tabs 10/10/23 prednisone 20 mg tablet 40 mg (2 x 20 mg) PO DAILY #10 tabs 10/10/23 acetaminophen 500 mg tablet 500 mg PO Q6H PRN pain #30 tabs 04/17/24 (Tylenol Extra Strength) ibuprofen 600 mg tablet 600 mg PO Q6H PRN pain #30 tabs 04/17/24 ondansetron 4 mg disintegrating 4 mg PO Q6H PRN nausea and 04/17/24 tablet vomiting #10 tabs oseltamivir 75 mg capsule (Tamiflu) 75 mg PO BID 5 days #10 caps 04/17/24 ondansetron 4 mg disintegrating 4 mg PO Q8H PRN nausea and 05/04/24 tablet vomiting #10 tabs acetaminophen 500 mg capsule 1,000 mg (2 x 500 mg) PO Q8H PRN 10/29/24 fever or pain #14 caps ibuprofen 400 mg tablet 400 mg PO Q6H PRN pain #14 tabs 10/29/24 Allergies Allergy/AdvReac Type Severity Reaction Status Date / Time No Known Allergies Allergy Verified 12/13/24 09:24 Review of Systems Constitutional: Constitutional: Denies body ache(s), Denies chills and Denies fever(s) Eyes: Eyes: Denies blurry vision ENT: Denies vertigo Cardiovascular: Cardiovascular: Denies chest pain and Denies dyspnea on exertion Respiratory: Respiratory: Denies cough and Denies dyspnea on exertion Gastrointestinal: Gastrointestinal: Denies abdominal pain, Denies melena, Denies hematochezia, Reports nausea, Reports vomiting and Denies hematemesis Musculoskeletal: Musculoskeletal: Denies back pain Integumentary/Breasts: Skin/Breast: Denies rash Neurologic: Denies vertigo Psychiatric: Psychiatric: Denies anxiety PMFSH Past Medical History Medical History No known health problems Social History Social History Household Members: Family Alcohol intake: never Patient Tobacco Use Status: Never used Tobacco Tobacco use type: Cigarette Smoked in Last 30 Days: No Use of substances other than those prescribed or required for medical reasons: No Substance Use Type: Marijuana Advance Directives: No Advance Directives Information Provided: No Physical Exam ED Vital Signs: Vital Signs - 24 hr 12/13/24 09:23 Temperature 98.6 F Pulse Rate 77 Respiratory Rate 18 Blood Pressure 181/66 H Pulse Oximetry 98 Oxygen Delivery Method Room Air BMI result Body Mass Index 34.1 Const General: healthy appearing, comfortable, no acute distress, alert and awake Nutritional Appearance: well nourished Orientation/consciousness: patient oriented x3 HENMT Head: Yes normocephalic and Yes atraumatic Eyes Eyelids: Yes eyelids normal Conjunctivae: conjunctivae normal Sclerae: sclerae normal Corneas: corneas normal Pupils: Equal, round and reactive pupils present EOM: EOMs intact bilaterally Neck Neck: Yes full ROM Resp Effort & Inspection: normal respiratory effort, able to speak in complete sentences and not labored GI Inspection: No distended Palpation (GI): Soft to palpation, not firm, nontender, no guarding and not rigid Skin General skin exam: no rashes or lesions noted and elasticity normal Neuro General: patient oriented x3 Cranial nerves: Yes Equal, round and reactive pupils present and Yes Bilaterally intact EOM present Cognition (Neuro): normal cognition Extrem Other: Moving all extremities well without any obvious deformities Medical Decision Making Medical Decision Making MDM Narrative: 24-year-old male with no Significant past medical history presents for evaluation of vomiting that started at 4 in his morning. He reports that he vomited about 5 times, he has no abdominal pain or tenderness on exam. He is quite well appearing. He is noted to be hypertensive but denies chest pain as well. Plan to repeat blood pressure. We will check basic labs and urinalysis that we will defer imaging as he has no abdominal pain or tenderness. Less likely cholelithiasis, acute cholecystitis or acute appendicitis. The patient likely has either GERD or a gastroenteritis. Differential Diagnosis Differential Diagnoses: The differential diagnosis associated with the presentation includes Vomiting Gastroenteritis Peptic ulcer disease Biliary colic Cholelithiasis Pancreatitis Acute appendicitis less likely Lab Data 12/13/24 10:20 12/13/24 10:20 Labs: Lab Results 12/13/24 Range/Units 10:20 WBC 10.0 (4.8-10.8) X10*3/uL RBC 5.15 (4.60-5.80) X10*6/uL Hgb 15.9 (14.0-18.0) g/dl Hct 45.7 (42.0-52.0) % MCV 88.7 (80.0-98.0) fL MCH 30.9 (27.0-33.0) pg MCHC 34.8 (31.0-36.0) g/dl RDW 12.0 (11.0-16.0) % Plt Count 274 (160-400) X10*3/uL MPV 9.9 (9.4-12.4) fL Immature Gran % (Auto) 0.4 (0.0-0.4) % Neut % (Auto) 70.0 (45-73) % Lymph % (Auto) 22.3 (20-40) % [place] % (Auto) 5.3 (2-11) % Eos % (Auto) 1.4 (0-4) % Baso % (Auto) 0.6 (0-2) % Lymph # (Auto) 2.2 (1.2-4.9) X10*3/uL [place] # (Auto) 0.5 (0.1-1.2) X10*3/uL Eos # (Auto) 0.1 (0.0-0.4) X10*3/uL Baso # (Auto) 0.1 (0.0-0.2) X10*3/uL Abs Immat Gran (auto) 0.04 H (0.00-0.03) X10*3/uL Absolute Neuts (auto) 7.0 (2.0-8.3) x10*3/uL Absolute Nucleated RBC 0.000 (0.0-0.012) X10*3/uL Nucleated RBC % (auto) 0.0 (0.0-0.2) /100WBC Discharge Plan Discharge Clinical Impression: Vomiting Patient Disposition: Left Against Medical Advice Instructions: Acute Nausea and Vomiting (ED) Additional Instructions: You are leaving before your workup is complete. Therefore your technically leaving against medical advice. Return for new or worsening symptoms Prescriptions: No Action guaifenesin 1,200 mg tablet extended release 12hr 1,200 mg PO BID Qty: 14 0RF prednisone 20 mg tablet 40 mg PO DAILY Qty: 10 0RF ibuprofen 600 mg tablet 600 mg PO Q6H PRN (Reason: pain) Qty: 30 0RF ibuprofen 400 mg tablet 400 mg PO Q6H PRN (Reason: pain) Qty: 14 0RF acetaminophen 500 mg capsule 1,000 mg PO Q8H PRN (Reason: fever or pain) Qty: 14 0RF polymyxin B sulf-trimethoprim [Polytrim] 10,000 unit- 1 mg/mL drops 1 drp ophthalmic (eye) Q3H 7 Days Qty: 10 0RF Rx Instructions: while awake; do not exceed 6 doses in 24 hours amoxicillin-pot clavulanate 875-125 mg tablet 1 tab PO BID 10 Days Qty: 20 0RF amoxicillin-pot clavulanate 875-125 mg tablet 1 tab PO BID 7 Days Qty: 14 0RF oseltamivir [Tamiflu] 75 mg capsule 75 mg PO BID 5 Days Qty: 10 0RF ibuprofen 600 mg tablet 600 mg PO Q6H PRN (Reason: pain) Qty: 30 0RF ondansetron 4 mg tablet,disintegrating 4 mg PO Q6H PRN (Reason: nausea and vomiting) Qty: 10 0RF acetaminophen [Tylenol Extra Strength] 500 mg tablet 500 mg PO Q6H PRN (Reason: pain) Qty: 30 0RF ondansetron 4 mg tablet,disintegrating 4 mg PO Q8H PRN (Reason: nausea and vomiting) Qty: 10 0RF sulfamethoxazole-trimethoprim [Bactrim DS] 800-160 mg tablet 1 tab PO BID 5 Days Qty: 10 0RF Stand Alone Forms: Work/School Release, Against Medical Advice Print Language: Filipino
--- OUTSIDE RECORDS SUMMARY | 2024-12-13 10:14 | XMS_ITS | Encounter Summary ---
Author Organization [facility] Address [address] [place] [address] Phone Care Team Providers Care Production Line Solderer Name Role Phone Jacob Grewal MD Primary Care Provider [phone] Encounter Details Date Type Department Care Team (Late st Contact Info) Description 09/02/[address] [facility] [place] Family Medicine [address] [place], [place] [phone] Family Medicine, Physician [address] [place], [place] [phone] Social History Tobacco Use Types Packs/Day Years [...] on filedocumented in this encounter Care Teams Production Line Solderer Relationship Specialty Start Date End Date Jacob Grewal MD [address] [place] [address] PCP - General 11/28/16 09/18/22 documented as of this encounter
--- OUTSIDE RECORDS SUMMARY | 2024-12-13 10:14 | XMS_ITS | Encounter Summary ---
Author Organization [facility] Address [address] [place] [address] Phone Care Team Providers Care Media Consultant Name Role Phone Jacob Grewal MD Primary Care Provider [phone] Encounter Details Date Type Department Care Team (Late st Contact Info) Description 05/20/2012 Documentation [facility] [place] Family Medicine [address] [place], [place] [phone] Family Medicine, Physician [address], [place] [phone] Social History Tobacco Use Types Packs/Day Years [...] on filedocumented in this encounter Care Teams Media Consultant Relationship Specialty Start Date End Date Jacob Grewal MD [address] [place] [address] PCP - General 11/28/16 09/18/22 documented as of this encounter
--- OUTSIDE RECORDS SUMMARY | 2024-12-13 10:14 | XMS_ITS | Encounter Summary ---
Author Organization [facility] Address [address] [place] [address] Phone Care Team Providers Care Curator Horticultural Museum Name Role Phone Jacob Grewal MD Primary Care Provider [phone] Encounter Details Date Type Department Care Team (Late st Contact Info) Description 12/04/2016 Conversion Encounter [facility] [address] [place] [address] Social History Tobacco Use Types Packs/Day Years Used Date Smoking Tobacco: Never Comments:Never smoker Sex and Gender Information Value Date Recorded Sex Assigned at Not on file Legal Sex Male 5:06 PM EDT Gender Identity Not on file Sexual Orientation Not on file documented as of this encounter Plan of Treatment Not on file documented as of this encounter Visit Diagnoses Not on filedocumented in this encounter Care Teams Curator Horticultural Museum Relationship Specialty Start Date End Date Jacob Grewal MD [address] [place] [address] PCP - General 11/28/16 09/18/22 documented as of this encounter
--- OUTSIDE RECORDS SUMMARY | 2024-12-13 10:14 | XMS_ITS | Clinical Summary ---
Author Organization [facility] Address [address] [place] [phone] Phone Care Team Providers Care Security Police Name Role Phone Unavailable Primary Care Provider Unavailabl e Allergies No known active allergies Medications No known medications Immunizations Immunization Administration Dates Next Due DTaP 5 08/30/2003, 1,07/03/2000,04/06,01/13/2000 HPV Vaccine 9 Valent 07/25/2015,02/16/2015 HPV, Quadrivalent 12/06/2013 Hep A, ped/adol 02/16/2015,12/06/2013 Hep B, ped/adol 06/15/2001,07/03/2000,1999 Hib (PRP-T) 03/16/2001, 1,04/06/2000,01/12 IPV 08/30/2003, 1,04/06/2000,01/12 Influenza, injectable, quadrivalent 02/21/2016,1 Influenza, injectable, quadr ivalent, preservative free 03/25/2017 MMR 08/30/2003,04/06/2000 Meningococcal Conj (Menactra) MCV4P 02/16/2015,0 08/01/2010 Pneumococcal Conjugate 07/03/2000,04/06/2000, Tdap 08/01/2010 Varicella 04/27/2008,03/16/2001 Family History Medical History Relation Name Comments Migraines Mother Relation Name Status Comments Mother Alive Mother: Alive a nd well, Migraines Other Family history of ADD/ADHD Sister 1 Alive Sister: Alive a nd well, Alive and well, Alive and well Sister 2 Alive Sister: Alive a nd well, Alive and well, Alive and well Sister 3 Alive Sister: Alive a nd well, Alive and well, Alive and well Social History Tobacco Use Types Packs/Day Years Used Date Smoking Tobacco: Never Smokeless Tobacco: Never Comments:Never smoker Sex and Gender Information Value Date Recorded Sex Assigned at Not on file Legal Sex Male 5:06 PM EDT Gender Identity Not on file Sexual Orientation Not on file Last Filed Vital Signs Vital Sign Reading Time Taken Comments Blood Pressure 121/67 03/25/2017 1:48 PM EST Pulse 65 03/25/2017 1:48 PM EST Temperature 36.5 C (97.7 F) 03/25/2017 1:48 PM EST Respiratory Rate - - Oxygen Saturation - - Inhaled Oxygen Concentration - - Weight 98.3 kg (216 lb 12.8 oz) 03/25/2017 1:48 PM EST Height 168.9 cm (5' 6.5 ) 03/25/2017 1:48 PM EST Body Mass Index 34.47 03/25/2017 1:48 PM EST Plan of Treatment Health Maintenance Due Date Last Done Comments DTaP,Tdap,and Td Vaccines (7 - Td or Tdap) 08/01/2020 08/01/2010, 08/30/2003, 03/16/2001, Additional history exists COVID-19 Vaccine ( season) 2023 Influenza Vaccines (#1) 2024 03/25/20 17, 02/21/2016, 02/16/2015 Pneumococcal Vaccine Completed 07/03/2000, 04/06/2000, 01/13/2000 HIB Vaccines Completed 03/16/2001, 06/18, 04/06/2000, Additional history exists Hepatitis B Vaccines Completed 06/15/2001, 07/03/2000, 1999 IPV Vaccines Completed 08/30/2003, 02/19, 04/06/2000, Additional history exists MMR Vaccines Completed 08/30/2003, 04/06/2000 Varicella Vaccines Completed 04/27/2008, 03/16/2001 Hepatitis A Vaccines Completed 02/16/2015, 12/07/19 14 Meningococcal Vaccine Completed 02/16/2015, 011 HPV Vaccines Completed 07/25/2015, 01/20, 12/06/2013 Men B Vaccine Aged Out No longer claudia moss based on patient's age to complete this topic [place] [address] [place] [address] NON PCC
[2024-12-13 10:23] LABS: MANUAL DIFF FLAG NO
[2024-12-13 10:26] LABS: Hematocrit 45.7 % (42.0-52.0); Hemoglobin 15.9 g/dl (14.0-18.0); Imm Gran Abs Auto 0.04 X10*3/uL (0.00-0.03); Imm Gran Pct Auto 0.4 % (0.0-0.4); Lymphocytes Absolute Auto 2.2 X10*3/uL (1.2-4.9); Mean Corpuscular HGB Conc 34.8 g/dl (31.0-36.0); Mean Corpuscular Hemoglobin 30.9 pg (27.0-33.0); Mean Corpuscular Volume 88.7 fL (80.0-98.0); NRBC Abs Auto 0.000 X10*3/uL (0.0-0.012); NRBC Pct Auto 0.0 /100WBC (0.0-0.2); Platelet Count 274 X10*3/uL (160-400); Red Blood Count 5.15 X10*6/uL (4.60-5.80); White Blood Count 10.0 X10*3/uL (4.8-10.8)
[2024-12-13 10:36] VITALS: BP 181/66; PULSE 77; RESP 18; TEMP 37; O2SAT 98
[2024-12-13 10:40] LABS: Alanine Aminotransferase 45 U/L (0-40); Albumin Level 4.8 g/dL (3.5-5.0); Alkaline Phosphatase 91 U/L (39-117); Anion Gap 13 (12-20); Aspartate Amino Transferase 59 U/L (5-37); Blood Urea Nitrogen 13 mg/dL (9-16); Calcium 9.5 mg/dL (8.4-10.2); Carbon Dioxide 25 mmol/L (22-29); Chloride 104 mmol/L (96-108); Creatinine Clr Calc Pharmacy 150.1; Estimated Glomerular Filt Rate > 60; Lipase 10 U/L (8-78); Potassium 4.2 mmol/L (3.3-5.1); Sodium 138 mmol/L (135-145); Total Protein 7.9 g/dL (6.5-8.0)
[2024-12-13 10:48] LABS: COVID-19 Test Negative (Negative); IDNOW Serial# 58CA691E
== END 2024-12-13 10:37 | disposition left against medical advice (07) ==
PROVIDERS: Physician Assistant; Emergency Provider Emergency Medicine
DX: R11.2 Nausea with vomiting, unspecified (principal); R19.7 Diarrhea, unspecified; Z53.29 Procedure and treatment not carried out because of patient's decision for other reasons
CPT/HCPCS: 80053; 83690; 85025; 87635; 99284

== ENCOUNTER 2025-01-03 10:08 | Emergency (ER) | payer OTHER, SELFPAY ==
--- NOTE | ~2025-01-03 | CT_ITS ---
EXAMINATION: CT HEAD WITHOUT CONTRAST CLINICAL INFORMATION: headache, non focal, atraumatic COMPARISON: None available. TECHNIQUE: Contiguous axial imaging was performed from the skull base to vertex without intravenous administration of contrast. This CT examination was performed using dose optimization techniques as appropriate, variously including the following: *Automated exposure control *Adjustment of mA and/or kV according to patient size (this includes techniques or standardized protocols for targeted exams where dose is matched to indication/reason for exam; i.e. extremities or head) *Use of iterative reconstruction technique DLP: 744 mGY*cm FINDINGS: There is no acute ischemic change. There is no intracranial hemorrhage. There is no mass-effect or midline shift. Basal cisterns and ventricles are within normal limits for age/cerebral volume. Orbits are symmetrical and unremarkable. Mild mucosal thickening is present in the ethmoid air cells. There is a small mucous retention cyst in the anterior floor of the right maxillary sinus. There are no bony abnormalities. CT/CT head/brain wo IV con IMPRESSION: No acute intracranial abnormality. Mild ethmoid sinusitis. Electronically signed by: Todd Martinez MD 01/03/2025 12:56 PM EDT
[2025-01-03 10:32] VITALS: BP 131/69; PULSE 69; RESP 16; TEMP 36.9; O2SAT 98; BMI 37.1
--- NOTE | 2025-01-03 10:35 | ED.HA ---
HPI - Headache General Chief Complaint: Headache Stated Complaint: Headache, fever Time Seen by Provider: 01/03/25 12:01 Related Data Previous Rx's ?Medication ?Instructions ?Recorded sulfamethoxazole 800 1 tab PO BID 5 days #10 tabs 02/10/23 mg-trimethoprim 160 mg tablet (Bactrim DS) polymyxin B sulfate 10,000 1 drp ophthalmic (eye) Q3H 7 days 02/28/23 unit-trimethoprim 1 mg/mL eye #10 mL drops (Polytrim) amoxicillin 875 mg-potassium 1 tab PO BID 10 days #20 tabs 03/04/23 clavulanate 125 mg tablet amoxicillin 875 mg-potassium 1 tab PO BID 7 days #14 tabs 06/20/23 clavulanate 125 mg tablet guaifenesin 1,200 mg tablet, 1,200 mg PO BID #14 tabs 08/28/23 extended release 12 hr ibuprofen 600 mg tablet 600 mg PO Q6H PRN pain #30 tabs 10/10/23 prednisone 20 mg tablet 40 mg (2 x 20 mg) PO DAILY #10 tabs 10/10/23 acetaminophen 500 mg tablet 500 mg PO Q6H PRN pain #30 tabs 04/17/24 (Tylenol Extra Strength) ibuprofen 600 mg tablet 600 mg PO Q6H PRN pain #30 tabs 04/17/24 ondansetron 4 mg disintegrating 4 mg PO Q6H PRN nausea and 04/17/24 tablet vomiting #10 tabs oseltamivir 75 mg capsule (Tamiflu) 75 mg PO BID 5 days #10 caps 04/17/24 ondansetron 4 mg disintegrating 4 mg PO Q8H PRN nausea and 05/04/24 tablet vomiting #10 tabs acetaminophen 500 mg capsule 1,000 mg (2 x 500 mg) PO Q8H PRN 10/29/24 fever or pain #14 caps ibuprofen 400 mg tablet 400 mg PO Q6H PRN pain #14 tabs 10/29/24 sumatriptan succinate 50 mg tablet See Rx Instructions PO .COMPLEX #7 01/03/25 tabs Allergies Allergy/AdvReac Type Severity Reaction Status Date / Time No Known Allergies Allergy Verified 01/03/25 10:35 [facility] Past Medical History Medical History No known health problems Social History Social History Household Members: Family Alcohol intake: never Patient Tobacco Use Status: Never used Tobacco Tobacco use type: Cigarette Substance Use Type: Marijuana Advance Directives: No Advance Directives Information Provided: No Physical Exam Vital Signs: Vital Signs: Last Vital Signs Temp 98.2 F 01/03/25 13:16 Pulse 55 01/03/25 13:16 Resp 16 01/03/25 13:16 BP 110/42 L 01/03/25 13:16 Pulse Ox 98 01/03/25 13:16 O2 Del Method Room Air 01/03/25 13:16 BMI result Body Mass Index 37.1 Course Course Course Narrative: This is an RME: Additional HPI, ROS, PE not included below will be deferred to primary provider. RME assessment and note performed by: Delicia Alas PA-C This is a [id number]-tus-male who presents emergency department with concerns of headache. Reporting that he has no history of migraines. Neuros intact. Pt well appearing, speaking on his cell phone during triage. Vitals stable Plan: Viral swabs Reevaluation(s) Reevaluation #1: duplicate chart Medications Administered Discontinued Medications Generic Name Dose Route Start Last Admin Trade Name Ron PRN Reason Stop Dose Admin Acetaminophen 975 mg 01/03/25 12:32 01/03/25 12:46 Acetaminophen 325 Mg Tablet PO 01/03/25 12:33 975 mg ONCE ONE Administration Dexamethasone 4 mg 01/03/25 12:32 01/03/25 12:46 Dexamethasone 4 Mg Tablet PO 01/03/25 12:33 4 mg ONCE ONE Administration Ketorolac Tromethamine 30 mg 01/03/25 12:32 01/03/25 12:46 Ketorolac Tromethamine 30 Mg/Ml Vial IM 01/03/25 12:33 30 mg ONCE ONE Administration Metoclopramide HCl 10 mg 01/03/25 12:32 01/03/25 12:45 Metoclopramide Hcl 10 Mg/2 Ml Vial IM 01/03/25 12:33 10 mg ONCE ONE Administration Medical Decision Making Lab Data 01/03/25 12:16 01/03/25 12:16 Labs: Lab Results 01/03/25 01/03/25 Range/Units 10:49 12:16 WBC 10.0 (4.8-10.8) X10*3/uL RBC 4.62 (4.60-5.80) X10*6/uL Hgb 14.6 (14.0-18.0) g/dl Hct 41.5 L (42.0-52.0) % MCV 89.8 (80.0-98.0) fL MCH 31.6 (27.0-33.0) pg MCHC 35.2 (31.0-36.0) g/dl RDW 12.8 (11.0-16.0) % Plt Count 241 (160-400) X10*3/uL MPV 10.5 (9.4-12.4) fL Immature Gran % (Auto) 0.5 H (0.0-0.4) % Neut % (Auto) 60.7 (45-73) % Lymph % (Auto) 28.7 (20-40) % [place] % (Auto) 5.3 (2-11) % Eos % (Auto) 4.1 H (0-4) % Baso % (Auto) 0.7 (0-2) % Lymph # (Auto) 2.9 (1.2-4.9) X10*3/uL [place] # (Auto) 0.5 (0.1-1.2) X10*3/uL Eos # (Auto) 0.4 (0.0-0.4) X10*3/uL Baso # (Auto) 0.1 (0.0-0.2) X10*3/uL Abs Immat Gran (auto) 0.05 H (0.00-0.03) X10*3/uL Absolute Neuts (auto) 6.1 (2.0-8.3) x10*3/uL Absolute Nucleated RBC 0.000 (0.0-0.012) X10*3/uL Nucleated RBC % (auto) 0.0 (0.0-0.2) /100WBC Sodium 143 (135-145) mmol/L Potassium 4.3 (3.3-5.1) mmol/L Chloride 111 H (96-108) mmol/L Carbon Dioxide 28 (22-29) mmol/L Anion Gap 8 L (12-20) BUN 7 L (9-16) mg/dL Creatinine 0.71 (0.5-1.4) mg/dL Estim Creat Clear Calc 192.0 Estimated GFR > 60 Random Glucose 82 (60-115) mg/dL Calcium 9.0 (8.4-10.2) mg/dL Total Bilirubin 0.5 (0.0-1.0) mg/dL AST 31 (5-37) U/L ALT 37 (0-40) U/L Alkaline Phosphatase 71 (39-117) U/L Total Protein 6.7 (6.5-8.0) g/dL Albumin 4.1 (3.5-5.0) g/dL COVID-19 (CHANDRA) Negative (Negative) COVID-19 Clin Com See Note Influenza Type A (BERNICE) Negative (Negative) Influenza Type B (BERNICE) Negative (Negative) Influenza A & B Note See Note Discharge Plan Discharge Clinical Impression: Headache Patient Disposition: Home, Self-Care Additional Instructions: DISCHARGE DIAGNOSES: Headache HISTORY OF PRESENTATION: ?Intermittent headaches, frontal with worsening over the past few months EMERGENCY DEPARTMENT COURSE,TESTS, TREATMENTS: While in the ED today you had a CT scan of the brain you received multiple medications including Tylenol, dexamethasone, ketorolac, metoclopramide DISCHARGE MEDICATIONS: ?We have prescribed an as needed medication please use only as needed for significant migraine after attempting ibuprofen Tylenol and oral hydration FOLLOW-UP: ?Call your primary or general physician soon as possible to discuss your symptoms, your ED visit and to discuss follow up plans Neurology INSTRUCTIONS ?& RETURN PRECAUTIONS: If any symptoms change first call your primary physician, if it is after-hours your primary doctors office should have a provider multi operation machine operator you can speak with. If the symptoms are severe or very concerning to you then call 911 or return to the ED. Return for severe worsening headache, neck stiffness, high fevers confusion and other severe symptoms we discussed Eduardo Contreras MD Emergency Physician [facility] Prescriptions: New sumatriptan succinate 50 mg tablet See Rx Instructions .ROUTE .COMPLEX Qty: 7 0RF Rx Instructions: take 1 tab at onset of headache; if no relief may repeat 1 tab after at least 2 hrs; max = 4 tabs/24 hr No Action guaifenesin 1,200 mg tablet extended release 12hr 1,200 mg PO BID Qty: 14 0RF prednisone 20 mg tablet 40 mg PO DAILY Qty: 10 0RF ibuprofen 600 mg tablet 600 mg PO Q6H PRN (Reason: pain) Qty: 30 0RF ibuprofen 400 mg tablet 400 mg PO Q6H PRN (Reason: pain) Qty: 14 0RF acetaminophen 500 mg capsule 1,000 mg PO Q8H PRN (Reason: fever or pain) Qty: 14 0RF polymyxin B sulf-trimethoprim [Polytrim] 10,000 unit- 1 mg/mL drops 1 drp ophthalmic (eye) Q3H 7 Days Qty: 10 0RF Rx Instructions: while awake; do not exceed 6 doses in 24 hours amoxicillin-pot clavulanate 875-125 mg tablet 1 tab PO BID 10 Days Qty: 20 0RF amoxicillin-pot clavulanate 875-125 mg tablet 1 tab PO BID 7 Days Qty: 14 0RF oseltamivir [Tamiflu] 75 mg capsule 75 mg PO BID 5 Days Qty: 10 0RF ibuprofen 600 mg tablet 600 mg PO Q6H PRN (Reason: pain) Qty: 30 0RF ondansetron 4 mg tablet,disintegrating 4 mg PO Q6H PRN (Reason: nausea and vomiting) Qty: 10 0RF acetaminophen [Tylenol Extra Strength] 500 mg tablet 500 mg PO Q6H PRN (Reason: pain) Qty: 30 0RF ondansetron 4 mg tablet,disintegrating 4 mg PO Q8H PRN (Reason: nausea and vomiting) Qty: 10 0RF sulfamethoxazole-trimethoprim [Bactrim DS] 800-160 mg tablet 1 tab PO BID 5 Days Qty: 10 0RF Referrals: [facility] [place] [facility] [Provider Group, Neurology] Stand Alone Forms: Work/School Release Interventions: ED Discharge Assessment Last Done: 01/03/25 13:16 Discharge Date/Time: 01/03/25 13:17 Print Language: Icelandic
[2025-01-03 11:29] LABS: COVID-19 Test Negative (Negative); IDNOW Serial# 08D9AD1C
[2025-01-03 11:57] LABS: IDNOW Serial# 55D5AD1C; Influenza B2 Negative (Negative)
[2025-01-03 12:12] VITALS: BP 110/42; PULSE 55; RESP 16; TEMP 36.8; O2SAT 98
[2025-01-03 12:21] LABS: MANUAL DIFF FLAG NO
[2025-01-03 12:24] LABS: Hematocrit 41.5 % (42.0-52.0); Hemoglobin 14.6 g/dl (14.0-18.0); Imm Gran Abs Auto 0.05 X10*3/uL (0.00-0.03); Imm Gran Pct Auto 0.5 % (0.0-0.4); Lymphocytes Absolute Auto 2.9 X10*3/uL (1.2-4.9); Mean Corpuscular HGB Conc 35.2 g/dl (31.0-36.0); Mean Corpuscular Hemoglobin 31.6 pg (27.0-33.0); Mean Corpuscular Volume 89.8 fL (80.0-98.0); NRBC Abs Auto 0.000 X10*3/uL (0.0-0.012); NRBC Pct Auto 0.0 /100WBC (0.0-0.2); Platelet Count 241 X10*3/uL (160-400); Red Blood Count 4.62 X10*6/uL (4.60-5.80); White Blood Count 10.0 X10*3/uL (4.8-10.8)
--- NOTE | 2025-01-03 12:43 | ED.HA ---
HPI - Headache General Chief Complaint: Headache Stated Complaint: Headache, fever Time Seen by Provider: 01/03/25 12:01 History of Present Illness ED Provider: Eduardo Contreras MD HPI Narrative: 24-year-old male otherwise healthy no significant medical or surgical history no daily meds. He is an active marijuana smoker no tobacco or alcohol. Reports increasing frequency of frontal sharp headaches lasting about 2 days at a time without head trauma this is going on for several months currently experiencing 1 now. Now experiencing some very mild photophobia malaise phonophobia. Denies fever tick bite, rash prior TBI. No significant personal family history of migraine or neurologic problem. Denies focal neurologic deficits MD elicited complaint: headache Related Data Previous Rx's ?Medication ?Instructions ?Recorded sulfamethoxazole 800 1 tab PO BID 5 days #10 tabs 02/10/23 mg-trimethoprim 160 mg tablet (Bactrim DS) polymyxin B sulfate 10,000 1 drp ophthalmic (eye) Q3H 7 days 02/28/23 unit-trimethoprim 1 mg/mL eye #10 mL drops (Polytrim) amoxicillin 875 mg-potassium 1 tab PO BID 10 days #20 tabs 03/04/23 clavulanate 125 mg tablet amoxicillin 875 mg-potassium 1 tab PO BID 7 days #14 tabs 06/20/23 clavulanate 125 mg tablet guaifenesin 1,200 mg tablet, 1,200 mg PO BID #14 tabs 08/28/23 extended release 12 hr ibuprofen 600 mg tablet 600 mg PO Q6H PRN pain #30 tabs 10/10/23 prednisone 20 mg tablet 40 mg (2 x 20 mg) PO DAILY #10 tabs 10/10/23 acetaminophen 500 mg tablet 500 mg PO Q6H PRN pain #30 tabs 04/17/24 (Tylenol Extra Strength) ibuprofen 600 mg tablet 600 mg PO Q6H PRN pain #30 tabs 04/17/24 ondansetron 4 mg disintegrating 4 mg PO Q6H PRN nausea and 04/17/24 tablet vomiting #10 tabs oseltamivir 75 mg capsule (Tamiflu) 75 mg PO BID 5 days #10 caps 04/17/24 ondansetron 4 mg disintegrating 4 mg PO Q8H PRN nausea and 05/04/24 tablet vomiting #10 tabs acetaminophen 500 mg capsule 1,000 mg (2 x 500 mg) PO Q8H PRN 10/29/24 fever or pain #14 caps ibuprofen 400 mg tablet 400 mg PO Q6H PRN pain #14 tabs 10/29/24 sumatriptan succinate 50 mg tablet See Rx Instructions PO .COMPLEX #7 01/03/25 tabs Allergies Allergy/AdvReac Type Severity Reaction Status Date / Time No Known Allergies Allergy Verified 01/03/25 10:35 [facility] Past Medical History Medical History No known health problems Social History Social History Household Members: Family Alcohol intake: never Patient Tobacco Use Status: Never used Tobacco Tobacco use type: Cigarette Substance Use Type: Marijuana Advance Directives: No Advance Directives Information Provided: No Physical Exam Exam: Exam: GENERAL: Well appearing. No apparent distress. Alert. HEAD/NECK: Normal to inspection. Neck supple. No cervical lymphadenopathy. EYES: Normal to inspection. Sclera non-icteric. ENMT: External nose normal. RESPIRATORY: Respiratory effort normal. Lungs clear to auscultation bilaterally. CARDIOVASCULAR: Regular rate. Normal rhythm. No murmur. No rubs. GI: Soft, non-tender, non-distended. No rebound or guarding. No masses palpable. No hepatosplenomegaly. SKIN: No jaundice. NEUROLOGICAL: Alert. PSYCHIATRIC: Alert. Appearance appropriate for situation. Attitude cooperative. OTHER: Comprehensive Neuro exam: Face symmetric, tongue midline, strong symmetric eye closure, pupils symmetric and reactive to light, intact sensation to the face throughout, intact strong face deviation and shoulder shrug. Negative meningismus testing. No severe overt gross photophobia no ataxia Sensation intact to light touch throughout 5 out of 5 strength in bilateral upper extremities, 5 and 5 strength in lower extremities Vital Signs: Vital Signs: Last Vital Signs Temp 98.2 F 01/03/25 13:16 Pulse 55 01/03/25 13:16 Resp 16 01/03/25 13:16 BP 110/42 L 01/03/25 13:16 Pulse Ox 98 01/03/25 13:16 O2 Del Method Room Air 01/03/25 13:16 BMI result Body Mass Index 37.1 Medications Administered Discontinued Medications Generic Name Dose Route Start Last Admin Trade Name Freq PRN Reason Stop Dose Admin Acetaminophen 975 mg 01/03/25 12:32 01/03/25 12:46 Acetaminophen 325 Mg Tablet PO 01/03/25 12:33 975 mg ONCE ONE Administration Dexamethasone 4 mg 01/03/25 12:32 01/03/25 12:46 Dexamethasone 4 Mg Tablet PO 01/03/25 12:33 4 mg ONCE ONE Administration Ketorolac Tromethamine 30 mg 01/03/25 12:32 01/03/25 12:46 Ketorolac Tromethamine 30 Mg/Ml Vial IM 01/03/25 12:33 30 mg ONCE ONE Administration Metoclopramide HCl 10 mg 01/03/25 12:32 01/03/25 12:45 Metoclopramide Hcl 10 Mg/2 Ml Vial IM 01/03/25 12:33 10 mg ONCE ONE Administration Medical Decision Making Medical Decision Making MDM Narrative: Medical Decision Makin-year-old male with a headache increasing in frequency over the past few months. No thunderclap. No focal deficits no objective meningismus on examination. Photophobia with frontal headache and recurrence mostly suggestive of migrainous but could be tension or dehydration or stress. Given the severity and increasing frequency and unclear ability to follow up soon I think it is reasonable to get a noncontrast CT to exclude mass or hemorrhage which is very unlikely. More likely this is migrainous we will try multimodal analgesia cocktail oral hydration. Preliminary Favored Differential Diagnosis: Headache: Tension, stress, migraine, dehydration among additional considered etiologies Testing Interpreted Independently: ?See below for details Radiology or Lab testing Results Reviewed: ?See below for details Consults: ?See below for details Independent Historians/External Chart Reviews: ?See below for details Social Determinants of Health Impacting MDM/Planning: ?See below for details Lab Data MDM Lab Attestation statement: I reviewed the patient's lab results. 01/03/25 12:16 01/03/25 12:16 Labs: Lab Results 01/03/25 01/03/25 Range/Units 10:49 12:16 WBC 10.0 (4.8-10.8) X10*3/uL RBC 4.62 (4.60-5.80) X10*6/uL Hgb 14.6 (14.0-18.0) g/dl Hct 41.5 L (42.0-52.0) % MCV 89.8 (80.0-98.0) fL MCH 31.6 (27.0-33.0) pg MCHC 35.2 (31.0-36.0) g/dl RDW 12.8 (11.0-16.0) % Plt Count 241 (160-400) X10*3/uL MPV 10.5 (9.4-12.4) fL Immature Gran % (Auto) 0.5 H (0.0-0.4) % Neut % (Auto) 60.7 (45-73) % Lymph % (Auto) 28.7 (20-40) % Fallon % (Auto) 5.3 (2-11) % Eos % (Auto) 4.1 H (0-4) % Baso % (Auto) 0.7 (0-2) % Lymph # (Auto) 2.9 (1.2-4.9) X10*3/uL Fallon # (Auto) 0.5 (0.1-1.2) X10*3/uL Eos # (Auto) 0.4 (0.0-0.4) X10*3/uL Baso # (Auto) 0.1 (0.0-0.2) X10*3/uL Abs Immat Gran (auto) 0.05 H (0.00-0.03) X10*3/uL Absolute Neuts (auto) 6.1 (2.0-8.3) x10*3/uL Absolute Nucleated RBC 0.000 (0.0-0.012) X10*3/uL Nucleated RBC % (auto) 0.0 (0.0-0.2) /100WBC Sodium 143 (135-145) mmol/L Potassium 4.3 (3.3-5.1) mmol/L Chloride 111 H (96-108) mmol/L Carbon Dioxide 28 (22-29) mmol/L Anion Gap 8 L (12-20) BUN 7 L (9-16) mg/dL Creatinine 0.71 (0.5-1.4) mg/dL Estim Creat Clear Calc 192.0 Estimated GFR > 60 Random Glucose 82 (60-115) mg/dL Calcium 9.0 (8.4-10.2) mg/dL Total Bilirubin 0.5 (0.0-1.0) mg/dL AST 31 (5-37) U/L ALT 37 (0-40) U/L Alkaline Phosphatase 71 (39-117) U/L Total Protein 6.7 (6.5-8.0) g/dL Albumin 4.1 (3.5-5.0) g/dL COVID-19 (CHANDRA) Negative (Negative) COVID-19 Clin Com See Note Influenza Type A (BERNICE) Negative (Negative) Influenza Type B (BERNICE) Negative (Negative) Influenza A & B Note See Note Discharge Plan Discharge Clinical Impression: Headache Patient Disposition: Home, Self-Care Instructions: Acute Headache (DC) Additional Instructions: DISCHARGE DIAGNOSES: Headache HISTORY OF PRESENTATION: ?Intermittent headaches, frontal with worsening over the past few months EMERGENCY DEPARTMENT COURSE,TESTS, TREATMENTS: While in the ED today you had a CT scan of the brain you received multiple medications including Tylenol, dexamethasone, ketorolac, metoclopramide DISCHARGE MEDICATIONS: ?We have prescribed an as needed medication please use only as needed for significant migraine after attempting ibuprofen Tylenol and oral hydration FOLLOW-UP: ?Call your primary or general physician soon as possible to discuss your symptoms, your ED visit and to discuss follow up plans Neurology INSTRUCTIONS ?& RETURN PRECAUTIONS: If any symptoms change first call your primary physician, if it is after-hours your primary doctors office should have a provider integration specialist you can speak with. If the symptoms are severe or very concerning to you then call 911 or return to the ED. Return for severe worsening headache, neck stiffness, high fevers confusion and other severe symptoms we discussed Eduardo Contreras MD Emergency Physician [facility] Prescriptions: New sumatriptan succinate 50 mg tablet See Rx Instructions .ROUTE .COMPLEX Qty: 7 0RF Rx Instructions: take 1 tab at onset of headache; if no relief may repeat 1 tab after at least 2 hrs; max = 4 tabs/24 hr No Action guaifenesin 1,200 mg tablet extended release 12hr 1,200 mg PO BID Qty: 14 0RF prednisone 20 mg tablet 40 mg PO DAILY Qty: 10 0RF ibuprofen 600 mg tablet 600 mg PO Q6H PRN (Reason: pain) Qty: 30 0RF ibuprofen 400 mg tablet 400 mg PO Q6H PRN (Reason: pain) Qty: 14 0RF acetaminophen 500 mg capsule 1,000 mg PO Q8H PRN (Reason: fever or pain) Qty: 14 0RF polymyxin B sulf-trimethoprim [Polytrim] 10,000 unit- 1 mg/mL drops 1 drp ophthalmic (eye) Q3H 7 Days Qty: 10 0RF Rx Instructions: while awake; do not exceed 6 doses in 24 hours amoxicillin-pot clavulanate 875-125 mg tablet 1 tab PO BID 10 Days Qty: 20 0RF amoxicillin-pot clavulanate 875-125 mg tablet 1 tab PO BID 7 Days Qty: 14 0RF oseltamivir [Tamiflu] 75 mg capsule 75 mg PO BID 5 Days Qty: 10 0RF ibuprofen 600 mg tablet 600 mg PO Q6H PRN (Reason: pain) Qty: 30 0RF ondansetron 4 mg tablet,disintegrating 4 mg PO Q6H PRN (Reason: nausea and vomiting) Qty: 10 0RF acetaminophen [Tylenol Extra Strength] 500 mg tablet 500 mg PO Q6H PRN (Reason: pain) Qty: 30 0RF ondansetron 4 mg tablet,disintegrating 4 mg PO Q8H PRN (Reason: nausea and vomiting) Qty: 10 0RF sulfamethoxazole-trimethoprim [Bactrim DS] 800-160 mg tablet 1 tab PO BID 5 Days Qty: 10 0RF [place] [facility] [place] [facility] [place] Group, Neurology[place] Stand Alone Forms: Work/School Release Interventions: ED Discharge Assessment Last Done: 01/03/25 13:16 Discharge Date/Time: 01/03/25 13:17 Print Language: Kinyarwanda
[2025-01-03 12:44] LABS: Alanine Aminotransferase 37 U/L (0-40); Albumin Level 4.1 g/dL (3.5-5.0); Alkaline Phosphatase 71 U/L (39-117); Anion Gap 8 (12-20); Aspartate Amino Transferase 31 U/L (5-37); Blood Urea Nitrogen 7 mg/dL (9-16); Calcium 9.0 mg/dL (8.4-10.2); Carbon Dioxide 28 mmol/L (22-29); Chloride 111 mmol/L (96-108); Creatinine Clr Calc Pharmacy 192.0; Estimated Glomerular Filt Rate > 60; Potassium 4.3 mmol/L (3.3-5.1); Sodium 143 mmol/L (135-145); Total Protein 6.7 g/dL (6.5-8.0)
[2025-01-03 13:16] VITALS: BP 110/42; PULSE 55; RESP 16; TEMP 36.8; O2SAT 98
--- OUTSIDE RECORDS SUMMARY | 2025-01-03 16:40 | XMS_ITS | Encounter Summary ---
Author Organization [facility] Address [address] [place] [id number] Phone Care Team Providers Care Assembly Adjuster Name Role Phone Jacob Grewal MD Primary Care Provider [phone] Encounter Details Date Type Department Care Team (Late st Contact Info) Description 05/20/2012 Documentation [facility] [place] Family Medicine [address] [place], [place] [id number] Family Medicine, Physician [address] [place], [place] [id number] Social History Tobacco Use Types Packs/Day Years [...] on filedocumented in this encounter Care Teams Assembly Adjuster Relationship Specialty Start Date End Date Jacob Grewal MD [address] [place] [address] PCP - General 11/28/16 09/18/22 documented as of this encounter
--- OUTSIDE RECORDS SUMMARY | 2025-01-03 16:40 | XMS_ITS | Encounter Summary ---
Author Organization [facility] Address [address] [place] [id number] Phone Care Team Providers Care Supervisor Tree Trimming Name Role Phone Jacob Grewal MD Primary Care Provider [phone] Encounter Details Date Type Department Care Team (Late st Contact Info) Description 09/02/2011 Documentation [facility] [place] Family Medicine [address] [place], [place] [id number] Family Medicine, Physician [address] [place], [place] [id number] Social History Tobacco Use Types Packs/Day Years [...] on filedocumented in this encounter Care Teams Supervisor Tree Trimming Relationship Specialty Start Date End Date Jacob Grewal MD [address] [place] [address] PCP - General 11/28/16 09/18/22 documented as of this encounter
--- OUTSIDE RECORDS SUMMARY | 2025-01-03 16:40 | XMS_ITS | Encounter Summary ---
Author Organization [facility] Address [address] [place] [address] Phone Care Team Providers Care Tax Compliance Representative Name Role Phone Jacob Grewal MD Primary Care Provider [phone] Encounter Details Date Type Department Care Team (Late st Contact Info) Description 12/04/2016 Conversion Encounter [facility] [address] [place] [address] Social History Tobacco Use Types Packs/Day Years [...] on filedocumented in this encounter Care Teams Tax Compliance Representative Relationship Specialty Start Date End Date Jacob Grewal MD [address] [place] [address] PCP - General 11/28/16 09/18/22 documented as of this encounter
--- OUTSIDE RECORDS SUMMARY | 2025-01-03 16:40 | XMS_ITS | Clinical Summary ---
Author Organization [facility] Address [address] [place] [phone] Phone Care Team Providers Care Sawmill Production Worker Name Role Phone Unavailable Primary Care Provider [...] 08/01/2020 08/01/2010, 08/30/2003, 03/16/2001, Additional history exists Influenza Vaccines (#1) 2024 03/25/20 17, 02/21/2016, 02/16/2015 COVID-19 Vaccine ( season) 2024 Pneumococcal Vaccine Completed 07/03/2000, 04/06/2000, 01/13/2000 HIB [...] patient's age to complete this topic [place] [address] [place] [address] NON PCC
--- OUTSIDE RECORDS SUMMARY | 2025-01-03 16:40 | XMS_ITS ---
Author Name [facility] Organization Unknown Care Team Organization Name Specialty Phone Email Start Date End Da te [facility] Connor Manuel Primary Care 06/25/20222023 [facility] Stephany Trinh Primary Care 02/25/2022 12/07/19 24
== END 2025-01-03 13:17 | disposition home or self-care (01) ==
PROVIDERS: Physician Assistant Medical; Emergency Provider Emergency Medicine
DX: R51.9 Headache, unspecified (principal); R50.9 Fever, unspecified; H53.149 Visual discomfort, unspecified; Z03.818 Encounter for observation for suspected exposure to other biological agents ruled out
CPT/HCPCS: 36415; 70450; 80053; 85025; 87502; 87635; 96372; 99283; 99284; J1885; J2765; J8540

== ENCOUNTER → 2025-01-03 12:32 | Outpatient (BNV) | payer OTHER, SELFPAY | PROVIDERS: Emergency Provider Emergency Medicine; Visit Provider Radiology Diagnostic Radiology | DX: R51.9 Headache, unspecified (principal) | CPT/HCPCS: 70450 ==

== ENCOUNTER 2025-03-05 13:51 | Emergency (ER) | payer OTHER, SELFPAY ==
[2025-03-05 13:57] VITALS: BP 145/82; PULSE 88; RESP 18; TEMP 37.1; O2SAT 98; BMI 38.0
--- NOTE | 2025-03-05 13:57 | ED.GENADULT ---
HPI - General Adult General Chief complaint: Animal Bite Stated complaint: dog bite, face Time Seen by Provider: 03/05/25 14:03 Source: patient, RN notes reviewed and old records reviewed Mode of arrival: ambulatory Limitations: no limitations History of Present Illness ED Provider: Norberto HPI narrative: Patient is a 25-year-old male who reports being accidentally bitten on the face by the family dog earlier today. The dog lives in the same household and is up-to-date on vaccinations. Patient is unsure of the date of his last tetanus shot. He describes a sensation of bruising developing around the lip but denies any laceration or pain inside the mouth. Also has laceration to collumela of nose. MD complaint: dog bite Related Data Previous Rx's ?Medication ?Instructions ?Recorded sulfamethoxazole 800 1 tab PO BID 5 days #10 tabs 02/10/23 mg-trimethoprim 160 mg tablet (Bactrim DS) polymyxin B sulfate 10,000 1 drp ophthalmic (eye) Q3H 7 days 02/28/23 unit-trimethoprim 1 mg/mL eye #10 mL drops (Polytrim) amoxicillin 875 mg-potassium 1 tab PO BID 10 days #20 tabs 03/04/23 clavulanate 125 mg tablet amoxicillin 875 mg-potassium 1 tab PO BID 7 days #14 tabs 06/20/23 clavulanate 125 mg tablet guaifenesin 1,200 mg tablet, 1,200 mg PO BID #14 tabs 08/28/23 extended release 12 hr ibuprofen 600 mg tablet 600 mg PO Q6H PRN pain #30 tabs 10/10/23 prednisone 20 mg tablet 40 mg (2 x 20 mg) PO DAILY #10 tabs 10/10/23 acetaminophen 500 mg tablet 500 mg PO Q6H PRN pain #30 tabs 04/17/24 (Tylenol Extra Strength) ibuprofen 600 mg tablet 600 mg PO Q6H PRN pain #30 tabs 04/17/24 ondansetron 4 mg disintegrating 4 mg PO Q6H PRN nausea and 04/17/24 tablet vomiting #10 tabs oseltamivir 75 mg capsule (Tamiflu) 75 mg PO BID 5 days #10 caps 04/17/24 ondansetron 4 mg disintegrating 4 mg PO Q8H PRN nausea and 05/04/24 tablet vomiting #10 tabs acetaminophen 500 mg capsule 1,000 mg (2 x 500 mg) PO Q8H PRN 10/29/24 fever or pain #14 caps ibuprofen 400 mg tablet 400 mg PO Q6H PRN pain #14 tabs 10/29/24 sumatriptan succinate 50 mg tablet See Rx Instructions PO .COMPLEX #7 01/03/25 tabs amoxicillin 875 mg-potassium 1 tab PO BID #14 tabs 03/05/25 clavulanate 125 mg tablet Allergies Allergy/AdvReac Type Severity Reaction Status Date / Time No Known Allergies Allergy Verified 03/05/25 13:59 Review of Systems Review of Systems: As per HPI Yes all other systems are reviewed and are negative Constitutional: Constitutional: Reports as per HPI [facility] Past Medical History Medical History No known health problems Social History Social History Household Members: Family Alcohol intake: never Patient Tobacco Use Status: Never used Tobacco Tobacco use type: Cigarette Substance Use Type: Marijuana Advance Directives: No Advance Directives Information Provided: Yes Do you have a plan to hurt others: No Plan Physical Exam ED Vital Signs: Vital Signs - 24 hr 03/05/25 13:57 Temperature 98.8 F Pulse Rate 88 Respiratory Rate 18 Blood Pressure 145/82 H Pulse Oximetry 98 Oxygen Delivery Method Room Air BMI result Body Mass Index 38.0 Vital signs have been reviewed and appear to be correct. Blood pressure normal. Heart rate normal. Respiratory rate normal. Temperature normal. Oxygen saturation normal. Const General: cooperative, healthy appearing and no acute distress Orientation/consciousness: oriented to person, oriented to place, oriented to time and patient oriented x3 Limitations: no limitations [facility] Head: Yes normocephalic and Yes atraumatic Ears: external ears normal General nose exam: Normal external nose present Nose image:  1. laceration Face and sinus: Yes face symmetric Face images:  1. superficial abrasion 2. superficial abrasion 3. superficial abrasion Mouth: Normal oral and palatal mucosa present, lip normal, tongue normal, oropharynx normal and moist mucous membranes Teeth and gingiva: dentition normal Throat: Yes uvula midline Eyes Pupils: Equal, round and reactive pupils present Neck Neck: Yes normal visual inspection and Yes supple Resp Effort & Inspection: normal respiratory effort and able to speak in complete sentences Auscultation: clear to auscultation bilaterally Cardio Rate: regular rate Rhythm: regular rhythm Heart sounds: S1 normal heart sound present and S2 normal heart sound present Skin General skin exam: elasticity normal and turgor normal Neuro General: oriented to person, oriented to place, oriented to time, patient oriented x3, moves all extremities, no focal motor deficits and CN's II-XI intact bilaterally Cranial nerves: Yes Equal, round and reactive pupils present Cognition (Neuro): normal cognition Extrem General: Yes full ROM, Yes no pedal edema and Yes no calf tenderness Psych Mental Status: mental status grossly normal Affect: normal affect Thought process: Normal thought process present Course Course Course Narrative: This is a Rapid Medical Examination (RME) performed by Liliana Mora PA-C in triage. Full HPI, ROS, assessment and treatment plan per primary provider in the Main ED. 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 bleeding controlled. endorses numbness to upper lip. dog is UTD on vaccines including rabies. he is not UTD on tdap. Medications Administered Discontinued Medications Generic Name Dose Route Start Last Admin Trade Name Freq PRN Reason Stop Dose Admin Diphtheria/Tetanus/Acell Pertussis 0.5 ml 03/05/25 14:21 03/05/25 14:55 Diphth,Pertus(Acell),Tet Adult 0.5 Ml Syringe IM 03/05/25 14:22 0.5 ml .ONCE ONE Administration Lidocaine HCl 5 ml 03/05/25 14:34 03/05/25 14:41 Lidocaine Hcl 1 % Mpf 5 Ml Vial INFILTRATI 03/05/25 14:35 Not Given ONCE ONE Lidocaine HCl 1 appl 03/05/25 14:47 03/05/25 14:55 Lidocaine 4 % Cream Kit TOPICAL 03/05/25 14:48 1 appl ONCE ONE Administration Protocol Procedures Laceration Laceration 1: Site: face (nose) Size (cm): 0.5 Description: linear Depth: simple, single layer Local Anesthetic: other anesthetic (topical LMX) Pre-repair: wound explored, irrigated extensively and deep structures intact Skin layer closed with: other (prolene) Size (cm): 6-0 Number of sutures: 1 Technique: simple, interrupted Medical Decision Making Medical Decision Making [facility] Narrative: Patient is a 25-year-old male who reports being accidentally bitten on the face by the family dog earlier today. On exam patient is awake, A+Ox3, VS WNL, afebrile, normal neurological exam without focal deficits, physical exam findings as above. Given reported symptoms and physical exam findings, initial differential includes but is not limited to dog bite, laceration, abrasion. Dog is vaccinated and available for observation; low risk for rabies. Discussed with patient that if the dog begins to show any signs or symptoms of rabies within the next 10 days, he should return to the emergency department for PEP. Will update Tdap in ED today. Abrasions to lip do not cross zaheer border. Wounds thoroughly cleansed with saline and betadine. Will cover with Augmentin prophylactically. One suture placed in nasal laceration as per procedure note. Strict return precautions discussed. Patient verbalized understanding of and agreement with plan. Differential Diagnosis Differential Diagnoses: The differential diagnosis associated with the presentation includes as per [facility] Admission/Observation Consideration of admission/observation: Escalation of care including admission/observation considered Patient would have been admitted to the hospital and transferred to appropriate facility had their clinical presentation warranted hospital admission. External Record Review External record reviewed: Inpatient record, Office record and Outpatient record Prescription Management I considered prescription management with: Antibiotic Discharge Plan Discharge Clinical Impression: Dog bite Patient Disposition: Home, Self-Care Instructions: Animal Bite (ED), Rabies (ED) Additional Instructions: You were evaluated in the emergency department today for an animal bite. Your nose laceration was repaired with one suture. This will need to be removed in 5 days. Your Tdap (tetanus vaccine) was updated at today's visit. Please keep the area surrounding the wounds clean and dry and assess the areas daily for signs of infection (redness, swelling, thick yellow drainage) and return if these occur. You were prescribed antibiotics today, please take the antibiotics prescribed to you in full, as directed. Return to the emergency department if you experience worsening or uncontrolled pain, spreading redness, fevers 100.4? F or greater, pus from your bite, or for any other concerning symptoms. You were not given rabies vaccine or immunoglobulin today because this was considered a low risk dog bite since the dog is up to date on vaccinations. If the dog begins to develop symptoms in the next 10 days of foaming at the mouth, abnormal behavior, difficulty walking, etc, you should bring the dog to the vet and return to the emergency department to receive the rabies series. Prescriptions: New amoxicillin-pot clavulanate 875-125 mg tablet 1 tab PO BID Qty: 14 0RF No Action guaifenesin 1,200 mg tablet extended release 12hr 1,200 mg PO BID Qty: 14 0RF prednisone 20 mg tablet 40 mg PO DAILY Qty: 10 0RF ibuprofen 600 mg tablet 600 mg PO Q6H PRN (Reason: pain) Qty: 30 0RF ibuprofen 400 mg tablet 400 mg PO Q6H PRN (Reason: pain) Qty: 14 0RF acetaminophen 500 mg capsule 1,000 mg PO Q8H PRN (Reason: fever or pain) Qty: 14 0RF polymyxin B sulf-trimethoprim [Polytrim] 10,000 unit- 1 mg/mL drops 1 drp ophthalmic (eye) Q3H 7 Days Qty: 10 0RF Rx Instructions: while awake; do not exceed 6 doses in 24 hours amoxicillin-pot clavulanate 875-125 mg tablet 1 tab PO BID 10 Days Qty: 20 0RF amoxicillin-pot clavulanate 875-125 mg tablet 1 tab PO BID 7 Days Qty: 14 0RF oseltamivir [Tamiflu] 75 mg capsule 75 mg PO BID 5 Days Qty: 10 0RF ibuprofen 600 mg tablet 600 mg PO Q6H PRN (Reason: pain) Qty: 30 0RF ondansetron 4 mg tablet,disintegrating 4 mg PO Q6H PRN (Reason: nausea and vomiting) Qty: 10 0RF acetaminophen [Tylenol Extra Strength] 500 mg tablet 500 mg PO Q6H PRN (Reason: pain) Qty: 30 0RF ondansetron 4 mg tablet,disintegrating 4 mg PO Q8H PRN (Reason: nausea and vomiting) Qty: 10 0RF sumatriptan succinate 50 mg tablet See Rx Instructions .ROUTE .COMPLEX Qty: 7 0RF Rx Instructions: take 1 tab at onset of headache; if no relief may repeat 1 tab after at least 2 hrs; max = 4 tabs/24 hr sulfamethoxazole-trimethoprim [Bactrim DS] 800-160 mg tablet 1 tab PO BID 5 Days Qty: 10 0RF Print Language: Russian
--- OUTSIDE RECORDS SUMMARY | 2025-03-05 14:08 | XMS_ITS | Data Portability ---
Author Organization [place] - [facility], [address] [place] [address] Assessment No assessment recorded. Plan of Treatment Reminders Order Date Submit Date Provider Last Modified By Organization Details Last Modified Time Details Appointments None recorded. Lab urinalysis, dipstick 2022 023 [email or web address] [id number] [facility], [address] [place] [address], [phone], 3 12:09:30 culture, urine 2022 023 EUPORA [facility], [address] [place] [address], [place], [address], 3 06:06:09 Referral gastroenter ologist referral - He has intermitten t / cycling lower abdominal pain for years without evaluation. He has no PCP currently. 2022 023 [email or web address] 1 [facility], [address] [facility], [facility], [place], [address], 3 13:55:15 Procedures None recorded. Surgeries None recorded. Imaging None recorded. Medication Orders Probiotic 10 billion cell capsule 2022 023 [email or web address] 247 [id number], [address] [facility] [place], [place], [address], 3 12:20:52 Patient TargetsNo targets recorded. Patient Instructions Encounter Date Encounter Id Patient Instructions Last Modified By Organization Details Last Modified Time 09/27/2022 [id number] Increase your fluid intake to at least 1.5 liters per day and increase your fiber intake to about 10 grams per day. You may use an over the counter fiber (e.g. Metamucil/citruce l) as a supplement, using it according to the package directions. [email or web address] Not available 09/27/2022 12:11:07 I recommend you take a probiotic. These are good bacteria that may be missing in your stomach or help with GI symptoms you are having (diarrhea or stomach cramping). FLORASTOR is a common probiotic. You can find this at the pharmacy usually on the shelf. Yogurt also contains good bacteria that may help GI symptoms. 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 He has no PCP currently. Referring Physician: Twyla Sanders, Urgent Care, Encounter Date: 09/27/2022 Results Created Date Observation Date Name Description Value Unit Range Abnormal Flag Note LastModifiedBy Organization Detail LastModifiedTime 09/28/1909/29/2022 URINE CULTU RE, ROHITI NE urine culture, routine FINAL REPORT Not Available [facility] ([facility]) [address] [place], [address], 09/29/2022 06:06:09 09/28/19 23 09/29/2022 URINE CULTU REROHITI NE result 1 NO GROWTH Not Available [facility] ([facility]) [address] [place], [address], 09/29/2022 06:06:09 09/28/19 23 09/27/2022 urina lysis , dipst ick Unknown Analyte Normal = light yellow Not Available [facility], [place], [address], 09/27/2022 11:08:46 09/28/19 23 09/27/2022 urina lysis , dipst ick Unknown Analyte Normal = clear Not Available _sean espinoza [address], [place], [address], 09/27/2022 11:08:46 09/28/19 23 09/27/2022 urina lysis , dipst ick Unknown Analyte Normal = negati ve Not Available sean espinoza [address], [place], [address], 09/27/2022 11:08:46 09/28/19 23 09/27/2022 urina lysis , dipst ick Unknown Analyte Normal = Negati ve Not Available sean espinoza [address], [place], [address], 09/27/2022 11:08:46 09/28/19 23 09/27/2022 urina lysis , dipst ick Unknown Analyte Normal = Negati ve Not Available sean espinoza [address], [place], [address], 09/27/2022 11:08:46 09/28/19 23 09/27/2022 urina lysis , dipst ick Unknown Analyte Normal = 1.010, 1.015, 1.020 Not Available sean espinoza [address], [place], [address], 09/27/2022 11:08:46 09/28/19 23 09/27/2022 urina lysis , dipst ick Unknown Analyte Normal = Negati ve Not Available sean espinoza [address], [place], [address], 09/27/2022 11:08:46 09/28/19 23 09/27/2022 urina lysis , dipst ick Unknown Analyte Normal = 6.5, 7.0, 7.5, 8.0 Not Available sean espinoza [address], [place], [address], 09/27/2022 11:08:46 09/28/19 23 09/27/2022 urina lysis , dipst ick Unknown Analyte Normal = Negati ve Not Available 2099sean espinoza [address], [place], [address], 09/27/2022 11:08:46 09/28/19 23 09/27/2022 urina lysis , dipst ick Unknown Analyte Normal = 0.2, 1.0 Not Available 2099sean espinoza [address], [place], [address], 09/27/2022 11:08:46 09/28/19 23 09/27/2022 urina lysis , dipst ick Unknown Analyte Normal = Negati ve Not Available sean espinoza [address], [place], [address], 09/27/2022 11:08:46 09/28/19 23 09/27/2022 urina lysis , dipst ick Unknown Analyte Normal = Negati ve Not Available sean espinoza [address], [place], [address], 09/27/2022 11:08:46 09/28/19 23 09/27/2022 urina lysis , dipst ick Unknown Analyte 1.030 Not Available [facility] [address], [place], [address], 09/27/2022 11:08:46 09/28/19 23 09/27/2022 urina lysis , dipst ick Unknown Analyte 6.5 Not Available [facility] [address], [place], [address], 09/27/2022 11:08:46 09/28/19 23 09/27/2022 urina lysis , dipst ick Unknown Analyte Light Yellow Not Available [address]99sean espinoza [address], [place], [address], 09/27/2022 11:08:46 09/28/19 23 09/27/2022 urina lysis , dipst ick Unknown Analyte Clear Not Available joanne [address], [place], [address], 09/27/2022 11:08:46 09/28/19 23 09/27/2022 urina lysis , dipst ick Unknown Analyte Negati ve Not Available sean espinoza [address], [place], [address], 09/27/2022 11:08:46 09/28/19 23 09/27/2022 urina lysis , dipst ick Unknown Analyte Negati ve Not Available sean espinoza [address], [place], [address], 09/27/2022 11:08:46 09/28/19 23 09/27/2022 urina lysis , dipst ick Unknown Analyte Negati ve Not Available sean espinoza [address], [place], [address], 09/27/2022 11:08:46 09/28/19 23 09/27/2022 urina lysis , dipst ick Unknown Analyte Negati ve Not Available sean espinoza [address], [place], [address], 09/27/2022 11:08:46 09/28/19 23 09/27/2022 urina lysis , dipst ick Unknown Analyte Negati ve Not Available sean espinoza [address], [place], [address], 09/27/2022 11:08:46 09/28/19 23 09/27/2022 urina lysis , dipst ick Unknown Analyte 0.2 E.U./d L Not Available [facility], [place], [address], 09/27/2022 11:08:46 09/28/1909/27/2022 urina lysis , dipst ick Unknown Analyte Negati ve Not Available 2099sean espinoza [address], [address], 09/27/2022 11:08:46 09/28/1909/27/2022 urina lysis , dipst ick Unknown Analyte Negati ve Not Available sean espinoza [address], [place], [address], 09/27/2022 11:08:46 Result Notes None recorded. Problems No Known Problems Procedures Surgical History Date Name Laterality Status Provider Name and Address Organization Details Recorded Time 3 OC-UDS Send Out Template NON DOT completed FAROOQ [facility] 05/16/2022 13:21:38 Imaging Results None recorded. Procedure [...] saturation in Arterial blood by Pulse oximetry Pain severity - 0-10 verbal numeric rating [Score] - Reported Heart rate Respiratory rate Systolic And Diastolic Provider Name and Address Organization Details Last Updated DateTime 3 172.72 cm 36.5 kg/m2 344199. 17 g 97.9 [degF] 98 % 98 % 6 98 /min 18 /min 116/77 mm[Hg] MADISON [facility] 3 11:08:11 Social History Question Answer Notes LastModified by Organizat ion Details LastModified Time Tobacco Smoking Status Never Smoker TAURUS Rodriguez [facility] 09/27/2022 11:06:43 Which Illicit Or Recreational Drugs Have You Used? Marijuana Information not available 09/27/2022 Sex: Unknown Functional Status Question Answer Note LastModified by Organizat ion Details LastModified Time Do you use any illicit or recreational drugs? Yes Information not available 09/27/2022 What is your level of alcohol consumption? Occasional Information not available 09/27/2022 Mental Status None recorded. Family History Relationship [...] split virus, quadrivalent, preservative 5 completed MADISON GOODOMIDND null, [place] - [facility] 09/27/2022 11:06:05 Influenza, split virus, quadrivalent, preservative 6 completed MADISON GOODHIND null, [place] - [facility] 09/27/2022 11:06:05 HPV9 6 completed MADISON GOODAFIA null, [place] - [facility] 09/27/2022 11:06:05 HPV9 5 completed MADISON PARKERHIND null, [place] - [facility] 09/27/2022 11:06:05 COVID-19, mRNA, LNP-S, PF, 30 mcg/0.3 mL dose 1 completed MADISON MACKEYND null, [place] - [facility] 09/27/2022 11:06:05 COVID-19, mRNA, LNP-S, PF, 30 mcg/0.3 mL dose 1 completed MADISON BEST null, [place] - [facility] 09/27/2022 11:06:05 Hep A, ped/adol, 2 dose 5 completed MADISON BEST null, [place] - [facility] 09/27/2022 11:06:05 meningococcal MCV4P 5 completed MADISON BEST null, [place] - [facility] 09/27/2022 11:06:05 Influenza, split virus, quadrivalent, PF 7 completed MADISON BEST null, [place] - [facility] 09/27/2022 11:06:05 Influenza, split virus, quadrivalent, PF 1 completed MADISON BEST null, [place] - [facility] 09/27/2022 11:06:06 Past Encounters Encounter ID Performer Location Encounter Start Date Encounter Closed Date Diagnosis/Indication Diagnosis SNOMED-CT Code Diagnosis ICD10 Code Diagnosis IMO Codes Diagnosis Note [id number] [address] [place] [address] 01/23/2021 15:25:17 01/23/2021 16:43:40 [id number] [address] [place] [address] 12/08/2015 09:11:53 12/08/2015 09:52:56 [id number] [address] [place] [address] 03/04/2019 16:23:53 03/04/2019 17:30:12 [id number] [address] [place] [address] 11/23/2020 14:21:01 11/23/2020 18:45:45 [id number] [address] [place] [address] 01/08/2017 09:58:58 01/08/2017 10:52:46 [id number] [place] [address] [address] 05/16/2022 11:27:58 05/16/2022 13:47:59 History and physical examination, pre-employment [id number] Z02.1 [id number] Genesis Roblesafson, YANETH [address] [place] [address] 05/16/2022 12:50:40 05/16/2022 13:23:50 History and physical examination, pre-employment [id number] Z02.1 [id number] [place] SANDERS [place] [address] [place] [address] 09/27/2022 10:42:16 09/27/2022 12:21:09 Abdominal pain 13590392 R10.9 Intermitte nt cycling abdominal pain for years without evaluation . He has no PCP currently. Acute gastroenteritis 69 [id number] K52.9 GI Clear LiquidsCle ar Liquids:Fr esh [...] Recorded Advance Directives Directive None Recorded Payers Insurance Date Sequence Insurance Name Policy Number Policy Ruiz Covered Member ID Ruiz Member ID Guarantor Name 09/27/2022 1 MEDICAID-ID: [facility] Jimmy Durán [id number] Jimmy Durán 06/18/2024 1 [facility] - [facility] (MEDICAID REPLACEMENT - HMO) NAVA Durán [id number] Jimmy Durán Notes Date Note Type Note Provider Name and Address Organization Details Recorded Time 3 text/html Abdominal Pain UCReported by PatientAbdominal PainFor quality, patient reportscramping,aching, andsharp. For associated symptoms, patient reportschange in bladder/bowel habitsbut reportsno fever,no chills, andno blood in the urine. For source of patient information, patient reportspatient. For location, patient reportsperiumbilicalandsupr apubic. For severity, patient reportsmoderateandpain level 09/27. For duration, patient reportsintermittent. For onset/timing, patient reportswax/wane. For context, patient reportsno travel. For modifying factors, patient reportsnothing gives relief,nothing makes it worse, andmoving bowels(increased bowel frequency soft not watery.). abd pain and vomiting x 2 -3 days, has had this pain for years TWYLA SANDESR MD [facility] [place], [address], [place] - [facility] 09/27/2022 12:26:45
[2025-03-05] MEDS: Lidocaine 4 % Cream KIT 1 APPL TOPICAL (14:55)
[2025-03-05] MEDS: Diphth,Pertus(ACell),Tet Adult 0.5 ML SYRINGE IM (14:55)
[2025-03-05 15:56] VITALS: BP 145/82; PULSE 88; RESP 18; TEMP 37.1; O2SAT 98
== END 2025-03-05 15:56 | disposition home or self-care (01) ==
PROVIDERS: Emergency Provider Emergency Medicine
DX: S01.25XA Open bite of nose, initial encounter (principal); S00.81XA Abrasion of other part of head, initial encounter; Z23 Encounter for immunization; W54.0XXA Bitten by dog, initial encounter; Y93.9 Activity, unspecified; Y92.9 Unspecified place or not applicable; Y99.9 Unspecified external cause status
CPT/HCPCS: 12001; 12011; 90471; 90715; 99282; 99284